=== PATIENT | female | born 1940 | race Caucasian/White ===

== ENCOUNTER 2019-09-21 16:32 | Emergency (ER) | payer OTHER ==
[2019-09-21 17:25] LABS: Basophils % 0.6 % (0-1.3); Hematocrit 29.5 % (36.0-45.0); Lymphocytes % 23.6 % (15.3-44.8); MPV 7.2 fL (7.6-11.3); RBC Red Blood Cell Count 3.34 M/uL (3.86-4.86)
[2019-09-21 17:34] LABS: Potassium 3.2 mmol/L (3.5-5.1)
[2019-09-21 17:46] LABS: Protime INR 0.97
--- NOTE | 2019-09-21 17:47 | EDPHYS ---
Physician Documentation [facility] Name: Mary Morataya Age: 79 yrs Sex: Female : 1940 Arrival Date: 09/21/2019 Time: 16:38 Bed 4 Private MD: ED Physician King Mejia HPI: 09/20 17:15 This 79 yrs old Female presents to ER via Wheelchair with complaints of Blood jr8 clot. 17:15 The patient presents with swelling, tenderness. The complaints affect the left ankle jr8 and calve . Onset: The symptoms/episode began/occurred gradually, 2 week(s) ago. Modifying factors: The symptoms are alleviated by nothing. the symptoms are aggravated by nothing. Associated signs and symptoms: The patient has no apparent associated signs or symptoms. Severity of symptoms: At their worst the symptoms were mild, in the emergency department the symptoms are unchanged. The patient has not experienced similar symptoms in the past. The patient has not recently seen a physician. Patient stated that she had hip surgery in June. Then had pneumonia this past month. Stated that about 2 weeks ago started to noticed lower leg swelling. Became concerned after the swelling did not reduce and is now constant. Had outpatient US scheduled for today. Was found to have acute DVT to left leg. Was then referred to ED at that time . Historical: - Allergies: 16:48 PENICILLINS; ll1 - PMHx: 16:48 COPD; Pneumonia; ll1 - PSHx: 16:48 hip surgery; ll1 - Immunization history:: Adult Immunizations. - Social history:: Smoking status: Patient/guardian denies using tobacco, the patient reports quitting approximately 2 years ago, Patient/guardian denies using alcohol, street drugs. ROS: 17:15 Eyes: Negative for injury, pain, redness, and discharge, ENT: Negative for injury, jr8 pain, and discharge, Neck: Negative for injury, pain, and swelling, Cardiovascular: Negative for chest pain, palpitations, and edema, Respiratory: Negative for shortness of breath, cough, wheezing, and pleuritic chest pain, Abdomen/GI: Negative for abdominal pain, nausea, vomiting, diarrhea, and constipation, Back: Negative for injury and pain, Skin: Negative for injury, rash, and discoloration, Neuro: Negative for headache, weakness, numbness, tingling, and seizure. 17:15 MS/extremity: Positive for swelling, tenderness, of the left leg. Exam: 17:15 Eyes: Pupils equal round and reactive to light, extra-ocular motions intact. Lids and jr8 lashes normal. Conjunctiva and sclera are non-icteric and not injected. Cornea within normal limits. Periorbital areas with no swelling, redness, or edema. ENT: Nares patent. No nasal discharge, no septal abnormalities noted. Tympanic membranes are normal and external auditory canals are clear. Oropharynx with no redness, swelling, or masses, exudates, or evidence of obstruction, uvula midline. Mucous membranes moist. Neck: Trachea midline, no thyromegaly or masses palpated, and no cervical lymphadenopathy. Supple, full range of motion without nuchal rigidity, or vertebral point tenderness. No Meningismus. Cardiovascular: Regular rate and rhythm with a normal S1 and S2. No gallops, murmurs, or rubs. Normal PMI, no JVD. No pulse deficits. Respiratory: Lungs have equal breath sounds bilaterally, clear to auscultation and percussion. No rales, rhonchi or wheezes noted. No increased work of breathing, no retractions or nasal flaring. Abdomen/GI: Soft, non-tender, with normal bowel sounds. No distension or tympany. No guarding or rebound. No evidence of tenderness throughout. Back: No spinal tenderness. No costovertebral tenderness. Full range of motion. Skin: Warm, dry with normal turgor. Normal color with no rashes, no lesions, and no evidence of cellulitis. Neuro: Awake and alert, GCS 15, oriented to person, place, time, and situation. Cranial nerves II-XII grossly intact. Motor strength 5/5 in all extremities. Sensory grossly intact. Cerebellar exam normal. Normal gait. 17:15 Musculoskeletal/extremity: Extremities: grossly normal except: noted in the left leg: swelling, tenderness, ROM: intact in all extremities, Circulation is intact in all extremities. Sensation intact. DVT Exam: swelling, that is mild, of the left leg, tenderness, that is mild, of the left leg, Calves: are not equal in size: left is larger than right. Vital Signs: 16:45 BP 125 / 56; Pulse 92; Resp 16; Temp 98.7; Pulse Ox 97% ; Pain 7/10; ll1 17:12 BP 123 / 58; Pulse 86; Resp 16; Pulse Ox 99% ; sv 18:13 BP 121 / 60; Pulse 82; Resp 16; Pulse Ox 99% ; sv MDM: 16:47 Patient medically screened. 8 17:15 Data reviewed: vital signs, nurses notes, lab test result(s), and as a result, I will jr8 discharge patient. Data interpreted: Pulse oximetry: on room air is 99 %. Interpretation: normal. Counseling: I had a detailed discussion with the patient and/or guardian regarding: the historical points, exam findings, and any diagnostic results supporting the discharge/admit diagnosis, lab results, the need for outpatient follow up, a family practitioner, to return to the emergency department if symptoms worsen or persist or if there are any questions or concerns that arise at home. 17:44 ED course: Hemoglobin 9.5. Patient denies hematemesis, black tarry stool, or BRBPR. No [facility] bleeding disorders that she knows of. All other labs stable. Replaced potassium. Safe to d/c home with anticoagulation and to f/u with PCP. Patient good with plan . 09/20 16:47 Order name: CBC with Diff; Complete Time: 17:31 [facility] 09/20 16:47 Order name: Basic Metabolic Panel; Complete Time: 17:42 [facility] 09/20 16:47 Order name: Protime (+inr) [facility] 09/20 16:47 Order name: Ptt, Activated [facility] 09/20 16:47 Order name: IV; Complete Time: 17:12 [facility] Administered Medications: 18:12 Drug: Potassium Chloride 40 mEq Route: PO; sv 18:12 Follow up: Response: Medication administered at discharge. sv 18:12 Drug: Xarelto 15 mg Route: PO; sv 18:12 Follow up: Response: Medication administered at discharge. sv Disposition: 19:34 Co-signature as Attending Physician, King Mejia MD. [email or web address] Disposition: 09/21/19 17:46 Discharged to Home. Impression: Acute embolism and thrombosis of deep veins of lower extremity. - Condition is Stable. - Discharge Instructions: Deep Vein Thrombosis. - Prescriptions for Xarelto 15 mg Oral Tablet - take 1 tablet by ORAL route 2 times per day for 21 days; 42 tablet. - Medication Reconciliation Form, Thank You Letter, Antibiotic Education, Prescription Opioid Use form. - Follow up: Private Physician; When: 5 - 6 days; Reason: Recheck today's complaints, Continuance of care, Re-evaluation by your physician. - Problem is new. - Symptoms have improved. Signatures: Dispatcher [employer] Acacia Connelly RN RN Parth Figueroa PA PA jr8 Juan M Frey RN RN 1 King Mejia MD MD [email or web address] Corrections: (The following items were deleted from the chart) 18:13 17:46 09/21/2019 17:46 Discharged to Home. Impression: Acute embolism and thrombosis of sv deep veins of lower extremity. Condition is Stable. Forms are Medication Reconciliation Form, Thank You Letter, Antibiotic Education, Prescription Opioid Use. Follow up: Private Physician; When: 5 - 6 days; Reason: Recheck today's complaints, Continuance of care, Re-evaluation by your physician. Problem is new. Symptoms have improved. jr8
--- NOTE | 2019-09-21 17:47 | ER ---
Nurse's Notes [facility] Name: Mary Morataya Age: 79 yrs Sex: Female : 1940 Arrival Date: 09/21/2019 Time: 16:38 Bed 4 Private MD: Diagnosis: Acute embolism and thrombosis of deep veins of lower extremity Presentation: 09/20 16:45 Chief complaint: Patient states: Left leg DVT. Sent by outpatient ultrasound. ll1 Coronavirus screen: Proceed with normal triage. Patient denies a cough. Patient denies shortness of breath or difficulty breathing. Patient denies measured and/or subjective temperature greater than 100.4F prior to today's visit. Patient denies travel on a cruise ship or to a country [facility] currently lists as an affected area. Patient denies contact with known and/or suspected case of COVID-19. Ebola Screen: Patient denies travel to an Ebola-affected area in the 21 days before illness onset. Initial Sepsis Screen: Does the patient meet any 2 criteria? HR > 90 bpm. Risk Assessment: Do you want to hurt yourself or someone else? Patient reports no desire to harm self or others. Onset of symptoms was September 21, 2019. 16:45 Method Of Arrival: Wheelchair ll1 16:45 Acuity: TIMOTHY 3 ll1 16:55 Initial Sepsis Screen: Does the patient have a suspected source of infection? No. sv Patient's initial sepsis screen is negative. Historical: - Allergies: 16:48 PENICILLINS; ll1 - PMHx: 16:48 COPD; Pneumonia; ll1 - PSHx: 16:48 hip surgery; ll1 - Immunization history:: Adult Immunizations. - Social history:: Smoking status: Patient/guardian denies using tobacco, the patient reports quitting approximately 2 years ago, Patient/guardian denies using alcohol, street drugs. Screenin:55 Abuse screen: Denies threats or abuse. Denies injuries from another. Nutritional sv screening: No deficits noted. Tuberculosis screening: No symptoms or risk factors identified. Fall Risk None identified. Assessment: 16:55 General: Appears in no apparent distress. comfortable, slender, well developed, sv Behavior is calm, cooperative, appropriate for age. Pain: Complains of pain in left leg Pain currently is 7 out of 10 on a pain scale. Quality of pain is described as shooting, Pain began about 2 weeks ago Is intermittent, Aggravated by increased activity. Neuro: Level of Consciousness is awake, alert, obeys commands, Oriented to person, place, time, situation, Moves all extremities. Full function. Respiratory: Respiratory effort is even, unlabored, Respiratory pattern is regular, symmetrical. Derm: Skin is intact, Skin is pink, warm \T\ dry. Musculoskeletal: Range of motion: intact in all extremities, Swelling present in left leg. 18:13 Reassessment: Patient appears in no apparent distress at this time. No changes from sv previously documented assessment. Patient and/or family updated on plan of care and expected duration. Pain level reassessed. Patient is alert, oriented x 3, equal unlabored respirations, skin warm/dry/pink. 18:13 Reassessment: Pt took her home O2 tank home. sv Vital Signs: 16:45 BP 125 / 56; Pulse 92; Resp 16; Temp 98.7; Pulse Ox 97% ; Pain 7/10; ll1 17:12 BP 123 / 58; Pulse 86; Resp 16; Pulse Ox 99% ; sv 18:13 BP 121 / 60; Pulse 82; Resp 16; Pulse Ox 99% ; sv ED Course: 16:38 Patient arrived in ED. mr 16:47 Triage completed. ll1 16:47 Parth Bell PA is PHCP. jr8 16:47 King Meija MD is Attending Physician. jr8 16:48 Arm band placed on Patient placed in an exam room, on a stretcher. ll1 16:55 Patient has correct armband on for positive identification. Bed in low position. Call sv light in reach. Adult w/ patient. Pulse ox on. NIBP on. Door closed. Head of bed elevated. 16:58 Acacia Neely, KARRI is Primary Nurse. sv 17:00 Inserted saline lock: 20 gauge in left antecubital area, using aseptic technique. Blood sv collected. Flushed left antecubital with 5 ml normal saline. 17:41 Awaiting lab results. sv 18:12 No provider procedures requiring assistance completed. IV discontinued, intact, sv bleeding controlled, No redness/swelling at site. Pressure dressing applied. Administered Medications: 18:12 Drug: Potassium Chloride 40 mEq Route: PO; sv 18:12 Follow up: Response: Medication administered at discharge. sv 18:12 Drug: Xarelto 15 mg Route: PO; sv 18:12 Follow up: Response: Medication administered at discharge. sv Outcome: 17:46 Discharge ordered by . kaleb 18:13 Discharged to home via wheelchair, with family. sv 18:13 Condition: stable 18:13 Discharge instructions given to patient, family, Instructed on discharge instructions, follow up and referral plans. medication usage, Demonstrated understanding of instructions, follow-up care, medications, Prescriptions given X 1. 18:13 Patient left the ED. sv Signatures: Acacia Neely, RN RN Joslyn Miller mr Ray, Parth, Juan M Washington RN RN ll1
[2019-09-21] MEDS ORDERED: POTASSIUM CL SA 10 MEQ TAB PO ONE (17:56)
[2019-09-21] MEDS ORDERED: RIVAROXABAN 15 MG TABLET PO ONE (18:00)
--- OUTSIDE RECORDS SUMMARY | 2019-09-21 18:00 | XMS REPORT | Continuity of Care Document ---
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 ast UNSPECIFIED ORGANISM SEPSIS, Active [facility] st UNSPECIFIED ORGANISM Medications Medication Details Route Status Patient Ordering Order Source Instructions Provider Date Symbicort 80/4.5 2 puff, Active inhalation aerosol INHALATION, 2019 [facility] with adapter BID, 0 Refill(s) tramadol 50 mg = 1 tab, Active hydrochloride 50 PO, Q4H, PRN 2019 [facility] MG Oral Tablet Pain, X 10 day, # 60 tab, 0 Refill(s) Cefuroxime 500 MG 500 mg = 1 Active Oral Tablet tab, PO, BID, 2019 [facility] [Ceftin] X 7 day, # 14 tab, 0 Refill(s), Pharmacy: [facility] [id number] linezolid 600 MG 600 mg = 1 Active Oral Tablet tab, PO, Q12H, 2019 [facility] [Zyvox] X 7 day, # 14 tab, 0 Refill(s), Pharmacy: [facility] [id number] vancomycin + 2001 mg: No Longer Sodium Chloride infuse over Active 2019 [place] 0.9% IV 250 mL 2.5 hours For adult patients only: Round to nearest 250 mg per Medical Staff approval MEDICATION WASTE Product Size: 1000 mg Product Wasted: ___ mg Attn:KARRI-Vancomyc Attn:KARRI-Vanc Inactive 08/10 in trough reminder omycin trough 2019 [facility] 08/10/19 @ reminder 19:30 08/10/19 @ 19:30, Attn:KARRI, Drug form: MISC, Route: MISC, ONCE, 08/10/19 19:00:00 CDT, Stop date: 08/10/19 19:00:00 CDT, 0 Mupirocin 1 appl, Route: No Longer NASAL, Q12H, 2019 [facility] Drug form: OINT, Start date: 08/09/19 21:00:00 CDT, Duration: 5 day, Stop date: 08/14/19 9:00:00 CDT, MRSA Decolonization , 0 vancomycin + 2001 mg: No Longer Sodium Chloride infuse over Active 2019 [place] 0.9% IV 250 mL 2.5 hours For adult patients only: Round to nearest 250 mg per Medical Staff approval MEDICATION WASTE Product Size: 1000 mg Product Wasted: ___ mg Vancomycin Vancomycin Inactive Pharmacy Dosing Pharmacy 2019 [facility] Protocol - BERNARDA Dosing Protocol - BERNARDA, Reminder, Drug form: MISC, Route: MISC, ONCALL, 08/09/19 11:00:00 CDT, Stop date: 08/14/19 23:59:00 CDT, 0 Naproxen 500 mg, 1 tab, No Longer Route: PO, 2019 [facility] Drug form: TAB, BID, Dosing Weight 54.545, kg, PRN Pain Score 4-6, Start date: 08/09/19 9:53:00 CDT, Duration: 30 day, Stop date: 09/08/19 9:52:00 CDT, 0 cefepime Notes: (Same No Longer As: Maxipime) 2019 [facility] MEDICATION WASTE Product Size: 1000 mg Product Wasted: ___ mg meloxicam 15 mg 15 mg = 1 tab, No Longer oral tablet PO, Daily Active 2019 [facility] Robitussin DM 10 mL, PO, Active Sugar Free Q6H, PRN 2019 [facility] Cough/Congesti on, 0 Refill(s) Acetaminophen 325 650 mg = 2 Active MG Oral Tablet tab, PO, Q4H, 2019 [place] [Tylenol] PRN Pain Vitamin C 500 mg 500 mg = 1 Active oral tablet tab, PO, Daily 2019 [facility] Vancomycin 1 ea, Route: Inactive MISC ONCALL, 2019 [facility] Dosing Weight 54.545, kg, Start date: 08/08/19 17:00:00 CDT, Duration: 7 day, Stop date: 08/15/19 16:59:00 CDT, Pharmacy to dose, ABX Indication: Pneumonia vancomycin + 2001 mg: Inactive Sodium Chloride infuse over 2019 [facility] 0.9% IV 250 mL 2.5 hours For adult patients only: Round to nearest 250 mg per Medical Staff approval MEDICATION WASTE Product Size: 1000 mg Product Wasted: ___ mg Tylenol Notes: Do not No Longer exceed [address] gm/day. (Same as: Tylenol) D5LR 1,000 mL 1,000 mL, No Longer Rate: [address] ml/hr, Infuse over: 13.3 hr, Route: IV, Dosing Weight 54.545 kg, Total Volume: 1,000, Start date: 08/08/19 16:12:00 CDT, Duration: 30 day, Stop date: 09/07/19 16:11:00 CDT, 1.59, m2, 0 Albuterol 0.833 Notes: (Same No Longer H MG/ML / as: Duoneb) Active 2019 [facility] Ipratropium [place] 0.167 MG/ML Inhalant Solution Acetaminophen Notes: Do not Inactive exceed 4 2019 gm/day. (Same as: Tylenol) methylPREDNISolone Notes: (Same Inactive SODium SUCCinate as:Solu-MEDROL 2019 , A-Methapred) cefepime Notes: (Same Inactive As: Maxipime) 2019 MEDICATION WASTE Product Size: 1000 mg Product Wasted: ___ mg Vancomycin 2001 mg: Inactive infuse over 2019 2.5 hours For adult patients only: Round to nearest 250 mg per Medical Staff approval MEDICATION WASTE Product Size: 1000 mg Product Wasted: ___ mg Saline Flush 0.9% Notes: Same No Longer as: BD Active 2019 Posif[facility] Sterile Azithromycin Notes: (Same Inactive As: Zithromax 2019 IV) Albuterol 0.833 3 mL, NEB, Active MG/ML / RQ6H, PRN 2019 [facility] Shortness of [place] 0.167 breath, 0 MG/ML Inhalant Refill(s) Solution Albuterol 0.83 NEB, RQID, 0 Active MG/ML Inhalant Refill(s) [address] [facility] st Solution bisacodyl 10 mg 10 mg = 1 Active rectal suppository supp, TN, 2019 [place] Daily, PRN Constipation, 0 Refill(s) Docusate Sodium 100 mg = 1 Active 100 MG Oral cap, PO, BID, 2019 [facility] ast Capsule PRN as needed for constipation, 0 Refill(s) Enoxaparin 30 mg = 0.3 Active mL, SUB-Q, 2019 [id number], 0 Refill(s) Lidocaine 1 patch, TOP, Active Hydrochloride 0.05 Q24H, 0 2019 [facility] MG/MG Transdermal Refill(s) Patch [Lidoderm] Enoxaparin Notes: (Same No Longer as: Lovenox) 2019 remove patch 1 patch, No Longer Route: TOP, Active 2019 Daily, Drug form: ERFILM, Start date: 07/20/19 21:00:00 CDT, Stop date: 08/19/19 9:00:00 CDT, 0 Clindamycin 900 mg, 50 mL, No Longer Route: IVPB, Active 2019 [facility] Drug form: INJ, [id number], Dosing Weight 54.545, kg, (for patients weighing 80kg or greater), Start date: 07/20/19 16:00:00 CDT, Duration: 3 doses or times, Stop date: 07/21/19 8:00:00 CDT, ABX Indication: Surgical Prophylaxis, 0 Sodium Chloride 500 mL, 1500 Inactive 0.9% (Bolus) IV ml/hr, Infuse [facility] Over: 20 minutes, Route: IV, 500, Drug form: INJ, ONCE, Dosing Weight 54.545 kg, Start date: 07/20/19 13:46:00 CDT, PRN Other -See Comment, 0 Hydralazine 10 mg, Route: Inactive IVP, Q20Min, 2019 [facility] Dosing Weight 54.545, kg, PRN Elevated BP, Start date: 07/20/19 13:46:00 CDT, Duration: 2 doses or times, Stop date: Limited # of times Acetaminophen 1,000 mg, Inactive Route: PO, 2019 [facility] Drug form: TAB, ONCE, Dosing Weight 54.545, kg, PRN Pain Score 1-3, Start date: 07/20/19 13:46:00 CDT Oxycodone 5 mg, Route: Inactive Hydrochloride 5 MG PO, Drug form: 2019 [facility] Oral Tablet TAB, Q4H, Dosing Weight 54.545, kg, PRN Pain Score 4-6, Start date: 07/20/19 13:46:00 CDT, Duration: 30 day, Stop date: 08/19/19 13:45:00 CDT Morphine 2 mg, Route: Inactive IVP, Q5Min, 2019 [facility] Dosing Weight 54.545, kg, PRN Pain Score 4-6, Start date: 07/20/19 13:46:00 CDT, Duration: 5 doses or times, Stop date: Limited # of times Fentanyl 25 microgram, Inactive Route: IVP, 2019 [facility] Q5Min, Dosing Weight 54.545, kg, PRN Pain Score 4-6, Priority: Routine, Start date: 07/20/19 13:46:00 CDT, Duration: 4 doses or times, Stop date: Limited # of times Hydromorphone 0.5 mg, Route: Inactive IVP, Q5Min, 2019 [facility] Dosing Weight 54.545, kg, PRN Pain Score 7-10, Start date: 07/20/19 13:46:00 CDT, Duration: 4 doses or times, Stop date: Limited # of times Flumazenil 0.2 mg, Route: Inactive IVP, PRN, 2019 [facility] Dosing Weight 54.545, kg, PRN Benzodiazepine Reversal, Initial dose, Start date: 07/20/19 13:46:00 CDT, Duration: 30 day, Stop date: 08/19/19 13:45:00 CDT Naloxone 0.4 mg, Route: Inactive IVP, Q2MIN, 2019 [facility] Dosing Weight 54.545, kg, PRN Narcotic Reversal, Start date: 07/20/19 13:46:00 CDT, Duration: 8 doses or times, Stop date: Limited # of times Ephedrine 5 mg, Route: Inactive IVP, Q5Min, 2019 [facility] Dosing Weight 54.545, kg, PRN Low Blood Pressure, Start date: 07/20/19 13:46:00 CDT, Duration: 30 day, Stop date: 08/19/19 13:45:00 CDT Albuterol 0.83 2.49 mg, Inactive MG/ML Inhalant Route: NEB, 2019 [place] [facility] Q20Min, Dosing Weight 54.545, kg, PRN Wheezing, Priority: STAT, Start date: 07/20/19 13:46:00 CDT, Duration: 30 day, Stop date: 08/19/19 13:45:00 CDT Diphenhydramine 12.5 mg, Inactive Route: IVP2019 [facility] Drug form: INJ, Q6H, Dosing Weight 54.545, kg, PRN Itching, Start date: 07/20/19 13:46:00 CDT, Duration: 30 day, Stop date: 08/19/19 13:45:00 CDT Ondansetron 4 mg, Route: Inactive IVP, ONCE, 2019 [facility] Dosing Weight 54.545, kg, PRN Nausea & Vomiting, Start date: 07/20/19 13:46:00 CDT glycopyrrolate Route: IV, Inactive (ANES) Drug form: 2019 [facility] INJ, ONCE, Stop date: 07/20/19 13:26:00 CDT neostigmine (ANES) Route: IV, Inactive 07/19/ [facility] H Drug form: 2019 [facility] INJ, ONCE, Stop date: 07/20/19 13:26:00 CDT ondansetron (ANES) Route: IV, Inactive 07/19/ [facility] Drug form: 2019 [facility] INJ, ONCE, Stop date: 07/20/19 12:33:00 CDT dexamethasone Route: IV, Inactive (ANES) Drug form: 2019 [facility] INJ, ONCE, Stop date: 07/20/19 12:33:00 CDT ePHEDrine (ANES) Route: IV, Inactive Drug form: 2019 [facility] INJ, ONCE, Stop date: 07/20/19 12:03:00 CDT ceFAZolin (ANES) Route: IV, Inactive Drug form: 2019 [facility] INJ, ONCE, Stop date: 07/20/19 11:58:00 CDT phenylephrine Route: IV, Inactive (ANES) Drug form: 2019 [facility] INJ, ONCE, Stop date: 07/20/19 11:53:00 CDT lidocaine (ANES) Route: IV, Inactive Drug form: 2019 [facility] INJ, ONCE, Stop date: 07/20/19 11:38:00 CDT fentaNYL (ANES) Route: IV, Inactive Drug form: 2019 [facility] INJ, ONCE, Stop date: 07/20/19 11:38:00 CDT propofol (ANES) Route: IV, Inactive Drug form: 2019 [facility] INJ, ONCE, Stop date: 07/20/19 11:38:00 CDT rocuronium (ANES) Route: IV, Inactive Drug form: 2019 [facility] INJ, ONCE, Stop date: 07/20/19 11:38:00 CDT succinylcholine Route: IV, Inactive (ANES) Drug form: 2019 [facility] INJ, ONCE, Stop date: 07/20/19 11:38:00 CDT Calcium Chloride 1,000 mL, Inactive 0.0014 MEQ/ML / Rate: 75 [facility] Potassium Chloride ml/hr, Infuse 0.004 MEQ/ML / over: 13.3 hr, Sodium Chloride Route: IV, 0.103 MEQ/ML / Dosing Weight Sodium Lactate 54.545 kg, 0.028 MEQ/ML Total Volume: Injectable 1,000, Start Solution date: 07/20/19 10:55:00 CDT, Duration: 30 day, Stop date: 08/19/19 10:54:00 CDT, 1.6, m2 Lactated Ringers Route: IV, Inactive Injection IV Total Volume: 2019 [facility] (ANES) 1000 mL 1,000, Start date: 07/20/19 10:51:00 CDT, Stop date: 07/20/19 11:51:00 CDT Budesonide 0.16 2 puff, Route: No Longer MG/ACTUAT / INHALATION, Active 2019 [facility] formoterol Drug Form: fumarate 0.0045 AERO/A, Dosing MG/ACTUAT Metered Weight 54.545, Dose Inhaler kg, BID, Start date: 07/20/19 9:00:00 CDT, Duration: 30 day, Stop date: 08/18/19 17:00:00 CDT celecoxib Notes: NSAID. No Longer Please check 2019 indication. Not for seizure. (Same As: CeleBREX) Pulmicort Respules Notes: (Same No Longer As: Pulmicort) 2019 [facility] albuterol Notes: SEE RT No Longer DOCUMENTATION 2019 (Same as: Proventil) Thyroxine Notes: Take 1 No Longer hour before or 2019 2 hours after meal; Enteral feeds may interefere with the absorption of this medication.(Sa me as:Levothroid, Synthroid) levothyroxine 50 50 microgram = No Longer mcg (0.05 mg) oral 1 tab, PO, Active [facility] tablet Daily, 0 Refill(s) Budesonide 0.16 2 puff, Active MG/ACTUAT / INHALATION, 2019 t formoterol BID, # 6 gm, 0 fumarate 0.0045 Refill(s) MG/ACTUAT Metered Dose Inhaler gabapentin Notes: (Same No Longer as: Neurontin) 2019 [facility] Albuterol 0.833 Notes: (Same No Longer H MG/ML / as: Duoneb) 2019 [facility] Ipratropium [place] 0.167 MG/ML Inhalant Solution Acetaminophen Notes: Do not No Longer exceed 4 [facility] 2019 [facility] gm/day. (Same as: Tylenol) Tramadol 50 mg, 1 tab, No Longer Route: PO, 2019 [facility] Drug form: TAB, Q6H, Dosing Weight 54.545, kg, PRN Pain Score 4-6, Start date: 07/19/19 20:46:00 CDT, Duration: 5 day, Stop date: 07/24/19 20:45:00 CDT, 0 Morphine Notes: (Same No Longer as:MORPhine 2019 [facility] Sulfate) Docusate Notes: (Same No Longer as: Colace) 2019 [facility] (Do Not Crush) Bisacodyl Notes: (Same No Longer As: Dulcolax, 2019 [facility] Bisco-Lax) tizanidine Notes: (Same No Longer As: Zanaflex) 2019 [facility] Ondansetron Notes: (Same No Longer as: Zofran) 2019 [facility] MEDICATION WASTE Product Size: 4 mg Product Wasted: ___ mg Melatonin Notes: (Same No Longer as: Melatonin) 2019 [facility] Lidocaine 1 patch, No Longer Hydrochloride 0.05 Route: TOP, Active 2019 [facility] MG/MG Transdermal Q24H, Drug Patch [Lidoderm] form: FILM, Start date: 07/19/19 20:45:00 CDT, Duration: 30 day, Stop date: 08/17/19 20:45:00 CDT, 0 NS (Bolus) IV 500 mL, 500 Inactive ml/hr, Infuse 2019 [facility] Over: 1 hr, Route: IV, 500, Drug form: INJ, ONCE, Priority: STAT, Dosing Weight 54.545 kg, Start date: 07/19/19 18:21:00 CDT, Stop date: 07/19/19 18:21:00 CDT, 0 Fentanyl Notes: (Same Inactive as: Sublimaze) 2019 [facility] Preservative free. levothyroxine 50 50 microgram = Active mcg (0.05 mg) oral 1 tab, PO, 2019 [facility] tablet Daily, 0 Refill(s) celecoxib 200 mg 200 mg = 1 Active oral capsule cap, PO, BID, 2019 [facility] 0 Refill(s) Symbicort 160/4.5 2 puff, Active inhalation aerosol INHALATION, 2019 [facility] with adapter BID, 0 Refill(s) Allergies, Adverse Reactions, Alerts Substance Category Reaction Severity Reaction Status Date Comments S ource type Reported codeine Assertion Drug Active allergy [place] [facility] penicillin Assertion Drug Active [facility] allergy [place] tetanus Assertion Drug Active toxoid allergy [place] [facility] Immunizations No Data Provided for This Section Results Order Name Results Value Reference Date Interpretation Comments [place] Range CHEM PANEL POC 0.6 0.5 - 1.4 08/17 Creatinine /2019 [facility] CHEM PANEL eGFR 87 08/17 Result Comment: The [facility] eGFR is calculated using the CKD-EPI formula. In most young, healthy individuals the eGFR will be >90 mL/min/1.73m2 . The eGFR declines with age. An eGFR of 60-89 may be normal in some populations, particularly the elderly, for whom the CKD-EPI formula has not been extensively validated. Use of the eGFR is not recommended in the following populations:< br/>
Bryanna viduals with unstable creatinine concentration s, including patients and those with serious co-morbid conditions.<b r/>
Patie nts with extremes in muscle mass or diet.

The data above are obtained from the National Kidney Disease Education Program (NKDEP) which additionally recommends that when the eGFR is used in patients with extremes of body mass index for purposes of drug dosing, the eGFR should be multiplied by the estimated BMI. HEMATOLOGY RBC Morph See Note Normal 08/10 [facility] (08/11/19 5:01 AM) /2019 [facility] ast HEMATOLOGY Plt Morph Normal Normal 08/10 [facility] (08/11/19 5:01 AM) /2019 [facility] ast HEMATOLOGY Segs 91.6 45.0 - 08/10 [facility] 75.0 /2019 [facility] HEMATOLOGY Lymphocytes 2.9 20.0 - 08/10 [facility] 40.0 [facility] HEMATOLOGY Monocytes 4.4 2.0 - 12.0 08/10 [facility] HEMATOLOGY Eosinophils 0.7 0.0 - 4.0 08/10 [facility] HEMATOLOGY Basophils 0.4 0.0 - 1.0 08/10 [facility] HEMATOLOGY Neutrophils 11.6 1.5 - 8.1 08/10 MH # /2019 [facility] HEMATOLOGY Lymphocytes 0.4 1.0 - 5.5 08/10 MH # /2019 [facility] HEMATOLOGY Monocytes # 0.6 0.0 - 0.8 08/10 [facility] HEMATOLOGY Eosinophils 0.1 0.0 - 0.5 08/10 MH # /2019 [facility] HEMATOLOGY Anisocyte 1+ None Seen 08/10 [facility] *ABN* /2019 [facility] (08/11/19 5:01 AM) HEMATOLOGY Toxic Gran Moderate None Seen 08/10 *ABN* /2019 [facility] (08/11/19 5:01 AM) HEMATOLOGY WBC 12.6 3.7 - 10.4 08/10 [facility] HEMATOLOGY RBC 2.86 4.20 - 08/10 MH 5.40 /2019 [facility] HEMATOLOGY Hgb 8.7 12.0 - 08/10 MH 16.0 [facility] HEMATOLOGY Hct 26.0 36.0 - 08/10 MH 48.0 [facility] HEMATOLOGY MCV 91.1 80.0 - 08/10 MH 98.0 [facility] HEMATOLOGY MCH 30.4 27.0 - 08/10 MH 31.0 [facility] HEMATOLOGY MCHC 33.4 32.0 - 08/10 MH 36.0 [facility] HEMATOLOGY RDW 15.6 11.5 - 05 MH 14.5 [facility] HEMATOLOGY Platelet 254 133 - 450 08/10 [facility] HEMATOLOGY MPV 8.1 7.4 - 10.4 08/10 [facility] TOXICOLOGY Vanco Tr 7.9 08/10 [facility] TOXICOLOGY Vanco Tr TND 1920 08/10 [facility] CHEM PANEL Glucose Lvl 127 70 - 99 08/09 [facility] CHEM PANEL BUN 29 7 - 22 08/09 [facility] CHEM PANEL Creatinine 0.59 0.50 - 08/09 [facility] Lvl 1.40 /2019 [facility] CHEM PANEL Sodium Lvl 135 135 - 145 08/09 [facility] CHEM PANEL Potassium 4.6 3.5 - 5.1 / MH Lvl /2019 [facility] CHEM PANEL Chloride Lvl 103 95 - 109 08/09 [facility] CHEM PANEL CO2 27 24 - 32 08/09 [facility] CHEM PANEL Calcium Lvl 9.0 8.5 - 10.5 08/09 [facility] CHEM PANEL AGAP 9.6 10.0 - 08/09 MH 20.0 [facility] CHEM PANEL eGFR 87 08/09 Result Comment: The [facility] eGFR is calculated using the CKD-EPI formula. In most young, healthy individuals the eGFR will be >90 mL/min/1.73m2 . The eGFR declines with age. An eGFR of 60-89 may be normal in some populations, particularly the elderly, for whom the CKD-EPI formula has not been extensively validated. Use of the eGFR is not recommended in the following populations:< br/>
Bryanna viduals with unstable creatinine concentration s, including patients and those with serious co-morbid conditions.<b r/>
Patie nts with extremes in muscle mass or diet.

The data above are obtained from the National Kidney Disease Education Program (NKDEP) which additionally recommends that when the eGFR is used in patients with extremes of body mass index for purposes of drug dosing, the eGFR should be multiplied by the estimated BMI. HEMATOLOGY RBC Morph Normal Normal 08/09 [facility] (08/10/19 6:06 AM) [facility] ast HEMATOLOGY Plt Morph Normal Normal 08/09 (08/10/19 6:06 AM) [facility] HEMATOLOGY Segs 93.3 45.0 - 08/09 MH 75.0 /2019 [facility] HEMATOLOGY Lymphocytes 1.3 20.0 - 08/09 MH 40.0 2020 [facility] HEMATOLOGY Monocytes 5.0 2.0 - 12.0 08/09 [facility] HEMATOLOGY Basophils 0.4 0.0 - 1.0 05/14 MH /2020 [facility] HEMATOLOGY Neutrophils 13.9 1.5 - 8.1 05/14 MH # /2020 [facility] HEMATOLOGY Lymphocytes 0.2 1.0 - 5.5 05/14 MH # /2020 [facility] HEMATOLOGY Monocytes # 0.7 0.0 - 0.8 05/14 MH /2019 [facility] HEMATOLOGY Basophils # 0.1 0.0 - 0.2 05/14 MH /2019 [facility] HEMATOLOGY WBC 14.9 3.7 - 10.4 05/14 MH /2020 [facility] HEMATOLOGY RBC 2.97 4.20 - 05/14 MH 5.40 /2019 [facility] HEMATOLOGY Hgb 8.6 12.0 - 05/14 MH 16.0 /2019 [facility] HEMATOLOGY Hct 26.8 36.0 - 05/ MH 48.0 /2019 [facility] HEMATOLOGY MCV 90.0 80.0 - 05/ MH 98.0 /2019 [facility] HEMATOLOGY MCH 29.0 27.0 - 05/ MH 31.0 /2019 [facility] HEMATOLOGY MCHC 32.2 32.0 - 05/ MH 36.0 /2019 [facility] HEMATOLOGY RDW 15.1 11.5 - 05/14 MH 14.5 /2019 [facility] HEMATOLOGY Platelet 222 133 - 450 05/14 MH /2019 [facility] HEMATOLOGY MPV 8.6 7.4 - 10.4 05/14 MH /2019 [facility] TOXICOLOGY Vanco Lvl 9.1 05/13 MH /2019 [facility] CHEM PANEL Glucose Lvl 137 70 - 99 05/13 MH [facility] CHEM PANEL BUN 31 7 - 22 05/13 [facility] CHEM PANEL Creatinine 0.71 0.50 - 05/13 MH Lvl 1.40 /2019 [facility] CHEM PANEL Sodium Lvl 135 135 - 145 05/13 MH /2019 [facility] CHEM PANEL Potassium 4.7 3.5 - 5.1 05/13 MH Lvl /2020 [facility] CHEM PANEL Chloride Lvl 101 95 - 109 05/13 [facility] CHEM PANEL CO2 26 24 - 32 05/13 MH /2020 [facility] CHEM PANEL AGAP 12.7 10.0 - 05/13 MH 20.0 /2019 [facility] CHEM PANEL Calcium Lvl 9.9 8.5 - 10.5 05/13 MH /2019 [facility] CHEM PANEL B/C Ratio 44 6 - 25 05/13 [facility] CHEM PANEL Total 6.7 6.4 - 8.4 05/13 MH Protein /2019 [facility] CHEM PANEL Albumin Lvl 1.3 3.5 - 5.0 08/08 [facility] CHEM PANEL Globulin 5.4 2.7 - 4.2 08/08 [facility] CHEM PANEL A/G Ratio 0.2 0.7 - 1.6 08/08 [facility] CHEM PANEL ALT 62 0 - 65 08/08 [facility] CHEM PANEL AST 108 0 - 37 08/08 [facility] CHEM PANEL Alk Phos 94 39 - 136 08/08 [facility] CHEM PANEL Bili Total 0.5 0.2 - 1.3 08/08 [facility] CHEM PANEL eGFR 81 08/08 Result Comment: The [facility] eGFR is calculated using the CKD-EPI formula. In most young, healthy individuals the eGFR will be >90 mL/min/1.73m2 . The eGFR declines with age. An eGFR of 60-89 may be normal in some populations, particularly the elderly, for whom the CKD-EPI formula has not been extensively validated. Use of the eGFR is not recommended in the following populations:< br/>
Bryanna viduals with unstable creatinine concentration s, including patients and those with serious co-morbid conditions.<b r/>
Patie nts with extremes in muscle mass or diet.

The data above are obtained from the National Kidney Disease Education Program (NKDEP) which additionally recommends that when the eGFR is used in patients with extremes of body mass index for purposes of drug dosing, the eGFR should be multiplied by the estimated BMI. HEMATOLOGY Segs 80.0 45.0 - 08/08 MH 75.0 [facility] HEMATOLOGY Bands 8.0 0.0 - 11.0 08/08 [facility] HEMATOLOGY Lymphocytes 3.0 20.0 - 08/08 MH 40.0 [facility] HEMATOLOGY Monocytes 9.0 2.0 - 12.0 08/08 [facility] HEMATOLOGY Neutrophils 15.0 1.5 - 8.1 08/08 MH # /2019 [facility] HEMATOLOGY Lymphocytes 0.5 1.0 - 5.5 08/08 MH # /2019 [facility] HEMATOLOGY Monocytes # 1.5 0.0 - 0.8 08/08 [facility] HEMATOLOGY Tot Cell Ct 100 08/08 [facility] HEMATOLOGY Toxic Gran Slight 08/08 [facility] HEMATOLOGY Large Plt Moderate None Seen 05/13 [facility] *ABN* /2019 [facility] (08/09/19 5:42 AM) HEMATOLOGY WBC 17.1 3.7 - 10.4 08/08 MH /2019 [facility] HEMATOLOGY RBC 3.63 4.20 - 08/08 MH 5.40 /2019 [facility] HEMATOLOGY Hgb 10.6 12.0 - 08/08 MH 16.0 /2019 [facility] HEMATOLOGY Hct 33.2 36.0 - 08/08 MH 48.0 /2019 [facility] HEMATOLOGY MCV 91.4 80.0 - 08/08 MH 98.0 /2019 [facility] HEMATOLOGY MCH 29.2 27.0 - 08/08 MH 31.0 /2019 [facility] HEMATOLOGY MCHC 31.9 32.0 - 08/08 MH 36.0 /2019 [facility] HEMATOLOGY RDW 15.1 11.5 - 08/08 MH 14.5 /2019 [facility] HEMATOLOGY Platelet 259 133 - 450 08/08 [facility] HEMATOLOGY MPV 8.3 7.4 - 10.4 08/08 [facility] CHEM PANEL Lactic Acid 1.3 0.5 - 2.2 08/08 Lvl /2019 [facility] BACTERIAL - MRSA by PCR Positive 1 08/07 Result SEROLOGY *ABN* /2019 Comment: [facility] (08/08/19 4:51 PM) "Significant Findings called to Kiara Little at 08/09/2019 04:19 by DO. Read Back OK." IMMUNOLOGY Coronavirus Not Detected Not 08/07 (COVID-19) (08/08/19 4:51 PM) Detected /2019 [place] GABI CARDIAC BNP 162 <=100 08/07 ENZYMES pg/mL /2019 [facility] ANEMIA Ferritin Lvl 1222 5 - 204 08/07 STUDY /2019 [facility] CARDIAC Total CK 17 12 - 191 08/07 ENZYMES /2019 [facility] CARDIAC Troponin-I 0.02 0.00 - 08/07 ENZYMES 0.40 /2019 [facility] CHEM PANEL Procalcitoni 1.69 0.00 - 08/07 n Lvl 0.10 /2019 [facility] CHEM PANEL Glucose Lvl 49 70 - 99 08/07 Result MH /2019 Comment: [facility] Critical Result(s) called to _Cappf E. at 08/08/2019 15:12 by clarice. Read back OK.
3236 CHEM PANEL BUN 13 7 - 22 08/07 MH /2019 [facility] CHEM PANEL Creatinine <0.15 0.50 - 05/12 MH Lvl 1.40 /2020 [facility] CHEM PANEL Sodium Lvl 134 135 - 145 05/12 MH /2020 [facility] CHEM PANEL Potassium 4.1 3.5 - 5.1 05/12 MH Lvl /2020 [facility] CHEM PANEL Chloride Lvl 104 95 - 109 05/12 MH /2019 [facility] CHEM PANEL CO2 14 24 - 32 05/12 MH /2020 [facility] CHEM PANEL AGAP 20.1 10.0 - 05/12 MH 20.0 /2020 [facility] CHEM PANEL Calcium Lvl 6.8 8.5 - 10.5 05/12 Result MH Comment: [facility] Critical Result(s) called to _Cappf E. at 08/08/2019 15:12 by clarice. Read back OK. CHEM PANEL Total 2.5 6.4 - 8.4 05/12 MH Protein /2020 [facility] CHEM PANEL Albumin Lvl 0.8 3.5 - 5.0 05/12 MH /2020 [facility] CHEM PANEL Globulin 1.7 2.7 - 4.2 05/12 MH /2019 [facility] CHEM PANEL A/G Ratio 0.5 0.7 - 1.6 05/12 MH /2020 [facility] CHEM PANEL ALT 11 0 - 65 05/12 MH /2020 [facility] CHEM PANEL AST 25 0 - 37 05/12 MH /2020 [facility] CHEM PANEL Alk Phos 29 39 - 136 05/12 MH /2019 [facility] CHEM PANEL Bili Total 0.3 0.2 - 1.3 05/12 MH /2019 [facility] CHEM PANEL eGFR 137 05/12 Result Comment: The [facility] eGFR is calculated using the CKD-EPI formula. In most young, healthy individuals the eGFR will be >90 mL/min/1.73m2 . The eGFR declines with age. An eGFR of 60-89 may be normal in some populations, particularly the elderly, for whom the CKD-EPI formula has not been extensively validated. Use of the eGFR is not recommended in the following populations:< br/>
Bryanna viduals with unstable creatinine concentration s, including patients and those with serious co-morbid conditions.<b r/>
Patie nts with extremes in muscle mass or diet.

The data above are obtained from the National Kidney Disease Education Program (NKDEP) which additionally recommends that when the eGFR is used in patients with extremes of body mass index for purposes of drug dosing, the eGFR should be multiplied by the estimated BMI. CHEM PANEL Lactic Acid 1.2 0.5 - 2.2 08/07 MH Lvl /2019 [facility] HEMATOLOGY PT 14.9 12.0 - 08/07 MH 14.7 [facility] HEMATOLOGY INR 1.16 0.85 - 08/07 MH 1.17 /2019 [facility] HEMATOLOGY PTT 30.3 22.9 - 08/07 MH 35.8 [facility] HEMATOLOGY RBC Morph Normal Normal 08/07 MH (08/08/19 2:27 PM) [facility] HEMATOLOGY Plt Morph Normal Normal 08/07 MH (08/08/19 2:27 PM) [facility] HEMATOLOGY Basophils 0.3 0.0 - 1.0 08/07 [facility] HEMATOLOGY Basophils # 0.1 0.0 - 0.2 08/07 [facility] CHEM PANEL Glucose Lvl 96 70 - 99 07/23 [facility] CHEM PANEL BUN 16 7 - 22 07/23 [facility] CHEM PANEL Creatinine 0.54 0.50 - 07/23 MH Lvl 1.40 [facility] CHEM PANEL Sodium Lvl 140 135 - 145 07/23 [facility] CHEM PANEL Potassium 4.0 3.5 - 5.1 07/23 MH Lvl [facility] CHEM PANEL Chloride Lvl 102 95 - 109 07/23 [facility] CHEM PANEL CO2 35 24 - 32 07/23 [facility] CHEM PANEL Calcium Lvl 8.8 8.5 - 10.5 07/23 [facility] CHEM PANEL AGAP 7.0 10.0 - 07/23 MH 20.0 [facility] CHEM PANEL eGFR 90 07/23 Result Comment: The [facility] eGFR is calculated using the CKD-EPI formula. In most young, healthy individuals the eGFR will be >90 mL/min/1.73m2 . The eGFR declines with age. An eGFR of 60-89 may be normal in some populations, particularly the elderly, for whom the CKD-EPI formula has not been extensively validated. Use of the eGFR is not recommended in the following populations:< br/>
Bryanna viduals with unstable creatinine concentration s, including patients and those with serious co-morbid conditions.<b r/>
Patie nts with extremes in muscle mass or diet.

The data above are obtained from the National Kidney Disease Education Program (NKDEP) which additionally recommends that when the eGFR is used in patients with extremes of body mass index for purposes of drug dosing, the eGFR should be multiplied by the estimated BMI. CHEM PANEL Magnesium 2.3 1.8 - 2.4 07/23 MH Lvl /2019 [facility] HEMATOLOGY WBC 4.6 3.7 - 10.4 07/23 MH /2019 [facility] HEMATOLOGY RBC 3.25 4.20 - 07/23 MH 5.40 /2019 [facility] HEMATOLOGY Hgb 9.9 12.0 - 04 MH 16.0 /2019 [facility] HEMATOLOGY Hct 30.1 36.0 - 07/23 MH 48.0 /2019 [facility] HEMATOLOGY MCV 92.3 80.0 - 07/23 MH 98.0 /2019 [facility] HEMATOLOGY MCH 30.4 27.0 - 07/23 MH 31.0 [facility] HEMATOLOGY MCHC 33.0 32.0 - 07/23 MH 36.0 [facility] HEMATOLOGY RDW 14.4 11.5 - 07/23 MH 14.5 [facility] HEMATOLOGY Platelet 229 133 - 450 07/23 MH /2019 [facility] HEMATOLOGY MPV 8.3 7.4 - 10.4 07/23 MH /2019 [facility] HEMATOLOGY Hgb 10.2 12.0 - 07/21 MH 16.0 /2019 [facility] HEMATOLOGY Hct 30.8 36.0 - 07/21 MH 48.0 /2019 [facility] HEMATOLOGY Hgb 9.7 12.0 - 07/20 MH 16.0 /2019 [facility] HEMATOLOGY Hct 29.3 36.0 - 07/20 MH 48.0 /2019 [facility] HEMATOLOGY WBC 9.6 3.7 - 10.4 04 MH /2019 [facility] HEMATOLOGY RBC 3.28 4.20 - 04 MH 5.40 [facility] HEMATOLOGY MCV 92.3 80.0 - 07/20 MH 98.0 /2020 [facility] HEMATOLOGY MCH 30.1 27.0 - 07/20 MH 31.0 [facility] HEMATOLOGY MCHC 32.7 32.0 - 07/20 MH 36.0 [facility] HEMATOLOGY RDW 14.6 11.5 - 07/20 MH 14.5 [facility] HEMATOLOGY Platelet 192 133 - 450 07/20 MH [facility] HEMATOLOGY MPV 8.3 7.4 - 10.4 07/20 MH [facility] HEMATOLOGY Segs 85.5 45.0 - 07/20 MH 75.0 /2019 [facility] HEMATOLOGY Lymphocytes 5.2 20.0 - 04 MH 40.0 [facility] HEMATOLOGY Monocytes 9.0 2.0 - 12.0 07/20 [facility] HEMATOLOGY Eosinophils 0.2 0.0 - 4.0 07/20 MH /2019 [facility] HEMATOLOGY Basophils 0.1 0.0 - 1.0 07/20 [facility] HEMATOLOGY Neutrophils 8.2 1.5 - 8.1 07/20 MH # /2020 [facility] HEMATOLOGY Lymphocytes 0.5 1.0 - 5.5 07/20 MH # /2020 [facility] HEMATOLOGY Monocytes # 0.9 0.0 - 0.8 07/20 [facility] IMMUNOLOGY Coronavirus Not Detected Not 07/20 (COVID-19) (07/20/19 9:04 PM) Detected /2019 [place] [facility] CHEM PANEL Glucose Lvl 98 70 - 99 07/19 [facility] CHEM PANEL BUN 13 7 - 22 07/19 [facility] CHEM PANEL Creatinine 0.63 0.50 - 07/19 Lvl 1.40 [facility] CHEM PANEL Sodium Lvl 141 135 - 145 07/19 [facility] CHEM PANEL Potassium 4.6 3.5 - 5.1 07/19 Lvl /2019 [facility] CHEM PANEL Chloride Lvl 111 95 - 109 07/19 [facility] CHEM PANEL CO2 25 24 - 32 07/19 [facility] CHEM PANEL Calcium Lvl 8.6 8.5 - 10.5 07/19 [facility] CHEM PANEL AGAP 9.6 10.0 - 07/19 MH 20.0 [facility] CHEM PANEL eGFR 86 07/19 Result Comment: The [facility] eGFR is calculated using the CKD-EPI formula. In most young, healthy individuals the eGFR will be >90 mL/min/1.73m2 . The eGFR declines with age. An eGFR of 60-89 may be normal in some populations, particularly the elderly, for whom the CKD-EPI formula has not been extensively validated. Use of the eGFR is not recommended in the following populations:< br/>
Bryanna viduals with unstable creatinine concentration s, including patients and those with serious co-morbid conditions.<b r/>
Patie nts with extremes in muscle mass or diet.

The data above are obtained from the National Kidney Disease Education Program (NKDEP) which additionally recommends that when the eGFR is used in patients with extremes of body mass index for purposes of drug dosing, the eGFR should be multiplied by the estimated BMI. CHEM PANEL Magnesium 2.4 1.8 - 2.4 07/19 Lvl /2019 [facility] CHEM PANEL Phosphorus 3.8 2.5 - 4.5 07/19 [facility] HEMATOLOGY WBC 8.7 3.7 - 10.4 07/19 /2019 [facility] HEMATOLOGY RBC 3.66 4.20 - 07/19 MH 5.40 [facility] HEMATOLOGY MCV 92.4 80.0 - 07/19 MH 98.0 [facility] MCH 29.7 27.0 - 07/19 MH 31.0 [facility] MCHC 32.2 32.0 - 07/19 36.0 [facility] RDW 14.9 11.5 - 07/19 14.5 [facility] Platelet 198 133 - 450 07/19 [facility] HEMATOLOGY MPV 7.9 7.4 - 10.4 07/19 [facility] HEMATOLOGY Segs 77.8 45.0 - 07/19 75.0 [facility] Lymphocytes 9.6 20.0 - 07/19 MH 40.0 [facility] HEMATOLOGY Monocytes 7.4 2.0 - 12.0 07/19 [facility] HEMATOLOGY Eosinophils 4.8 0.0 - 4.0 07/19 [facility] HEMATOLOGY Basophils 0.4 0.0 - 1.0 07/19 [facility] HEMATOLOGY Neutrophils 6.8 1.5 - 8.1 07/19 MH # /2019 [facility] HEMATOLOGY Lymphocytes 0.8 1.0 - 5.5 07/19 # /2019 [facility] HEMATOLOGY Monocytes # 0.6 0.0 - 0.8 07/19 [facility] HEMATOLOGY Eosinophils 0.4 0.0 - 0.5 07/19 # /2019 [facility] BLOOD BANK ABO/Rh A POS 07/18 RESULTS /2019 [facility] BLOOD BANK Antibody Negative 07/18 RESULTS Scrn (07/19/19 6:52 PM) /2019 [facility] CARDIAC Troponin-I <0.02 0.00 - 07/18 ENZYMES 0.40 [facility] CHEM PANEL Glucose Lvl 101 70 - 99 07/18 [facility] CHEM PANEL BUN 17 7 - 22 07/18 [facility] CHEM PANEL Creatinine 0.64 0.50 - 07/18 MH Lvl 1.40 [facility] CHEM PANEL Sodium Lvl 140 135 - 145 07/18 [facility] CHEM PANEL Potassium 4.0 3.5 - 5.1 07/18 MH Lvl /2019 [facility] CHEM PANEL Chloride Lvl 110 95 - 109 07/18 [facility] CHEM PANEL CO2 26 24 - 32 07/18 [facility] CHEM PANEL Calcium Lvl 8.5 8.5 - 10.5 07/18 [facility] CHEM PANEL AGAP 8.0 10.0 - 07/18 MH 20.0 [facility] CHEM PANEL eGFR 85 07/18 Result Comment: The [facility] eGFR is calculated using the CKD-EPI formula. In most young, healthy individuals the eGFR will be >90 mL/min/1.73m2 . The eGFR declines with age. An eGFR of 60-89 may be normal in some populations, particularly the elderly, for whom the CKD-EPI formula has not been extensively validated. Use of the eGFR is not recommended in the following populations:< br/>
Bryanna viduals with unstable creatinine concentration s, including patients and those with serious co-morbid conditions.<b r/>
Patie nts with extremes in muscle mass or diet.

The data above are obtained from the National Kidney Disease Education Program (NKDEP) which additionally recommends that when the eGFR is used in patients with extremes of body mass index for purposes of drug dosing, the eGFR should be multiplied by the estimated BMI. HEMATOLOGY PT 12.5 12.0 - 07/18 MH 14.7 [facility] HEMATOLOGY INR 0.93 0.85 - 07/18 MH 1.17 [facility] HEMATOLOGY Segs 86.0 45.0 - 07/18 MH 75.0 [facility] HEMATOLOGY Lymphocytes 6.5 20.0 - 07/18 MH 40.0 [facility] HEMATOLOGY Monocytes 6.2 2.0 - 12.0 07/18 [facility] HEMATOLOGY Eosinophils 1.0 0.0 - 4.0 04 [facility] HEMATOLOGY Basophils 0.3 0.0 - 1.0 07/18 [facility] HEMATOLOGY Neutrophils 10.6 1.5 - 8.1 07/18 MH # [facility] HEMATOLOGY Lymphocytes 0.8 1.0 - 5.5 07/18 # /2019 [facility] HEMATOLOGY Monocytes # 0.8 0.0 - 0.8 07/18 [facility] HEMATOLOGY Eosinophils 0.1 0.0 - 0.5 07/18 # [facility] URINE AND UA Turbidity Clear Clear 07/18 STOOL (07/19/19 6:52 PM) [facility] URINE AND UA Spec Grav 1.012 <=1.030 07/18 STOOL [facility] URINE AND UA pH 6.0 5.0 - 8.0 07/18 STOOL [facility] URINE AND UA Protein Negative Negative 07/18 STOOL mg/dL mg/dL [facility] URINE AND UA Glucose Negative Negative 07/18 STOOL mg/dL mg/dL [facility] URINE AND UA Ketones Negative Negative 07/18 STOOL mg/dL mg/dL [facility] URINE AND UA Bili Negative Negative 07/18 STOOL *NA* /2019 [facility] (07/19/19 6:52 PM) URINE AND UA Blood Negative Negative 07/18 STOOL (07/19/19 6:52 PM) [facility] URINE AND UA Nitrite Negative Negative 07/18 STOOL (07/19/19 6:52 PM) [facility] URINE AND UA Leuk Est Negative Negative 07/18 STOOL (07/19/19 6:52 PM) [facility] URINE AND UA WBC 4 0 - 5 07/18 [facility] URINE AND UA RBC 1 0 - 2 07/18 [facility] URINE AND UA Sq Epi None Seen 07/18 [facility] URINE AND UA Color Ltyellow 07/18 [facility] URINE AND UA <=1.0 0.1 - 1.0 07/18 [facility] Urobilinogen mg/dL [facility] Pathology Reports No Data Provided for This Section Diagnostic Reports Report Value Date Source Chest w contrast CT Radiation Dose CTDIVOL = 0 (mGy): DLP = 220 (mGy-cm) 08/18/2019 [facility] PROCEDURE INFORMATION: Exam: CT Chest With Contrast Exam date and time: 08/18/2019 3:02 PM Age: 79 years old Clinical indication: Encounter for follow-up exa mination after completed treatment for malignant neoplasm; Additional inf o: /c34.21, z08 TECHNIQUE: Imaging protocol: Computed tomography of the [facility] [facility] with intravenous contrast. Radiation optimization: All CT scans at this facility use at least one of these dose optimization techniques: automated exposure control; mA and/or kV adjustment per patient size (includes targeted e xams where dose is matched to clinical indication); or iterative reconstructio n. Contrast material: OMNI; Contrast volume: 100 ml ; Contrast route: IV; COMPARISON: CHEST WO CONTRAST CT 08/09/2019 9:31 AM RADIATION DOSE METRICS: Total DLP: 220 mGy-cm FINDINGS: Lungs: Severe emphysema with interstitial scarri ng. Dense consolidation posterior segment right upper lobe with progressive cavitation, largest cavity now measuring 4.8 cm in transverse dimension. Po sterior segment right upper lobe more consolidated. Diffuse low-attenuation about the non aerated portion of the lesion suggesting nec rosis. Right lower lobe atelectasis adjacent to the pleural effusion. No definite central mass. Pleural space: Development of small right pleura l effusion. Heart: Moderate coronary artery calcifications. No pericardial effusion. Mediastinum: Upper abdominal images remarkable f or small hiatal hernia. Aorta: Moderate aortic atherosclerosis. Lymph nodes: Unchanged prominent pretracheal lym ph node. No hilar adenopathy. Bones/joints: Osteopenia, spondylosis an d kyphosis with persistent midthoracic vertebral compression fractures, stabilized post vertebroplasty. Stable depression superior endplate L2. Soft tissues: Unremarkable. IMPRESSION: 1. Progressive cavitation of consolidated lesion in the posterior segment of the right upper lobe as described. 2. Severe emphysema with scarring. 3. Development of small right pleural effusion l ower lobe atelectasis. 4. Atherosclerosis with moderate coronary artery calcifications. 5. Small hiatal hernia. Jose David Mcelroy MD On 08/20/2019 14:02:07; VR- [id number] Chest wo contrast CT Radiation Dose CTDIVOL = 0 (mGy): DLP = 345.87 (mGy-cm) 08/09/2019 [facility] PROCEDURE INFORMATION: Exam: CT Chest Without Contrast Exam date and time: 08/09/2019 9:31 AM Age: 79 years old Clinical indication: Shortness of breath; Additi onal info: Chest tightness/pneumonia () TECHNIQUE: Imaging protocol: Computed tomography of the [facility] without contrast. Radiation optimization: All CT scans at this facility use at least one of these dose optimization techniques: automated exposure control; mA and/or kV adjustment per patient size (includes targeted e xams where dose is matched to clinical indication); or iterative reconstructio n. COMPARISON: CHEST WO CONTRAST CT 07/19/2019 8:06 PM RADIATION DOSE METRICS: Total DLP: 345.87 mGy-cm FINDINGS: Lungs: There are severe emphysematous changes wi thin the lungs. There are new consolidative changes with cavitation in the rig ht middle lobe. There is a small air-fluid level within a larger cavitary area. Unchanged nodular scarring in the right lower lobe (3, 157). Recommend six- month follow-up. Pleural base nodule along the major fissure may represent an intrapulmonary lymph node. Pleural space: No pneumothorax. No pleural effus ion. Heart: There are coronary artery calcifications. Aorta: Atheromatous changes are present in the a jean paul. Lymph nodes: A right paratracheal lymph node brooke sures 12 mm short axis , unchanged from prior. Evaluation of hilar adenop athy is limited without contrast. Bones/joints: The bones are demineralized. There are multilevel compression deformities. There are posttreatment changes of cement augmentation at the midthoracic spine. Unchanged appearance of the spine compared to previous exam. Soft tissues: Unremarkable. IMPRESSION: 1. Cavitary right middle lobe pneumonia has deve loped in the interval since prior CT exam dated 07/19/2019 2. Otherwise no significant change from prior. T here are severe emphysematous changes and there is nodular scarring at the rig ht lung base. Recommend follow-up in 3-6 months. 3. Demineralization of the bones with multilevel compression deformities 2 of which have been treated previously with cement a ugmentation. Bhumi Palmer MD On 08/09/2019 10:16:31; VR- [id number] Chest 1view DX PROCEDURE INFORMATION: 08/08/2019 [facility] Exam: XR Chest, 1 View Exam date and time: 08/08/2019 1:46 PM Age: 79 years old Clinical indication: /undifferentiated sepsis TECHNIQUE: Imaging protocol: XR of the chest Views: 1 view. COMPARISON: CHEST 1VIEW DX 07/19/2019 5:48 PM FINDINGS: Lungs: Interstitial opacitie s within the right lower lobe. Correlate clinically for pneumonitis. Pleural space: Unremarkable. No pleural effusion . No pneumothorax. Heart/Mediastinum: Heart size is within normal l imits. Vasculature is unremarkable. Bones/joints: Bones are oste openic. Prior vertebral augmentation with cement in the mid dorsal spine. IMPRESSION: Right lower lobe infiltrate. Conside r pneumonia clinically. Rei tSein MD On 08/08/2019 14:15:01; VR [id number] Pelvis AP DX PROCEDURE INFORMATION: 07/20/2019 [facility] Exam: XR Pelvis Exam date and time: 07/20/2019 4:04 PM Age: 79 years old Clinical indication: Injury or trauma; Injury hi story: S/P hip cuauhtemoc arthroplasty; Additional info: /s/p hip cuauhtemoc art hroplasty TECHNIQUE: Imaging protocol: XR pelvis. Views: 1 or 2 view. COMPARISON: PELVIS AP DX 07/20/2019 12:11 PM FINDINGS: Bones/joints: Postsurgical changes are present r elating to left hip hemiarthroplasty. Hardware appears intact and we ll-positioned. No acute fracture identified. Soft tissues: Soft tissue swelling and scattered foci of soft tissue gas present around the left hip. Skin elio are in place. IMPRESSION: Expected postsurgical changes related to left hi p hemiarthroplasty without evidence of acute complication. Mauricio Del Valle MD On 07/20/2019 17:13:13; RADHACOPI [id number] Pelvis AP DX PROCEDURE INFORMATION: 07/20/2019 [facility] Exam: XR Pelvis Exam date and time: 07/20/2019 12:11 PM Age: 79 years old Clinical indication: Lt hip pain/lt hip hemirathroplasty/x-table pelvis in or1 TECHNIQUE: Imaging protocol: XR pelvis. Views: 1 or 2 view. COMPARISON: HIP 2-3 VIEWS UNI DX, LEFT 07/19/2019 5:52 PM FINDINGS: Intraoperative evaluation f or placement of a left hip prosthesis. Femoral head is been resected in the femoral spacer device truong s been placed. IMPRESSION: Left hip replacement Ben Archer MD On 07/20/2019 12:54:04; [id number] Chest wo contrast CT Radiation Dose CTDIVOL = 0 (mGy): DLP = 350.84 (mGy-cm) 07/19/2019 [facility] PROCEDURE INFORMATION: Exam: CT Chest Without Contrast Exam date and time: 07/19/2019 8:06 PM Age: 79 years old Clinical indication: Patient HX: Slip and fall f rom standing; C/O L hip pain; No head strike, no blood thinners; 150 fentanyl given en route; Pmh hypothyroid; Additional info: /hx of lung CA, hi p FX now. For preop reasons TECHNIQUE: Imaging protocol: Computed tomography of the [facility] without contrast. Total DLP: 350.84 mGy-cm Radiation optimization: All CT scans at this facility use at least one of these dose optimization techniques: automated exposure control; mA and/or kV adjustment per patient size (includes targeted e xams where dose is matched to clinical indication); or iterative reconstructio n. COMPARISON: CHEST 1VIEW DX 07/19/2019 5:48 PM FINDINGS: Lungs: Interstitium shows nonspecific thickening . Right lower lobe shows nonspecific linear opacities which may represent linear atelectasis or scarring. No consolidation. No masses. Pleural space: Unremarkable. No pneumothorax. No pleural effusion. Heart: Coronary arteries contain atherosclerotic calcifications. No cardiomegaly. No pericardial effusion. Aorta: Thoracic aorta contains atherosclerotic c alcifications. No aortic aneurysm. Lymph nodes: Mediastinal lymph nodes show up to 10 mm short axis diameter in the precarinal region. Bones/joints: T7 and T8 vertebral bodies show ky phoplasty cement material. No acute fracture. Soft tissues: Unremarkable. IMPRESSION: No acute findings. Nonspecific interstitial thickening. Ple ase correlate clinically for pulmonary edema. Lizandro Walton MD On 07/19/2019 20:37:39; [id number] Hip wo contrast CT Radiation Dose CTDIVOL = 0 (mGy): DLP = 795.69 (mGy-cm) 07/19/2019 [facility] PROCEDURE INFORMATION: Exam: CT Left Lower Extremity Without Contrast, Hip Exam date and time: 07/19/2019 8:06 PM Age: 79 years old Clinical indication: Patient HX: Slip and fall f rom standing; C/O L hip pain; No head strike, no blood thinners; 150 fentanyl given en route; Pmh hypothyroid; Additional info: /fall, HX of cance r TECHNIQUE: Imaging protocol: CT of the Left lower extremity without contrast was performed. Exam focused on the hip. Total DLP: 795.69 mGy-cm Radiation optimization: All CT scans at this facility use at least one of these dose optimization techniques: automated exposure control; mA and/or kV adjustment per patient size (includes targeted e xams where dose is matched to clinical indication); or iterative reconstructio n. COMPARISON: HIP 2-3 VIEWS UNI DX, LEFT 07/19/2019 5:52 PM FINDINGS: Bones/joints: Osteopenia. Acute, traumatic, impa cted fracture of the left femoral neck. Superiorly and laterally, the frac ture occurs in the subcapital region. Inferiorly and medially, the fra cture is seen within the transcervical region. Mild degenerative change of the left hip . Left hip joint effusion. Degenerative changes in the lumbar spine. Soft tissues: Soft tissue swelling around the fr acture. Vasculature: Atherosclerotic calcifications. Bowel: Diverticulosis is seen within the colon w ithout evidence of diverticulitis. No evidence of bowel obstruction is identified. Reproductive: The uterus is not visualized. IMPRESSION: Mildly impacted fracture of the left femoral nec kIon Nicole MD On 07/19/2019 20:26:03; VR-SWON [id number] Hip 2/3 views uni w PROCEDURE INFORMATION: 07/19/2019 [place] [facility] pelvis DX Exam: XR Left Hip with Pelvis when Performed Exam date and time: 07/19/2019 5:52 PM Age: 79 years old Clinical indication: Pain and injury or trauma; Fall; Hip pain; Left hip; Additional info: /fall TECHNIQUE: Imaging protocol: XR Left hip with pelvis when p erformed. Views: 2 or 3 views. AP 1 view pelvis with 2 vie ws hip COMPARISON: No relevant prior studies available. FINDINGS: Bones/joints: Mildly displaced subcapital fractu re of the left femoral neck. Diffuse osteopenia. Soft tissues: There are no radio-opaque foreign bodies. Notes: If there is further concern, jonatan mmend follow-up radiographs or MRI for complete assessment. IMPRESSION: Mildly displaced subcapital fracture of the left femoral neck. Praveena West MD On 07/19/2019 18:23:37; VR-BMUS [id number] Chest 1view DX PROCEDURE INFORMATION: 07/19/2019 RHONA lopez Exam: XR Chest, 1 View Exam date and time: 07/19/2019 5:48 PM Age: 79 years old Clinical indication: Pain and injury or trauma; Fall; Chest pain; Additional info: /fall TECHNIQUE: Imaging protocol: XR of the chest Views: 1 view. COMPARISON: No relevant prior studies available. FINDINGS: Lungs: Normal lung volumes. No consolidation. Pleural space: No pleural effusion. No pneumoth orax. Heart/Mediastinum: Heart size is within normal l imits. Bones/joints: Unremarkable. IMPRESSION: No acute cardiopulmonary findings. Praveena West MD On 07/19/2019 18:22:29; VR-BMUS [id number] Consultation Notes No Data Provided for This Section Discharge Summaries No Data Provided for This Section History and Physicals No Data Provided for This Section Vital Signs Vital Sign Value Date Comments Source Systolic (mm Hg) 121 08/30/2019 [facility] Diastolic (mm Hg) 47 08/30/[address] [address] Heart Rate 97 08/30/2019 [facility] Rate 20 08/30/2019 [facility] Weight 52.273 08/30/2019 [facility] Temperature Oral (F) 97.8 F 08/11/2019 [facility] Rate 103 08/11/2019 [facility] Rate 18 08/11/2019 [facility] Systolic (mm Hg) 120 08/11/2019 [facility] Diastolic (mm Hg) 52 08/11/[address] [facility] [address] Temperature Oral (F) 98 F 08/11/2019 [facility] Rate 103 08/11/2019 [facility] Systolic (mm Hg) 126 08/11/2019 [facility] Diastolic (mm Hg) 57 08/11/[address] [facility] [address] Temperature Oral (F) 97.6 F 08/11/2019 [facility] Rate 95 08/11/2019 [facility] Rate 16 08/11/2019 [facility] Systolic (mm Hg) 111 08/11/2019 [facility] Diastolic (mm Hg) 50 08/11/[address] Respitory Rate 16 08/11/2019 [facility] Height 165.1 cm 08/08/2019 [facility] BMI Calculated 20.01 08/08/2019 [facility] Weight 54.545 08/08/2019 [facility] Temperature Oral (F) 97.9 F 07/24/2019 [facility] Rate 90 07/24/2019 [facility] Rate 16 07/24/2019 [facility] Systolic (mm Hg) 135 07/24/2019 [facility] Diastolic (mm Hg) 60 07/24/[address] Temperature Oral (F) 98.2 F 07/24/2019 [facility] Rate 94 07/24/2019 [facility] Rate 16 07/24/2019 [facility] Systolic (mm Hg) 152 07/24/2019 [facility] Diastolic (mm Hg) 72 07/24/[address] [facility] [address] Respitory Rate 16 07/24/2019 [facility] Temperature Oral (F) 97.6 F 07/24/2019 [facility] Rate 80 07/24/2019 [facility] Systolic (mm Hg) 140 07/24/2019 [facility] Diastolic (mm Hg) 61 07/24/[address] [facility] [address] Height 167.64 cm 07/19/2019 [facility] BMI Calculated 19.41 07/19/2019 [facility] Weight 54.545 07/19/2019 [facility] Systolic (mm Hg) 131 04/07/2019 [facility] Diastolic (mm Hg) 67 04/07/[address] [facility] [address] Heart Rate 88 04/07/2019 [facility] Rate 16 04/07/2019 [facility] Height 167.64 cm 04/07/2019 [facility] Weight 54.602 04/07/2019 [facility] BMI Calculated 19.43 04/07/2019 [facility] Encounters Location Location Encounter Encounter Reason Attending ADM DC Stat us Source Details Type Number For Provider Date Date [facility] [id number] Atul 04/07 04/08 [facility]2019 [facility] [id number] Atul 04/12 05/12 [facility] [id number] Kaylie 07/18 07/23 [facility] Mary /2019 [facility] [id number] [facility] [id number] Atul 08/17 08/18 [facility] Prather [facility] [id number] Irfan 08/29 08/30 [facility] Jawed /2019 [facility] Procedures No Data Provided for This Section Assessment and Plan Assessment and Plan Date Source Extracted from:Title: Clinical Document 08/11/2019 [facility] Author: Jose Avila MD Date: 08/11/19 Discharge Summary Name: Hood Hernandez Record Number: [id number] Admission Date: 08/08/2019 Discharge Date 5: Copies to: Diagnoses: Hospital-acquired pneumonia Cavitary pneumonia History of COPD Lung cancer History of recent hip fracture Severe weakness Cachexia Hypertension Hyperlipidemia Procedures: Chief Complaint change in mental status HPI: See the HPI PMH: See the HPI Hospital course: 79-year-old female was at home she was very much weak and her white count was very high. She was admitted with hospital-acquired pneumonia. Patient had a cavitary lung lesion. The tracie bernardojuliana was seen by the infectious disease and the pulmonary. Patient responded well to the IV antibiotic. Patient has MRSA positive in the nose. Responded well to the antibiotic. Right now she is kanika rt awake oriented x3. No pain no nausea no vomiting. Mild coughing otherwise she is feeling fine. Discussed with the infectious disease they think patient can go home with p.o. antibiotic. Discharge condition: Stable Recent signficant physical findings: Vitals are stable Recent significant lab and radiology results: Labs (Last four charted values) WBC H 12.6 (JULY 27) H 14.9 (AUGUST 09) H 17.1 (AUGUST 08) H 16.6 (AUGUST 07) Hgb L 8.7 (AUGUST 10 ) L 8.6 (AUGUST 09) L 10.6 (AUGUST 08) L 9.2 (AUGUST 07) Hct L 26.0 (JULY 27) L 26.8 (AUGUST 09) L 33.2 (AUGUST 08) L 28.3 (AUGUST 07) Plt 254 (AUGUST 10) 222 (AUGUST 09) 259 (AUGUST 08) 281 (AUGUST 07) Na 135 (AUGUST 09) 135 (AUGUST 08) L 134 (AUGUST 07) K 4.6 (AUGUST 09) 4.7 (AUGUST 08) 4.1 (AUGUST 07) CO2 27 (AUGUST 09) 26 (AUGUST 08) L 14 (AUGUST 07) Cl 103 (AUGUST 09) 101 (AUGUST 08) 104 (AUGUST 07) Cr 0.59 (AUGUST 09) 0.71 (AUGUST 08) L <0.15 (AUGUST 07) BUN H 29 (AUGUST 09) H 31 (AUGUST 08) 13 (AUGUST 07) Glucose Random H 127 () H 137 (AUGUST 08) C 49 (AUGUST 07) Ca 9.0 (AUGUST 09) 9.9 (AUGUST 08) C 6.8 (AUGUST 07) PT H 14.9 (AUGUST 07) INR 1.16 (AUGUST 07) PTT 30.3 (AUGUST 07) Troponin 0.02 (AUGUST 07) Total CK 17 (AUGUST 07) Discharge therapy: Medications continue home medication We will add Zyvox 600 p.o. twice daily f or 7 days and Ceftin 500 p.o. twice daily for 7 days Diet heart healthy diet Activity as tolerated Follow up with me in a week Extracted from:Title: Cardiology Progress Note 07/24/2019 [facility] Author: Harjinder Mcintyre MD Date: 07/24/19 Impression and Plan Cardiac preop L femur fracture now s/p L hemiarthroplasty on 07/20/19 COPD Lung cancer Hypothyroidism - From cardiology standpoint, given pt's age and comorbidities, she is at moderate risk for surgery, risk level is justified and acceptable - Now s/p L hemiarthroplasty on 07/20/19 - S/p surgery w/o complications - Hgb stable - Consider statin for CV risk reduction - On LT4 - F/u with cardiology for further risk stratification as out pt Thank you. Cardiology will follow. Extracted from:Title: Consult Note Author: Savannah Galloway MD Date: 07/20/19 1 day old closed left hip femur neck fracture plan: Recommend surgery left cuauhtemoc hip arthroplasty Risks and benefits were reviewed with tracie soares. Potential complications were discussed that include but not limited to infection, wound complication, injury to nerve, anesthesia complication, dislocation of hip, painful gait. Consent was obtained. Femoral neck fracture(S72.009A) Extracted from:Title: History and Physical Author: Rose Dudley MD Date: 07/19/19 79-year-old female with history of COPDo n 5 L home O2,lung cancer status post recent radiation completed in May, former tobacco abusewho presented to the EDfollowing a fall onto her left hip. Left femoral neck fracture - npo after midnight for possible surgical intervention, per orthopedics -We will consult cardiology for preoperative clearance -will start multimodal pain control COPD Chronic hypoxic respiratory failure - stable on 4-5 L home O2 - currently no sign of exacerbation - duonebs prn Lung cancer - s/p recent radiation - CT chest pending, will f/u results SCDs anticipate 2-3 midnights Plan of Care No Data Provided for This Section Social History Social History Date Source Social History TypeResponse 08/09/2019 [facility] Alcohol Never Employment/School Status: Retired. Substance Abuse Use: None. Smoking Status Former smoker; Exposure to Tobacco Smoke None; Cigarette Smoking Last 365 Days No; Reg Smoking Cessation Counseling Yes entered on: 08/30/19 Family History No Data Provided for This Section Advance Directives No Data Provided for This Section Functional Status No Data Provided for This Section
--- OUTSIDE RECORDS SUMMARY | 2019-09-21 18:11 | XMS REPORT | Continuity of Care Document ---
:1940 Author Organization [facility] t Address [address] [place] [address] Care Team Providers Name Role Phone AMARILIS IRENE Primary Care Physician Rey Prather Attending Clinician Tarah Avila Attending Clinician Mary Attending Clinician AMARILIS Attending Clinician Unavailable Tarah Avila Admitting Clinician Mayr Admitting Clinician AMARILIS Admitting Clinician Unavailable Payers Payer Name Policy Type Policy Number Effective Date Expiration Date S [facility] Medicare A & B [id number] 2005 [facility] 00[facility] Problems Condition Condition Condition Status Onset Resolution Last Treating Co mments Source Name Details Category Date Date Treatment Clinician Date F/U Diagnosis Active 2019-08-30 Mem oria ADENOCARCI 08-27 10:32:00 l NOMA OF F/U 00:00: Talha THE 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 [facility] PNEUMONIA, Diagnosis Active 2019-08-18 [facility] SEPSIS 08-07 21:57:00 l 00:00: [place] PNEUMONIA, 00 SEPSIS Active 08/08/2019 [facility] SEPSIS Diagnosis Active 2019-08-08 [facility] oria 08-07 13:58:00 l SEPSIS 00:00: [place] 00 Active 08/08/2019 [facility] C34.31 = Diagnosis Active 2019-08-18 M emoria MALIGNANT 07-24 14:06:00 l NEOPLASM C34.31 = 00:00: Herm nancy OF LOWER MALIGNANT 00 LOB NEOPLASM OF LOWER LOB Active 07/25/2019 [facility] FEMORAL Diagnosis Active 2019-07-27 Az moria NECK 07-18 21:47:00 l FRACTURE FEMORAL 00:00: Zara nn NECK 00 FRACTURE Active 07/19/2019 [facility] FALL Diagnosis Active 2019-07-19 [facility] oria 07-18 18:57:00 l FALL 00:00: Talha 00 Active 07/19/2019 [facility] ADENOCARCI Diagnosis Active 2019-04-25 [facility] NOMA OF 04-10 13:41:00 l THE RIGHT 00:00: Talha LUNG ADENOCARCI 00 NOMA OF THE RIGHT LUNG Active 04/10/2019 [facility] RIGHT LUNG Diagnosis Active 2019-04-07 [facility] CANCER 1-03 12:55:00 l CONSULT RIGHT 00:00: Talha LUNG 00 CANCER CONSULT Active 03/31/2019 [facility] Pneumonia Pneumonia Problem Active [facility] Disease of Problem Active 2019-09-01 M emoria thyroid 22:48:44 l gland Disease [place] (disorder) of thyroid gland (disorder) Active Problem 09/01/2019 [facility] MALIGNANT Diagnosis Active 2019-08-30 Memoria NEOPLASM 10:32:00 l OF LOWER Talha LOBE, MALIGNANT RIGHT NEOPLASM OF LOWER LOBE, RIGHT Active [facility] FRACTURE Diagnosis Active 2019-07-27 M emoria OF UNSP 21:47:00 l PART OF FRACTURE Zara nn NECK OF OF UNSP UNSP FE PART OF NECK OF UNSP FE Active [facility] PNEUMONIA, Diagnosis Active 2019-08-18 Memoria UNSPECIFIE 21:57:00 l D ORGANISM Mike n PNEUMONIA, UNSPECIFIE D ORGANISM Active [facility] SEPSIS, Diagnosis Active 2019-08-18 Me moria UNSPECIFIE 21:57:00 l D ORGANISM SEPSIS, Her ling UNSPECIFIE D ORGANISM Active [facility] Allergies, Adverse Reactions, Alerts Allergy Allergy Status Severity Reaction(s) Onset Inactive Treating Comm ents Source Name Type Date Date Clinician midazola DA Active MO 2019- [facility] m 2-05 [place] 00:00: e 00 [facility] [place] Procaine DA Active U 2019-0 [facility] HCl 8 [place] 00:00: e 00 [facility] [place] Haloperi DA Active U 2019-0 [facility] dol 8- [facility] Lactate 00:00: e 00 [facility] [place] Penicill DA Active U 2019-0 [facility] ins 11-21 [facility] 00:00: e 00 [facility] Beef FA Active U 2019-0 [facility] Containi 11-21 [facility] ng 00:00: e Products 00 [facility] codeine DA Active U 2019-0 [facility] 8-26 [place] 00:00: e 00 [facility] [place] mesalami DA Active U 2019-0 [facility] ne 8- [facility] 00:00: e 00 [facility] [place] diethylt DA Active U 2019-0 [facility] oluamide 11-21 [facility] 00:00: e 00 [facility] [place] tetanus DA Active U 2019-0 [facility] immune 8 [place] globulin 00:00: e 00 [facility] [place] celery FA Active SV 2019-0 [facility] 8-26 [place] 00:00: e 00 [facility] [place] Morphine Allergy Active 2017-[address] [facility] e 00 s [facility] [place] Procaine Allergy Active [facility] 5[facility]: Patient e 00 s [facility] [place] Penicill Allergy Active 2011- [facility]: Patient e 00 s [facility] [place] Procaine DA Active U 2010-0 [facility] HCl 2-18 [place] 00:[facility]: e 00 [facility] Haloperi DA Active U [facility] dol 2-18 [place] Lactate 00:00: e 00 [facility] Penicill DA Active U [facility] ins 2-18 [place] 00:00: e 00 [facility] Beef FA Active U [facility] Containi 2-18 [place] ng 00:00: e Products 00 [facility] Center codeine DA Active U 2010- [facility] 2-18 [place] 00:00: e 00 [facility] mesalami DA Active U [facility] ne 2-18 [place] 00:00: e 00 [facility] diethylt DA Active U [facility] oluamide 2-18 [place] 00:00: e 00 [facility] tetanus DA Active U 2010- [facility] immune 2-18 [place] globulin 00:00: e 00 [facility] Center celery FA Active SV 2010- [facility] 2-18 [place] 00:00: e 00 [facility] BLACK DA Active U [facility] PEPPER 2-18 [place] 00:00: e 00 [facility] PAINT DA Active U 2009- [facility] 3-30 [place] 00:00: e 00 [facility] TREES DA Active U 2009- [facility] 3-30 [place] 00:00: e 00 [facility] PEAS DA Active U 2008- [facility] 2-05 [place] 00:00: e 00 [facility] Center codeine codeine Active Memoria l [place] penicill penicill Active Memori a in in l [place] tetanus tetanus Active [facility] toxoid toxoid l [place] Social History Social Habit Start Date Stop Date Quantity Comments Source Social History 2019-08-09 2019-08-09 [facility] viet 04:53:14 04:53:14 Medications Ordered Filled Start Stop Current Ordering Indication Dosage Frequency Signature Comments Components Source Medication Medication Date Date Medication? Clinician (SIG) Name Name Symbicort 2019- Yes 2 puff, Memor ia 80/4.5 6-03 INHALATION l inhalation 16:43: , BID, 0 Her ling aerosol 00 Refill(s) with adapter tramadol 0 Yes 50 mg = 1 Ravindra shankar hydrochlori 5-15 tab, PO, l de 50 MG 18:11: Q4H, PRN Zara nn Oral Tablet 00 Pain, X 10 day, # 60 tab, 0 Refill(s) Cefuroxime Yes 500 mg = 1 M emoria 500 MG Oral 5-15 tab, PO, l Tablet 18:09: BID, X 7 [place] [Ceftin] 00 day, # 14 tab, 0 Refill(s), Pharmacy: [facility] [id number] linezolid 2020-0 Yes 600 mg = 1 Me moria 600 MG Oral 5-15 tab, PO, l Tablet 18:09: Q12H, X 7 Mike n [Zyvox] 00 day, # 14 tab, 0 Refill(s), Pharmacy: [facility] vancomycin 2019-0 No 2000 mg: Me moria + Sodium 5-15 infuse l Chloride 01:00: over 2.5 Zara nn 0.9% IV 250 00 hours For mL adult patients only: Round to nearest 250 mg per Medical Staff approval MEDICATION WASTE Product Size: 1000 mg Product Wasted: ___ mg Attn:KARRI-V 2019-0 No Attn:KARRI- Sera ancomycin 5-15 Vancomycin l trough 00:00: trough [place] reminder 00 reminder 08/10/19 @ 08/10/19 @ 19:30 19:30 *, Attn:KARRI, Drug form: MISC, Route: MISC, ONCE, 08/10/19 19:00:00 CDT, Stop date: 08/10/19 19:00:00 CDT, 0 Mupirocin 2019-0 No 1 appl, Memor ia 5-14 Route: l 02:00: NASAL, [place] 00 Q12H, Drug form: OINT, Start date: 08/09/19 21:00:00 CDT, Duration: 5 day, Stop date: 08/14/19 9:00:00 CDT, MRSA Decoloniza tion, 0 vancomycin 2019-0 No 2000 mg: Me moria + Sodium 5-13 infuse l Chloride 22:00: over 2.5 Zara nn 0.9% IV 250 00 hours For mL adult patients only: Round to nearest 250 mg per Medical Staff approval MEDICATION WASTE Product Size: 1000 mg Product Wasted: ___ mg Vancomycin 2020-0 No Vancomycin M [facility] 08-08 Pharmacy l Dosing 16:00: Dosing Talha Protocol - 00 Protocol - BRENARDA BERNARDA, Reminder, Drug form: MISC, Route: MISC, ONCALL, 08/09/19 11:00:00 CDT, Stop date: 08/14/19 23:59:00 CDT, 0 Naproxen 2020-0 No 500 mg, 1 Ravindra shankar 5-13 tab, l 14:53: Route: PO, [place] 00 Drug form: TAB, BID, Dosing Weight 54.545, kg, PRN Pain Score 4-6, Start date: 08/09/19 9:53:00 CDT, Duration: 30 day, Stop date: 09/08/19 9:52:00 CDT, 0 cefepime 2020-0 No Notes: Memoria 5-13 (Same As: l 08:00: Maxipime) MEDICATION WASTE Product Size: 1000 mg Product Wasted: ___ mg meloxicam 2020-0 No 15 mg = 1 Mem oria 15 mg oral 5-13 tab, PO, l tablet 02:04: Daily Robitussin 2020-0 Yes 10 mL, PO, M emoria DM Sugar 5-13 Q6H, PRN l Free 02:04: Cough/Lars estion, 0 Refill(s) Acetaminoph 2020-0 Yes 650 mg = 2 Memoria en 325 MG 5-13 tab, PO, l Oral Tablet 02:04: Q4H, PRN He rmann [Tylenol] 00 Pain Vitamin C 2020-0 Yes 500 mg = 1 Me moria 500 mg oral 5-13 tab, PO, l tablet 02:04: Daily Vancomycin 2020-0 No 1 ea, Memori a 5-12 Route: l 22:00: MISC, ONCALL, Dosing Weight 54.545, kg, Start date: 08/08/19 17:00:00 CDT, Duration: 7 day, Stop date: 08/15/19 16:59:00 CDT, Pharmacy to dose, ABX Indication : Pneumonia vancomycin 2020-0 No 2001 mg: Me moria + Sodium 5-12 infuse l Chloride 22:00: over 2.5 Zara nn 0.9% IV 250 00 hours For mL adult patients only: Round to nearest 250 mg per Medical Staff approval MEDICATION WASTE Product Size: 1000 mg Product Wasted: ___ mg Tylenol 2020-0 No Notes: Do Memor ia 5-12 not exceed l 21:15: 4 gm/day. [place] (Same as: Tylenol) D5LR 1,000 2020-0 No 1,000 mL, Me moria mL -12 Rate: 75 l 21:12: ml/hr, Infuse over: 13.3 hr, Route: IV, Dosing Weight 54.545 kg, Total Volume: 1,000, Start date: 08/08/19 16:12:00 CDT, Duration: 30 day, Stop date: 09/07/19 16:11:00 CDT, 1.59, m2, 0 Albuterol 2019-0 No Notes: Memori a 0.833 MG/ML - (Same as: l / 21:12: Duoneb) Ipratropium 00 [place] 0.167 MG/ML Inhalant Solution Acetaminoph 2019-0 No Notes: Do M emoria en -12 not exceed l 20:55: 4 gm/day. (Same as: Tylenol) methylPREDN 2019-0 No Notes: Ravindra shankar ISolone -12 (Same l SODium 20:07: as:Solu-ME Zara nn SUCCinate 00 DROL, A-Methapre d) cefepime 2019-0 No Notes: Memoria 5-12 (Same As: l 19:23: Maxipime) MEDICATION WASTE Product Size: 1000 mg Product Wasted: ___ mg Vancomycin 2019-0 No 2000 mg: Me moria 5-12 infuse l 19:00: over 2.5 hours For adult patients only: Round to nearest 250 mg per Medical Staff approval MEDICATION WASTE Product Size: 1000 mg Product Wasted: ___ mg Saline 2019-0 No Notes: Memoria Flush 0.9% - Same as: l 18:47: BD Posiflush Sterile Azithromyci 2019-0 No Notes: Ravindra shankar n -12 (Same As: l 18:47: Zithromax IV) Albuterol 2020-0 Yes 3 mL, NEB, Me moria 0.833 MG/ML 4-27 RQ6H, PRN l / 19:02: Shortness [place] Ipratropium 00 of breath, [place] 0 0.167 MG/ML Refill(s) Inhalant Solution Albuterol 2020-0 Yes NEB, RQID, Me moria 0.83 MG/ML -27 0 l Inhalant 19:02: Refill(s) Herm nancy Solution 00 bisacodyl 2020-0 Yes 10 mg = 1 Mem oria 10 mg -27 supp, TN, l rectal 19:02: Daily, PRN Zara nn suppository 00 Constipati on, 0 Refill(s) Docusate 2020-0 Yes 100 mg = 1 Mem oria Sodium 100 -27 cap, PO, l MG Oral 19:02: BID, PRN Mike n Capsule 00 as needed for constipati on, 0 Refill(s) Enoxaparin 2020-0 Yes 30 mg = Ravindra shankar -27 0.3 mL, l 19:02: SUB-Q, [place] 00 [id number], 0 Refill(s) Lidocaine 2019-0 Yes 1 patch, Ravindra shankar Hydrochlori -27 TOP, Q24H, l de 0.05 19:02: 0 [place] MG/MG 00 Refill(s) Transdermal Patch [Lidoderm] Enoxaparin 2019-0 No Notes: Memor ia 4-24 (Same as: l 07:00: Lovenox) [place] 00 remove 2020-0 No 1 patch, Memoria patch 4-24 Route: l 02:00: TOP, Talha 00 Daily, Drug form: ERFILM, Start date: 07/20/19 21:00:00 CDT, Stop date: 08/19/19 9:00:00 CDT, 0 Clindamycin 2020-0 No 900 mg, 50 Memoria 4-23 mL, Route: l 21:00: IVPB, Drug form: INJ, ABXQ8H, Dosing Weight 54.545, kg, (for patients weighing 80kg or greater), Start date: 07/20/19 16:00:00 CDT, Duration: 3 doses or times, Stop date: 07/21/19 8:00:00 CDT, ABX Indication : Surgical Prophylaxi s, 0 Sodium 2020-0 No 500 mL, Memoria Chloride - 1500 l 0.9% 18:46: ml/hr, [place] (Bolus) IV 00 Infuse Over: 20 minutes, Route: IV, 500, Drug form: INJ, ONCE, Dosing Weight 54.545 kg, Start date: 07/20/19 13:46:00 CDT, PRN Other -See Comment, 0 Hydralazine 2020-0 No 10 mg, Ravindra shankar 07-19 Route: l 18:46: IVP, Talha 00 Q20Min, Dosing Weight 54.545, kg, PRN Elevated BP, Start date: 07/20/19 13:46:00 CDT, Duration: 2 doses or times, Stop date: Limited # of times Acetaminoph 2020-0 No 1,000 mg, M emoria en 07-19 Route: PO, l 18:46: Drug form: Talha 00 TAB, ONCE, Dosing Weight 54.545, kg, PRN Pain Score 1-3, Start date: 07/20/19 13:46:00 CDT Oxycodone 2020-0 No 5 mg, Memoria Hydrochlori 07-19 Route: PO, l de 5 MG 18:46: Drug form: Herm nancy Oral Tablet 00 TAB, Q4H, Dosing Weight 54.545, kg, PRN Pain Score 4-6, Start date: 07/20/19 13:46:00 CDT, Duration: 30 day, Stop date: 08/19/19 13:45:00 CDT Morphine 2020-0 No 2 mg, Memoria 07-19 Route: l 18:46: IVP, Talha 00 Q5Min, Dosing Weight 54.545, kg, PRN Pain Score 4-6, Start date: 07/20/19 13:46:00 CDT, Duration: 5 doses or times, Stop date: Limited # of times Fentanyl 2020-0 No 25 Memoria -23 microgram, l 18:46: Route: [place] 00 IVP, Q5Min, Dosing Weight 54.545, kg, PRN Pain Score 4-6, Priority: Routine, Start date: 07/20/19 13:46:00 CDT, Duration: 4 doses or times, Stop date: Limited # of times Hydromorpho 2020-0 No 0.5 mg, Mem oria ne 4-23 Route: l 18:46: IVP, Talha 00 Q5Min, Dosing Weight 54.545, kg, PRN Pain Score 7-10, Start date: 07/20/19 13:46:00 CDT, Duration: 4 doses or times, Stop date: Limited # of times Flumazenil 2020-0 No 0.2 mg, Ravindra shankar 07-19 Route: l 18:46: IVP, PRN, [place] 00 Dosing Weight 54.545, kg, PRN Benzodiaze pine Reversal, Initial dose, Start date: 07/20/19 13:46:00 CDT, Duration: 30 day, Stop date: 08/19/19 13:45:00 CDT Naloxone 2020-0 No 0.4 mg, Memori a 07-19 Route: l 18:46: IVP, [place] 00 Q2MIN, Dosing Weight 54.545, kg, PRN Narcotic Reversal, Start date: 07/20/19 13:46:00 CDT, Duration: 8 doses or times, Stop date: Limited # of times Ephedrine 2020-0 No 5 mg, Memoria 07-19 Route: l 18:46: IVP, Talha 00 Q5Min, Dosing Weight 54.545, kg, PRN Low Blood Pressure, Start date: 07/20/19 13:46:00 CDT, Duration: 30 day, Stop date: 08/19/19 13:45:00 CDT Albuterol 2020-0 No 2.49 mg, Ravindra shankar 0.83 MG/ML 07-19 Route: l Inhalant 18:46: NEB, [place] Solution 00 Q20Min, Dosing Weight 54.545, kg, PRN Wheezing, Priority: STAT, Start date: 07/20/19 13:46:00 CDT, Duration: 30 day, Stop date: 08/19/19 13:45:00 CDT Diphenhydra 2020-0 No 12.5 mg, Me moria mine 07-19 Route: l 18:46: IVP, Drug Talha 00 form: INJ, Q6H, Dosing Weight 54.545, kg, PRN Itching, Start date: 07/20/19 13:46:00 CDT, Duration: 30 day, Stop date: 08/19/19 13:45:00 CDT Ondansetron 2019-0 No 4 mg, Memor ia - Route: l 18:46: IVP, ONCE, Dosing Weight 54.545, kg, PRN Nausea & Vomiting, Start date: 07/20/19 13:46:00 CDT glycopyrrol 2019-0 No Route: IV, Memoria ate (ANES) 4- Drug form: l 18:26: INJ, ONCE, Stop date: 07/20/19 13:26:00 CDT neostigmine 2019-0 No Route: IV, Memoria (ANES) 4- Drug form: l 18:26: INJ, ONCE, Stop date: 07/20/19 13:26:00 CDT ondansetron 2019-0 No Route: IV, Memoria (ANES) 4- Drug form: l 17:33: INJ, ONCE, Stop date: 07/20/19 12:33:00 CDT dexamethaso 2019-0 No Route: IV, Memoria ne (ANES) 4- Drug form: l 17:33: INJ, ONCE, Stop date: 07/20/19 12:33:00 CDT ePHEDrine 2019-0 No Route: IV, Me moria (ANES) 4- Drug form: l 17:03: INJ, ONCE, Stop date: 07/20/19 12:03:00 CDT ceFAZolin 2019-0 No Route: IV, Me moria (ANES) 4- Drug form: l 16:58: INJ, ONCE, Stop date: 07/20/19 11:58:00 CDT phenylephri 2019-0 No Route: IV, Memoria ne (ANES) 4- Drug form: l 16:53: INJ, ONCE, Stop date: 07/20/19 11:53:00 CDT lidocaine 2019-0 No Route: IV, Me moria (ANES) 4-23 Drug form: l 16:38: INJ, ONCE, Stop date: 07/20/19 11:38:00 CDT fentaNYL 2019-0 No Route: IV, Mem oria (ANES) 4- Drug form: l 16:38: INJ, ONCE, Stop date: 07/20/19 11:38:00 CDT propofol 2019-0 No Route: IV, Mem oria (ANES) 07-19 Drug form: l 16:38: INJ, ONCE, Stop date: 07/20/19 11:38:00 CDT rocuronium 2019-0 No Route: IV, M emoria (ANES) 07-19 Drug form: l 16:38: INJ, ONCE, Stop date: 07/20/19 11:38:00 CDT succinylcho 2019-0 No Route: IV, Memoria line (ANES) 07-19 Drug form: l 16:38: INJ, ONCE, Stop date: 07/20/19 11:38:00 CDT Calcium 2019-0 No 1,000 mL, Memor ia Chloride 07-19 Rate: 75 l 0.0014 15:55: ml/hr, MEQ/ML / 00 Infuse Potassium over: 13.3 Chloride hr, Route: 0.004 IV, Dosing MEQ/ML / Weight Sodium 54.545 kg, Chloride Total 0.103 Volume: MEQ/ML / 1,000, Sodium Start Lactate date: 0.028 07/20/19 MEQ/ML 10:55:00 Injectable CDT, Solution Duration: 30 day, Stop date: 08/19/19 10:54:00 CDT, 1.6, m2 Lactated No Route: IV, Mem oria Ringers 07-19 Total l Injection 15:51: Volume: Zara nn IV (ANES) 00 1,000, 1000 mL Start date: 07/20/19 10:51:00 CDT, Stop date: 07/20/19 11:51:00 CDT Budesonide No 2 puff, Ravindra shankar 0.16 07-19 Route: l MG/ACTUAT / 14:00: INHALATION [place] formoterol 00 , Drug fumarate Form: 0.0045 AERO/A, MG/ACTUAT Dosing Metered Weight Dose 54.545, Inhaler kg, BID, Start date: 07/20/19 9:00:00 CDT, Duration: 30 day, Stop date: 08/18/19 17:00:00 CDT celecoxib No Notes: Memori a - NSAID. l 14:00: Please Talha 00 check indication . Not for seizure. (Same As: CeleBREX) Pulmicort No Notes: Memori a Respules 07-19 (Same As: l 13:00: Pulmicort) albuterol No Notes: SEE Me moria -23 RT l 12:00: DOCUMENTAT ION (Same as: Proventil) Thyroxine No Notes: Memori a -23 Take 1 l 11:30: hour [place] 00 before or 2 hours after meal; Enteral feeds may interefere with the absorption of this medication .(Same as:Levothr oid, Synthroid) levothyroxi No 50 Memori a ne 50 mcg -23 microgram l (0.05 mg) 03:17: = 1 tab, Herm nancy oral tablet 00 PO, Daily, 0 Refill(s) Budesonide Yes 2 puff, Ravindra shankar 0.16 -23 INHALATION l MG/ACTUAT / 03:17: , BID, # 6 [place] formoterol 00 gm, 0 fumarate Refill(s) 0.0045 MG/ACTUAT Metered Dose Inhaler gabapentin No Notes: Memor ia - (Same as: l 02:00: Neurontin) Albuterol No Notes: Memori a 0.833 MG/ML 07-19 (Same as: l / 01:52: Duoneb) Ipratropium 00 [place] 0.167 MG/ML Inhalant Solution Acetaminoph No Notes: Do M emoria en 07-19 not exceed l 01:46: 4 gm/day. [place] 00 (Same as: Tylenol) Tramadol No 50 mg, 1 Memor ia -23 tab, l 01:46: Route: PO, Talha 00 Drug form: TAB, Q6H, Dosing Weight 54.545, kg, PRN Pain Score 4-6, Start date: 07/19/19 20:46:00 CDT, Duration: 5 day, Stop date: 07/24/19 20:45:00 CDT, 0 Morphine 2020-0 No Notes: Memoria 4-23 (Same l 01:46: as:MORPhin [place] 00 e Sulfate) Docusate No Notes: Memoria 07-19 (Same as: l 01:46: Colace) (Do Not Crush) Bisacodyl No Notes: Memori a 07-19 (Same As: l 01:46: Dulcolax, Bisco-Lax) tizanidine No Notes: Memor ia 07-19 (Same As: l 01:46: Zanaflex) Ondansetron No Notes: Ravindra shankar 07-19 (Same as: l 01:46: Zofran) MEDICATION WASTE Product Size: 4 mg Product Wasted: ___ mg Melatonin No Notes: Memori a 07-19 (Same as: l 01:46: Melatonin) Lidocaine No 1 patch, Ravindra shankar Hydrochlori 07-19 Route: l de 0.05 01:45: TOP, Q24H, Herm nancy MG/MG 00 Drug form: Transdermal FILM, Patch Start [Lidoderm] date: 07/19/19 20:45:00 CDT, Duration: 30 day, Stop date: 08/17/19 20:45:00 CDT, 0 NS (Bolus) No 500 mL, Ravindra shankar IV 07-18 500 ml/hr, l 23:21: Infuse Over: 1 hr, Route: IV, 500, Drug form: INJ, ONCE, Priority: STAT, Dosing Weight 54.545 kg, Start date: 07/19/19 18:21:00 CDT, Stop date: 07/19/19 18:21:00 CDT, 0 Fentanyl No Notes: Memoria 07-18 (Same as: l 23:20: Sublimaze) Preservat wyatt free. levothyroxi Yes 50 Memori a ne 50 mcg 1-10 microgram l (0.05 mg) 20:36: = 1 tab, Herm nancy oral tablet 00 PO, Daily, 0 Refill(s) celecoxib Yes 200 mg = 1 Me moria 200 mg oral 1-10 cap, PO, l capsule 20:36: BID, 0 [place] 00 Refill(s) Symbicort 2020-0 Yes 2 puff, Memor ia 160/4.5 1-10 INHALATION l inhalation 20:36: , BID, 0 Her ling aerosol 00 Refill(s) with adapter Celecoxib Celecoxib Yes [address] [facility] (Celebrex*) (Celebrex*) L ukes - 100 Mg 100 Mg Patient Capsule Capsule s [facility] Hydrocodone Hydrocodone Yes [address] [facility] Bit/Acetami Bit/Acetami Day as [facility] - nophen nophen needed for Patie nt ([place] ([place] Pain s 7.5-325 7.5-325 Medical Tablet) 1 Tablet) 1 Cente r Each Tablet Each Tablet Levofloxaci Levofloxaci Yes [address] [facility] n n [facility] - (Levaquin) (Levaquin) Pat ient 500 Mg 500 Mg s Tablet Tablet [facility] Levothyroxi Levothyroxi Yes [address] [facility] [address] ne Sodium ne Sodium [facility] - 50 Mcg 50 Mcg Patient Tablet Tablet [facility] Nicotine Nicotine Yes [address] [facility] [address] (Nicotine (Nicotine [facility] - Patch) 1 Patch) 1 Patient Each Each s Patch.dysq Patch.dysq [facility] Flonase , Flonase , 2015- No As Needed [facility] Nasal Nasal 09-26 [facility] - 00:00 Patient :00 [facility] Hydrocodone Hydrocodone 2014- No As Needed [facility] Bit/Acetami Bit/Acetami 09-26 [facility] - nophen nophen 00:00 Patient ([place] ([place] :00 s 5-325 5-325 Medical Tablet) 1 Tablet) 1 Cente r Each Each Tablet, Tablet, Tiotropium Tiotropium 2015- No Daily [facility] [place] 09-26 [facility] - (Spiriva) (Spiriva) 00:00 Jolynn ent 18 Mcg 18 Mcg :00 s Cap.w.dev, Cap.w.dev, Med [facility] Inhalation Inhalation C enter Vytorin , Vytorin , 2015- No Daily [facility] Oral Oral 09-26 [facility] - 00:00 Patient :00 [facility] Albuterol Albuterol 2014- No [facility] Sulfate Sulfate 07-18 [facility] - (Proair (Proair 00:00 Patient Hfa) 8.5 Gm Hfa) 8.5 Gm :00 s Hfa.aer.ad, Hfa.aer.ad, M [place] Aspirin Aspirin Daily [facility] (Aspirin (Aspirin 07-18 [facility] - Chew) 81 Mg Chew) 81 Mg 00:00 Patient Chew, Chew, :00 [facility] Lorazepam Lorazepam No .[address] [facility] 0.5 Mg 0.5 Mg 07-18 [facility] - Tablet, 0.5 Tablet, 0.5 00:00 Patient Mg Oral Mg Oral :00 [facility] Omeprazole Omeprazole [facility] (Prilosec) (Prilosec) 07-18 Asia kes - 40 Mg 40 Mg 00:00 Patient Capsule., Capsule., :00 [facility] Tramadol Tramadol [facility] Hcl/Acetami Hcl/Acetami 07-18 [facility] - nophen nophen 00:00 Patient (Tramadol (Tramadol :00 s Hcl-Apap Hcl-Apap Medical 37.5-325 37.5-325 Center Tab) 1 Each Tab) 1 Each Tablet, Tablet, Hydrocodone Hydrocodone [facility] Bit (Lorcet Bit (Lorcet 08-01 [facility] - 10) 1 Tab 10) 1 Tab 00:00 Jolynn ent Tab, Tab, :00 [facility] Vital Signs Vital Name Observation Time Observation Value Comments Source Systolic (mm Hg) 2019-08-30 16:42:00 [facility] [place] Diastolic (mm Hg) 2019-08-30 16:42:00 [facility] [place] Heart Rate 2019-08-30 16:42:00 [facility] Respitory Rate 2019-08-30 16:42:00 [facility] [place] Weight 2019-08-30 16:42:00 [facility] Temperature Oral (F) 2019-08-11 20:31:00 97.8 F [facility] Heart Rate 2019-08-11 20:31:00 [facility] Respitory Rate 2019-08-11 20:31:00 [facility] Systolic (mm Hg) 2019-08-11 20:31:00 [facility]ra [facility] [place] Diastolic (mm Hg) 2019-08-11 20:31:00 [facility] [place] Temperature Oral (F) 2019-08-11 16:00:00 98 F [facility] Heart Rate 2019-08-11 16:00:00 [facility] Systolic (mm Hg) 2019-08-11 16:00:00 [facility] Diastolic (mm Hg) 2019-08-11 16:00:00 [facility] Temperature Oral (F) 2019-08-11 13:00:00 97.6 F [facility] Heart Rate 2019-08-11 13:00:00 [facility] Respitory Rate 2019-08-11 13:00:00 [facility] [place] Systolic (mm Hg) 2019-08-11 13:00:00 [facility] [place] Diastolic (mm Hg) 2019-08-11 13:00:00 [facility] [place] Respitory Rate 2019-08-11 11:39:00 [facility] [place] Height 2019-08-08 18:25:00 165.1 cm [facility] BMI Calculated 2019-08-08 18:25:00 [facility] [place] Weight 2019-08-08 18:25:00 [facility] Temperature Oral (F) 2019-07-24 16:30:00 97.9 F [facility] Heart Rate 2019-07-24 16:30:00 [facility] Respitory Rate 2019-07-24 16:30:00 [facility] Systolic (mm Hg) 2019-07-24 16:30:00 Ravindra rial [facility] Diastolic (mm Hg) 2019-07-24 16:30:00 [facility] Temperature Oral (F) 2019-07-24 13:00:00 98.2 F [facility] Heart Rate 2019-07-24 13:00:00 [facility] Respitory Rate 2019-07-24 13:00:00 [facility] Systolic (mm Hg) 2019-07-24 13:00:00 Ravindra rial [place] Diastolic (mm Hg) 2019-07-24 13:00:00 [facility] Respitory Rate 2019-07-24 12:04:00 [facility] Temperature Oral (F) 2019-07-24 09:14:00 97.6 F [facility] Heart Rate 2019-07-24 09:14:00 [facility] Systolic (mm Hg) 2019-07-24 09:14:00 Ravindra rial [place] Diastolic (mm Hg) 2019-07-24 09:14:00 [facility] Height 2019-07-19 22:14:00 167.64 cm [facility] BMI Calculated 2019-07-19 22:14:00 Francesori al [facility] Weight 2019-07-19 22:14:00 [facility] Systolic (mm Hg) 2019-04-07 19:30:00 Ravindra rial [place] Diastolic (mm Hg) 2019-04-07 19:30:00 [facility] [place] Heart Rate 2019-04-07 19:30:00 [facility] Respitory Rate 2019-04-07 19:30:00 Francesori al [place] Height 2019-04-07 19:30:00 167.64 cm [facility] Weight 2019-04-07 19:30:00 [facility] BMI Calculated 2019-04-07 19:30:00 [facility] Procedures Procedure Date / Time Performed Performing Clinician [facility] e X-ray of chest, two 2017-06-03 00:00:00 RACHEL OLMOS [facility] Encounters Start End Encounter Admission Attending Care Care Encounter Source Date/Time Date/Time Type Type Clinicians Facility Department ID 2019-08-08 Inpatient E MHSE MED [id number] MH 15:09:[address] [facility] 2019-08-30 2019-08-30 Outpatient Crescencio, MHSE MHSE [id number] 10:32:00 23:59:00 Atul 53 LucasBoris 2019-08-30 2019-08-30 Outpatient MHSE MHSE [id number] MH 10:32:00 [facility] 2019-08-18 2019-08-18 Outpatient Crescencio MHSE MHSE [id number] 13:58:00 23:59:00 Atul 01 Emersonn 2019-08-18 2019-08-18 Outpatient MHSE MHSE [id number] MH 13:58:00 13:58:[facility] 2019-08-08 2019-08-11 Outpatient Margarita MHSE MHSE [id number] 13:22:37 17:52:00 Jose Maile Schroedernancy 2019-07-19 2019-07-24 Outpatient Mary, MHSE MHSE [id number] 17:13:04 18:00:00 Kaylie 00 2019-07-19 2019-07-19 Inpatient E MHSE MED [id number] MH 20:33:00 17:13:[address] 2019-04-12 2019-05-11 Outpatient DORIS Prather MHSE [id number] 12:56:00 23:59:00 Atul 00 Lucas-Boris 2019-04-12 2019-04-12 Outpatient MHSE MHSE [id number] MH 12:56:00 12:56:[address] [facility] 2019-04-07 2019-04-07 Outpatient DORIS Prather MHSE [id number] 12:38:00 23:59:00 Atul 03 Emersonn 2019-04-07 2019-04-07 Outpatient MHSE MHSE 0003 MH 12:38:00 12:38:[address] [facility] 2017-05-27 2017-06-06 Discharged ER AMARILIS, [facility] [id number] 22:22:00 15:44:[address] Results Test Description Test Time Test Comments Results Result [facility] e Comments CHEM PANEL 2019-08-18 0.6 [facility] 18:39:00 [facility] CHEM PANEL 2019-08-18 87 [facility] 18:39:00 [facility] HEMATOLOGY 2019-08-11 See Note [facility] 10:01:00 (08/11/19 5:01 [facility] AM) HEMATOLOGY 2019-08-11 Normal (08/11/19 [facility] 10:01:00 5:01 AM) [place] HEMATOLOGY 2019-08-11 91.6 [facility] 10:01:00 [place] HEMATOLOGY 2019-08-11 2.9 [facility] 10:01:00 [facility] HEMATOLOGY 2019-08-11 4.4 [facility] 10:01:00 [facility] HEMATOLOGY 2019-08-11 0.7 [facility] 10:01:00 [place] HEMATOLOGY 2019-08-11 0.4 [facility] 10:01:00 [place] HEMATOLOGY 2019-08-11 11.6 [facility] 10:01:00 [facility] HEMATOLOGY 2019-08-11 0.4 [facility] 10:01:00 [facility] HEMATOLOGY 2019-08-11 0.6 [facility] 10:01:00 [place] HEMATOLOGY 2019-08-11 0.1 [facility] 10:01:00 [facility] HEMATOLOGY 2019-08-11 1+ [facility] 10:01:00 *ABN*(08/11/19 [facility] 5:01 AM) HEMATOLOGY 2019-08-11 Moderate [facility] 10:01:00 *ABN*(08/11/19 [facility] 5:01 AM) HEMATOLOGY 2019-08-11 12.6 [facility] 10:01:00 [facility] HEMATOLOGY 2019-08-11 2.86 [facility] 10:01:00 [facility] HEMATOLOGY 2019-08-11 8.7 [facility] 10:01:00 [facility] HEMATOLOGY 2019-08-11 26.0 [facility] 10:01:00 [facility] HEMATOLOGY 2019-08-11 91.1 [facility] 10:01:00 [facility] HEMATOLOGY 2019-08-11 10:01:00 Test Item Value Reference Range Interpretation Comme nts MCH (test code = MCH) 30.4 pg 27.0-31.0 [facility] YxvsjisVXXURENEHU0090-63-24 10:01:0033.4[facility]ann[facility]MATOLOGY 2019-08-11 10:01:0015.6[facility] GbnzubpNLNJYEFOMM8454-65-31 10:01:00422Qhdhglzs MaskvcmSPLYKBLQAZ2999-81-57 10:01:008.1[facility] VatbwmdDQVOFXBNEJ8663-84-73 00:09:007.9[facility] IrybkxmXRSJZPPVMU7908-00-67 00:09:00 Test Item Value Reference Range Interpretation Comments Leighton Craig TND (test code = Elliotto Tr 1920 1 TND) [facility] HermannCHEM KIZZO0295-60-46 11:06:15261Ueutvudt HermannCHEM PANEL 2019-08-10 11:06:0029[facility] HermannCHEM GKIHG4737-89-18 11:06:000.59[facility] HermannCHEM SUJQH8683-53-56 11:06:82535Gbutwdyn HermannCHEM VRMPE6145-54-30 11:06:004.6[facility] HermannCHEM HZBAA3509-58-75 11:06:29613Nypqdaax HermannCHEM CPIZN6750-89-24 11:06:0027[facility] HermannCHEM NZRID4859-60-47 11:06:009.0 [facility] HermannCHEM DCFGM1402-19-19 11:06:009.6[facility] HermannCHEM PANEL 2019-08-10 11:06:0087[facility] UmblqdsRPDXXYNGIP7931-64-66 11:06:00Normal (08/10/19 6:06 AM)[facility] WysqftqJYXKTLDSOK4153-54-62 11:06:00Normal (08/10/19 6:06 AM)[facility] EoqvmqvCRJUTWHOBA3428-60-88 11:06:0093.3[facility] WOLYDHLZCE9763-09-76 11:06:001.3[facility] NehxeqeMSVJIFBZKU3440-50-18 11:06:005.0 [facility] UyhmonlJOXRJSZKNJ5168-84-82 11:06:000.4[facility] HermannHEMATOLOGY 2019-08-10 11:06:0013.9[facility] XzhandjDTTBCIGUPF3137-28-47 11:06:000.2[facility] JsduhebOQWBVKIPGE5048-71-87 11:06:000.7[facility] RunapnuWBFIMLAVDS5820-46-46 11:06:000.1[facility] PyletsmMCWNXAULCQ5235-42-88 11:06:0014.9[facility] UFLEHHMSJA5417-19-85 11:06:002.97[facility] MepqzkpQSKLYNCMIS3927-49-72 11:06:00 8.6[facility] MxgxmesVLKXPYXQZY3825-63-21 11:06:0026.8[facility] HermannHEMATOLOGY 2019-08-10 11:06:0090.0[facility] LuzibqnKVNGRUHBTC5316-84-81 11:06:00 Test Item Value Reference Range Interpretation Comments MCH (test code = MCH) 29.0 pg 27.0-31.0 [facility] HuofusvVHQPWRJTOO5956-64-09 11:06:0032.2[facility] HermannHEMATOLOGY 2019-08-10 11:06:0015.1[facility] QweyfnqDOXXRYZXXT2634-82-23 11:06:68980Cgbrunxn ItgikpaYFYXDYYFTP4826-00-85 11:06:008.6[facility] XlaqoqzUCVUJCOPNG7677-53-31 15:39:009.1[facility] HermannCHEM PEBBP2316-06-26 10:42:44551Yjgkctxg HermannCHEM PPESN4414-16-51 10:42:0031[facility] HermannCHEM KFVOF2370-58-07 10:42:000.71 [facility] HermannCHEM NHFGM3191-27-17 10:42:06864Rhfccqhk HermannCHEM PANEL 2019-08-09 10:42:004.7[facility] HermannCHEM TAVBP9493-60-62 10:42:41498Moupzjiv HermannCHEM QSNMU7769-92-78 10:42:0026[facility] HermannCHEM KWRCY3337-88-48 10:42:0012.7[facility] HermannCHEM YCHTB4730-27-23 10:42:009.9[facility] HermannCHEM BURIW1987-69-49 10:42:00 Test Item Value Reference Range Interpretation Comments B/C Ratio (test code = B/C Ratio) 44 1 6-25 [facility] HermannCHEM ULRNS3272-39-99 10:42:006.7[facility] HermannCHEM PANEL 2019-08-09 10:42:001.3[facility] HermannCHEM NSEQD5377-60-31 10:42:005.4[facility] HermannCHEM ZKPAD1537-72-30 10:42:00 Test Item Value Reference Range Interpretation Comments A/G Ratio (test code = A/G Ratio) 0.2 1 0.7-1.6 [facility] HermannCHEM FLFND0560-62-20 10:42:0062[facility] HermannCHEM PANEL 2019-08-09 10:42:80029Jlvyammi HermannCHEM CWUFC9710-42-66 10:42:0094[facility] HermannCHEM GXXKK2555-64-16 10:42:000.5[facility] HermannCHEM GCJTA5299-50-66 10:42:0081[facility] UlanxtrKUNJRSSDIZ1932-56-01 10:42:0080.0[facility] ITWSMQCYNE1116-31-92 10:42:008.0[facility] GdgxdvmJYETUEVAIU6614-95-74 10:42:003.0 [facility] OdokjrcDKYIHINWNH6350-88-72 10:42:009.0[facility] HermannHEMATOLOGY 2019-08-09 10:42:0015.0[facility] DklqmgdLQZNPEGHTS2334-97-89 10:42:000.5[facility] WkrjbbrZMVSILUVNR2478-99-75 10:42:001.5[facility] EscqrsgWUYIYMWNKS0530-40-24 10:42:00 Test Item Value Reference Range Interpretation Comments Tot Cell Ct (test code = Tot Cell Ct) 100 1 [facility] WrcyovjQQZTKNMUIF4740-55-31 10:42:00Moderate *ABN*(08/09/19 5:42 AM) [facility] LoujpryZOLBRLXEJS6561-72-75 10:42:0017.1[facility] HermannHEMATOLOGY 2019-08-09 10:42:003.63[facility] VtvezzdPIFTBCXFRN4518-19-92 10:42:0010.6[facility] YrfdivzQSUSFCCSNM7639-68-26 10:42:0033.2[facility] BjldofdQYNOUWLATZ0169-86-18 10:42:0091.4[facility] OkofbucXXOOFSOZVM0399-30-99 10:42:00 Test Item Value Reference Range Interpretation Comments MCH (test code = MCH) 29.2 pg 27.0-31.0 [facility] HszmhuxVOHDMAPPLY2052-67-35 10:42:0031.9[facility] HermannHEMATOLOGY 2019-08-09 10:42:0015.1[facility] SfqnvskDZURXQHEED6531-64-29 10:42:43605Vpmbnrih LmwodlyAYRKSXRVBE4413-56-21 10:42:008.3[facility] HermannCHEM TCMZH3506-83-39 02:14:001.3[facility] HermannBACTERIAL - RTZFPWUB3952-09-23 21:51:00Positive 1*ABN*(08/08/19 4:51 PM)[facility] XvihzziPYPTDNKLJB2051-71-33 21:51:00Not Detected (08/08/19 4:51 PM)[facility] HermannCARDIAC WXAKYDE5889-52-55 20:08:20418Mhceogch HermannANEMIA QUEEH0397-93-54 19:27:269673Xhfdwudp HermannCARDIAC ENZYMES 2019-08-08 19:27:0017[facility] HermannCARDIAC PDPKXCV8940-64-59 19:27:000.02 [facility] HermannCHEM WIJUN9769-82-18 19:27:001.69[facility] HermannCHEM PANEL 2019-08-08 19:27:0049[facility] HermannCHEM KDNJU2844-28-97 19:27:0013[facility] HermannCHEM OPVRS9240-85-90 19:27:00<0.15[facility] HermannCHEM CQGZZ1494-12-38 19:27:63633Rygvevqg HermannCHEM OXJAE8199-01-49 19:27:004.1[facility] HermannCHEM BBXWL1559-76-29 19:27:14998Uyrljgrk HermannCHEM JRFFX3910-71-17 19:27:0014 [facility] HermannCHEM SSVRX3379-41-50 19:27:0020.1[facility] HermannCHEM PANEL 2019-08-08 19:27:006.8[facility] HermannCHEM KMHXZ3650-01-41 19:27:002.5[facility] HermannCHEM NMBAT8526-92-87 19:27:000.8[facility] HermannCHEM EHIEU9555-50-30 19:27:001.7[facility] HermannCHEM QOJLJ8090-10-18 19:27:00 Test Item Value Reference Range Interpretation Comments A/G Ratio (test code = A/G Ratio) 0.5 1 0.7-1.6 [facility] HermannCHEM YSGSI6387-52-59 19:27:0011[facility] HermannCHEM PANEL 2019-08-08 19:27:0025[facility] HermannCHEM VCWWF5180-91-81 19:27:0029[facility] HermannCHEM HQQVT7275-95-52 19:27:000.3[facility] HermannCHEM XJAGG8748-69-08 19:27:38875Czvzzxop HermannCHEM HYZFG3121-99-06 19:27:001.2[facility] FWRBTAPFHI1042-77-53 19:27:00 Test Item Value Reference Range Interpretation Comments PT (test code = PT) 14.9 s 12.0-14.7 [facility] HkmezlfQFEWYDLHPX3191-68-44 19:27:00 Test Item Value Reference Range Interpretation Comments INR (test code = INR) 1.16 1 0.85-1.17 [facility] ClkvgljJFNEEIDZUO4447-89-41 19:27:00 Test Item Value Reference Range Interpretation Comments PTT (test code = PTT) 30.3 s 22.9-35.8 [facility] GrkegjlSOWIADDPAS4596-46-04 19:27:00Normal (08/08/19 2:27 PM)[facility] BzcinakOUEFRQGUNB5584-03-46 19:27:00Normal (08/08/19 2:27 PM)[facility] TQFIGDOSMN9880-59-72 19:27:000.3[facility] AekwhskMEAKHZLJOP7341-11-02 19:27:000.1 [facility] HermannCHEM NZGPJ5207-49-84 14:38:0096[facility] HermannCHEM PANEL 2019-07-24 14:38:0016[facility] HermannCHEM SNSHL3364-14-57 14:38:000.54[facility] HermannCHEM QMNXB1377-99-23 14:38:12737Xyvuhjeg HermannCHEM NYTHC1807-39-62 14:38:004.0[facility] HermannCHEM ZBRTO9473-39-19 14:38:89990Ldmstuhx HermannCHEM CLJCK1246-22-41 14:38:0035[facility] HermannCHEM CBZXQ3618-59-91 14:38:008.8 [facility] HermannCHEM UYKLE6459-96-89 14:38:007.0[facility] HermannCHEM PANEL 2019-07-24 14:38:0090[facility] HermannCHEM ENBBD3920-60-09 14:38:002.3[facility] DufinpmZOIPPIUOCT9780-86-93 14:38:004.6[facility] HuxntnaHSUUAIBJEB4595-10-08 14:38:003.25[facility] DcisuagRUSQOKZACZ5441-51-21 14:38:009.9[facility] HMQDKNVHSX4841-25-59 14:38:0030.1[facility] BagopohPYEFFULAGP5826-62-08 14:38:00 92.3[facility] BjjodhjBDIXCIIGRA5003-82-18 14:38:00 Test Item Value Reference Range Interpretation Comments MCH (test code = MCH) 30.4 pg 27.0-31.0 [facility] BvinlxbZADXRJDIKH8141-70-90 14:38:0033.0[facility] HermannHEMATOLOGY 2019-07-24 14:38:0014.4[facility] JjnbedhNMDFGAXLEC4190-72-10 14:38:40337Tfkzrdsu ElajfyzBTWIDOBKYB9280-77-99 14:38:008.3[facility] GnolpvwNFUGMCKZJQ7771-23-32 16:43:0010.2[facility] RnrabosPKNQFJMSSR8885-75-35 16:43:0030.8[facility] HUDAKALXRA7040-33-37 19:43:009.7[facility] MvukfyrZRSYGSCHCR9868-53-47 19:43:00 29.3[facility] XprdltbYSGKRPIFQS7093-91-79 09:48:009.6[facility] HermannHEMATOLOGY 2019-07-21 09:48:003.28[facility] JkaxoavRIVHXIEBFK6949-57-93 09:48:0092.3[facility] BacxzgsPLCLRXCYSG8665-05-30 09:48:00 Test Item Value Reference Range Interpretation Comments MCH (test code = MCH) 30.1 pg 27.0-31.0 [facility] AyykpaqVFJQIJYVDQ5218-65-79 09:48:0032.7[facility] HermannHEMATOLOGY 2019-07-21 09:48:0014.6[facility] IcjhsenPEBDLSTXFL5410-30-06 09:48:00540Jpnbytpd OppgzmtOSIFBUUPNO3119-84-46 09:48:008.3[facility] YnjukttLLZAGBHYXW1115-63-50 09:48:0085.5[facility] AnbfbyfYQTQGXWZFP7627-84-29 09:48:005.2[facility] VFGRGMIYMK9008-04-60 09:48:009.0[facility] HnfpqqyIGAIPKXKRG7185-45-72 09:48:000.2 [facility] PduqrmoHJRZCWCJEG4455-04-22 09:48:000.1[facility] HermannHEMATOLOGY 2019-07-21 09:48:008.2[facility] LxhaejxJXFNLNCINW1067-50-78 09:48:000.5[facility] TnavfeiDHXHCXIEFR4363-68-06 09:48:000.9[facility] AxrhbjvFBHSAANBNG4953-67-46 02:04:00Not Detected (07/20/19 9:04 PM)[facility] HermannCHEM XXZTM9539-99-71 09:22:0098[facility] HermannCHEM HSPDQ0802-09-80 09:22:0013[facility] HermannCHEM UQTCF7068-90-69 09:22:000.63[facility] HermannCHEM NBUBX2388-36-68 09:22:32785 [facility]annCHEM MXZPP6455-17-81 09:22:004.6[facility] HermannCHEM PANEL 2019-07-20 09:22:19513Sudxmify HermannCHEM BZJLH0367-56-52 09:22:0025[facility] HermannCHEM QVGNK6889-20-01 09:22:008.6[facility] HermannCHEM VIAVS1723-42-78 09:22:009.6[facility] HermannCHEM DBFBX1573-38-41 09:22:0086[facility] HermannCHEM KKZPW0082-84-74 09:22:002.4[facility] HermannCHEM GHQOL5115-44-52 09:22:003.8 [facility] LcafkzdXKFCPXBVLO8408-00-11 09:22:008.7[facility] HermannHEMATOLOGY 2019-07-20 09:22:003.66[facility] EwivvzzSFZDDGGNVU3473-50-93 09:22:0092.4[facility] JyeabrnWDRRMEEXOF0539-86-61 09:22:00 Test Item Value Reference Range Interpretation Comments MCH (test code = MCH) 29.7 pg 27.0-31.0 [facility] IekpdscBFHQOWZAUL4810-96-81 09:22:0032.2[facility] HermannHEMATOLOGY 2019-07-20 09:22:0014.9[facility] IjvnemwQHTCHCGVMP6467-66-72 09:22:96092Bfuyxkbc BephfjhIKVTOVFKFV9304-19-88 09:22:007.9[facility] OgngmbmKMWCZVHDIL2986-32-95 09:22:0077.8[facility] NdwhbwuABYCTPAMMB9212-58-02 09:22:009.6[facility] OQYHYQEJKF6105-69-30 09:22:007.4[facility] IgjnyqvNAYGQOOOAK8662-26-97 09:22:004.8 [facility] OwryfftLJXZHYQBQA4853-48-96 09:22:000.4[facility] HermannHEMATOLOGY 2019-07-20 09:22:006.8[facility] FasznlrVUYWPAVAUS8606-84-16 09:22:000.8[facility] SsnklpqSOHHFIPDLG4227-66-26 09:22:000.6[facility] YxfeyewPHWKEJVYVQ3416-66-78 09:22:000.4[facility] HermannBLOOD BANK LZZJVFH4410-93-73 23:52:00Negative (07/19/19 6:52 PM)[facility] HermannCARDIAC WHOKPLR9660-99-72 23:52:00<0.02 [facility] HermannCHEM XASIJ4299-97-39 23:52:67920Feeyfemm HermannCHEM PANEL 2019-07-19 23:52:0017[facility] HermannCHEM QLBBZ8162-93-85 23:52:000.64[facility] HermannCHEM ITIYU2238-07-83 23:52:83908Zmnbfbeg HermannCHEM ZRHFK3008-32-80 23:52:004.0[facility] HermannCHEM YGPBR1854-76-16 23:52:06913Oqlxaflu HermannCHEM HRDRZ8806-73-44 23:52:0026[facility] HermannCHEM NICWJ6546-88-77 23:52:008.5 [facility] HermannCHEM UKEOP9993-65-61 23:52:008.0[facility] HermannCHEM PANEL 2019-07-19 23:52:0085[facility] FgyyzctXDTZTQMYMF8074-73-64 23:52:00 Test Item Value Reference Range Interpretation Comments PT (test code = PT) 12.5 s 12.0-14.7 [facility] ThiyixvMFFEEOYGIH6186-54-63 23:52:00 Test Item Value Reference Range Interpretation Comments INR (test code = INR) 0.93 1 0.85-1.17 [facility] NckwcttEVWQOOQLXW6981-44-76 23:52:0086.0[facility] HermannHEMATOLOGY 2019-07-19 23:52:006.5[facility] BcnnqfbECMOPUPPOY1566-62-16 23:52:006.2[facility] XlwxtehVNZQKQQNSY5298-02-47 23:52:001.0[facility] RornpswGQLJJHESQD9576-00-68 23:52:000.3[facility] WbduplrYCBONKADUJ3635-30-32 23:52:0010.6[facility] JOFZQDXVFL6583-44-24 23:52:000.8[facility] NmighdmTVNLIWPEDK3418-43-83 23:52:000.8 [facility] UxrowknWHRKOOWMVI4117-19-98 23:52:000.1[facility] HermannURINE AND STOOL 2019-07-19 23:52:00Clear (07/19/19 6:52 PM)[facility] HermannURINE AND STOOL 2019-07-19 23:52:00 Test Item Value Reference Range Interpretation Comments UA Spec Grav (test code = UA Spec 1.012 1 Grav) [facility]annURINE AND WDCYQ1273-65-79 23:52:00 Test Item Value Reference Range Interpretation Comments UA pH (test code = UA pH) 6.0 1 5.0-8.0 [facility]annURINE AND PPGBQ1333-81-32 23:52:00Negative *NA*(07/19/19 6:52 PM) [facility]annUR[facility] AND LIQVK3230-67-96 23:52:00Negative (07/19/19 6:52 PM) [facility]ann[facility] AND XQDIJ4542-25-92 23:52:00Negative (07/19/19 6:52 PM) [facility] AND KQZPY0099-11-41 23:52:00Negative (07/19/19 6:52 PM) [facility] AND YPLVO6682-88-99 23:52:004[facility] HermannURINE AND YJUNU3298-59-70 23:52:001[facility]- CT GUID [facility] COEVF6967-46-12 09:51:00 Name: BILL CHAMBERLAIN [facility] : 1940 Age/S: 78 / [facility] [address] [facility] [id number] Loc: [place] [address] Phys: João Zambrano MD Acct: [id number] Dis Date: 03/06/2019 Status: DIS IN PHONE #: [phone] Exam Date: 03/02/2019 1110 FAX #: [phone] Reason: BIOPDY EXAMS: CPTCODE: [id number] CT GUID NDL [facility] [id number] EXAM: CT-shabbir ded lung biopsy; INFORMATION: Patient with COPD and past history of smoking. Shepresents with a noncalcified spiculated 12 mm nodule located in the posterior basilar portionsof the right lower lobe. TECHNIQUE AND FINDINGS: CT dose reduction protocol; 2.5 mm axial scans. Informed consent was obtained and the patient was placed prone on the CT table. Localization scans were obtained, again demonstrating a small spiculated lower nodule in the right lower lobe, adjacent to small bullae. The patient's skin in theright inferior paraspinal chest region was prepped and draped in the usual sterile fashion. Xylocaine was administered and a short 16-gauge guiding cannula was then inserted into the soft tissues of the right back region. Additional localization scans were obtained. In coaxial fashion to passes were made with a 20-gauge core biopsy needle and a single pass was madewith a 20-gauge Chiba needle. Tissue material was sent to the pathology lab. Immediate post biopsy scans showed a small pneumothorax, less than 10%. IMPRESSION: 1. Successful CT-guided fine-needle aspiration and 20-gauge core biopsy of a small nodule in the lower lobe of the right lung. 2. Immediate post procedure scans showed a small pneumothorax. This pneumothorax increased in size, the patient became symptomatic and she was then treated with insertion of a chest tube as reported separately. Location code: [facility] at 0951 Reported and signed by: João Zambrano M.D. PAGE 1 Signed Report (CONTINUED) Name: BILL CHAMBERLAIN [facility] : 1940 Age/S: 78 / F [address] [facility] Unit #: [id number] Loc: [place] [address] Phys: João Zambrano MD Acct: [id number] Dis Date: 03/06/2019 Status: DIS IN PHONE #: [phone] Exam Date: 03/02/2019 1110 FAX #: [phone] Reason: BIOPDY EXAMS: CPT CODE: [id number] CT GUID NDL [facility] [address] <Continued> CC: Lambert Canada MD; João Zambrano MD Technologist:Ayleen morrison,RT(R),CT CTDI: DLP: Trnscb Date/Time: 03/07/2019 (0951) [email or web address] Orig Print D/T: S: 03/07/2019 (0955) PAGE 2 Signed Report- SP DARION NOGUEIRA W/BIHC5719-07-15 09:30:00 Name: BILL CHAMBERLAIN [facility] : 1940 Age/S: 78 / F [address] [facility] Unit #: [id number] Loc: [place] [address] Phys: João Zambrano MD Acct: [id number] Dis Date: [id number] Status: DIS IN PHONE #: [phone] Exam Date: 03/02/2019 1150 FAX #: [phone] Reason: EXAMS: CPT CODE: [id number] SP PERC PLEBRENNAN NOGUEIRA W/IMAG 74409 Fluoro Time: DAP (Gy m2): Air Kerma (mGy): EXAM: CT-guided insertion of a chest tube, conscious sedation; INFORMATION: Patient with COPD and past history of smoking. She status post CT-guided biopsy of a small right lower lobe lung nodule. She developed chest painand shortness of breath after biopsy. A postprocedure scan showed a 20% right-sided pneumothorax. TECHNIQUE AND FINDINGS: CT dose reduction protocol; 2.5 mm scans; Conscious sedation start time: 1142 hours; Completion time: 1150 hours; Under physician supervision 1 mg of Versed was administered intravenously for sedation. The patient's heart rate, blood pressure and pulse oximetry were continuously monitored by a trained registered nurse. Physician [id number] sedation time was 8 minutes. Informed consent for chest tube placement had been obtained prior to lung biopsy. The patient was placed supine on the CT table and localization scans were obtained. The demonstrated again a 20% right-sided pneumothorax. The patient's skin in the right anterior chest wall region was prepped and draped in the usual sterile fashion. Xylocaine was administered and an 8 Vietnamese pigtail catheter was inserted into the right pleural cavity. The pneumothorax was evacuated. The catheter was sutured to the skin and connected to Pleur-evac drainage. Post procedure scans showed almost complete ligation of the pneumothorax and a well-positioned smallbore chest tube. No complications. IMPRESSION: Successful insertion of a right chest tube for treatment of a symptomatic pneumothorax after CT-guided lung biopsy. Location code: [facility] at 0930 Reported and signed by: João Zambrano M.D. PAGE 1 Signed Report (CONTINUED) Name: ANEUDYCHRISEderBILLROBERTO MASSEY [facility] : 1940 Age/S: 78 / F [address] [facility] Unit #: [id number] Loc: [place] [address] Phys: João Zambrano MD Acct: [id number] Dis Date: [id number] Status: DIS IN PHONE #: [phone] Exam Date: 03/02/2019 1150 FAX #: [phone] Reason: EXAMS: CPTCODE: [id number] SP PERC PLEUR DRN W/IMAG 28291 Fluoro Time: DAP (Gy m2): Air Kerma (mGy): <Continued> CC: Lambert Canada MD; João Zambrano MD Technologist: Luther Thompson RT(R) Trnazb Date/Time: 03/07/2019 (929) [email or web address] Orig Print D/T:S: 03/07/2019 (932) PAGE 2 Signed Report- CT GUID NDL PLCDE 2019-03-07 09:30:00 Name: BILL CHAMBERLAIN [facility] : 1940 Age/S: 78 / F [address] Unit #: [id number] Loc: [place] [address] Phys: João Zambrano MD Acct: [id number] Dis Date: 03/06/2019 Status: DIS IN PHONE #: [phone] Exam Date: 03/02/2019 1147 FAX #: [phone] Reason: CHEST TUBE [facility] EXAMS: CPTCODE: [id number] CT GUID NDL [facility] [address] EXAM: CT-guided insertion of a chest tube, conscious sedation; INFORMATION: Patient with COPD and past history of smoking. She status post CT-guided biopsy of a small right lower lobe lung nodule. She developed chest pain and shortness of breath after biopsy. A postprocedure scan showed a 20% right-sided pneumothorax. TECHNIQUE AND FINDINGS: CT dose reduction protocol; 2.5 mm scans; Conscious sedation start time: 1142 hours; Completion time: 1150 hours; Under physician supervision 1 mg of Versed was administered intravenou sly for sedation. The patient's heart rate, blood pressure and pulse oximetry were continuously monitored by a trained registered nurse. Physician [id number] sedation time was 8 minutes. Informed consent for chest tube placement had been obtained prior to lung biopsy. The patient was placed supine on the CT table and localization scans were obtained. The demonstrated again a 20% right-sided pneumothorax. The patient's skin in the right anterior chest wall region was prepped and draped in the usual sterile fashion. Xylocaine was administered and an 8 Vietnamese pigtail catheter was inserted into the right pleural cavity. The pneumothorax was evacuated. The catheter was sutured to the skin and connected to Pleur-evac drainage. Post procedure scans showed almost complete ligation of the pneumothorax and a well-positioned smallbore chest tube. No complications. IMPRESSION: Soni ccessful insertion of a right chest tube for treatment of a symptomatic pneumothorax after CT-guided lung biopsy. Location code: [facility] Electronically Signedby Laurita Zambrano on 03/07/2019 at 0930 Reported and signed by: João Zambrano M.D. PAGE 1 Signed Report (CONTINUED) Name: BILL CHAMBERLAIN [facility] : 1940 Age/S: 78 / F [address] [facility] Unit #: [id number] Loc: [place] [address] Phys: João Zambrano MD Acct: [id number] Dis Date: 03/06/2019 Status: DIS IN PHONE #: [phone] Exam Date: 03/02/2019 1141 FAX #: [phone] Reason: CHEST TUBE PLCDE EXAMS: CPT CODE: [id number] CT GUID NDL PLCMT 23093 <Continued> CC: Lambert Canada MD; João Zambrano MD Technologist:Ayleen James,RT(R),CT CTDI: DLP: Trnscb Date/Time: 03/07/2019 (929) Ganesh Orig Print D/T: S: 03/07/2019 (932) PAGE 2 Signed ReportLUNG,BIOPSY 2019-03-06 18:18:00 RUN DATE: 03/06/19 [facility] PAGE 1 RUN TIME: 8 Specimen Inquiry RUN USER: INTERFACE PATIENT: BILL CHAMBERLAIN LOC: [place] U #: [id number] AGE/SX: 78/F ROOM: [facility] RE03/04/19REG DR: Aaron Jeronimo MD : 40 BED: A DIS: 03/06/19 STATUS: DIS IN TLOC: SPEC #: [id number] RECD: 03/02/19 STATUS: YUDI MEDINA #: [id number] MARLI: 03/02/19- SUBM DR: João Zambrano MD ENTERED: 03/02/19 SP TYPE: LUNG BX OTHR DR: Lambert Canada MD ORDERED: GROSS COPIES TO: Lambert Canada MD [address] [place], [place] [id number] João Zambrano MD [address] [facility] [place], [place] [id number] PROCEDURES: GROSS (03/06/19-153) TISSUES: LUNG, NOS - BX, TOUCH PREP SLIDE CLINICAL HISTORY COLLECTION DATE: 03/02/19 RLL LUNG NODULE COMMENT Malignant cells are seen in the touch prep slide. These cell have enlarged, hyperchromatic nuclei with moderate amounts of cytoplasm. The features are best seen in the biopsy specimen which shows lung parenchyma with fibrosis infiltrated by irregular glandular spaces. These glands are lined by cells with the same cytologic features as those seen in the touch prep. Occasional cells are more pleomorphic in appearance. Scattered mitotic figures are present. The histologic features are those of an adenocarcinoma. Paraffin embedded tissue was submitted to [employer] for confirmatory immunoperoxidase stains. The slides are reviewed at [facility]. The controls stain appropriately. The malignant cells are shown to be strongly and diffusely positive for CK7, Napsin A and TTF-1. This immunoperoxidase staining pattern supports the diagnosis of adenocarcinoma of pulmonary origin. Clinical correlation is necessary. CONTINUED ON NEXT PAGE ------ ------RUN DATE: 03/06/19 [facility] PAGE 2 RUN TIME: 1817 Specimen Inquiry RUN USER: INTERFACE SPEC #: [id number] PATIENT: BILL CHAMBERLAIN #[id number] (Continued) FINAL DIAGNOSIS Lung, right lower lobe nodule, biopsy with touch prep: ADENOCARCINOMA COMPATIBLE WITH PULMONARY PRIMARY, see comment RRB/sm D 02001, 92054, 59674l0, 48570n1 MACROSCOPIC The specimen is received in formalin, labeled with the patient's name, and identified as "right lower lobe lung nodule". It consists of minute portions of tansoft tissue ranging from less than 0.1 to 0.3 cm. It is entirely submitted in a single cassette.A touchprep slide is also received for processing. GROSS PERFORMED AT [facility] [address] [place] [address] [phone] MICROSCOPIC All of the stains, including any controls performed, stain appropriately. MICROSCOPIC PERFORMED AT [facility] [address] [place] [address] [phone] PERFORMING SITE Diagnosis performed at: [facility], [facility] [address] [place], [place] [id number] Signed SIGNATURE ON FILE Travon Hu MD 03/06/19 1818 END OF REPORT - XR CHEST 2 [id number] 15:06:00 FAX: Lambert Farrell MD [phone] [place]: St: [facility] FAX: Moises Jeronimo [phone] FAX: João Trinidad [phone] Name: BILL CHAMBERLAIN [facility] : 1940 Age/S: 78/F [address] Unit #: [id number] Loc: V.[address] [place] [address] Phys: Lambert Canada MD Acct: [id number] Dis Date: Status: ADM IN PHONE #: [phone] Exam Date: 03/05/2019 1445 FAX #: [phone] Reason: COPD prior pneumothorax EXAMS: CPT CODE: [id number] XR CHEST 2 V 36007 HISTORY: COPD. COMPARISON: Previous day. Location: TH. AP and lateral view of the chest: No acute infiltrates, effusion or congestion. COPD with upper lobe predominance. Lung scarring. Previously noted right apical pneumothorax is no longer visible. Cardiomegaly. 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 IMPRESSION: Previously noted pneumothorax in the right apex is not clearly visible. The lungs are clear. COPD and scarring. at 1506 Reported and signed by: Manuel Hu M.D. CC: Lambert Canada MD; Aaron Jeronimo MD; João Zambrano MD Technologist: ROSANNA HU RT(R) Trnscrd Date/Time/By: 03/05/2019 (0989) : By: [email or web address] Orig Print D/T: S: 03/05/2019 (2043) PAGE 1 Signed ReportBASIC METABOLIC [id number] 04:57:00 Test Item Value Reference Range Interpretation Comments SODIUM (test code = 138 mmol/L 136-145 N NA) POTASSIUM (test code 4.6 mmol/L 3.5-5.1 N = K) CHLORIDE (test code = 106.0 mmol/L 98-107 N CL) CARBON DIOXIDE (test 27.0 mmol/L 21-32 N code = CO2) ANION GAP (test code 9.6 10-20 L = GAP) GLUCOSE (test code = 120 mg/dL 74-106 H GLU) BLOOD UREA NITROGEN 17 mg/dL 7-18 N (test code = BUN) GLOMERULAR FILTRATION > 60 mL/min >=60 Estima alec GFR by RATE (test code = using Mabel fied MDRD GFR) formula.Chronic kidney disease is defined as the [facility] kidney damageor GFR <60 mL/min/1.73 m2 for >3 months. CREATININE (test code 0.70 mg/dL 0.55-1.02 N Note change in = CREAT) reference range due to change in reagent. BUN/CREATININE RATIO 25.4 10-20 H (test code = BUN/CREA) CALCIUM (test code = 8.9 mg/dL 8.5-10.1 N CA) PT REFUSED NOTIFIED KARRI JOE ([id number]) V.LAB. [id number] METABOLIC [id number] 04:47:00 Test Item Value Reference Range Interpretation Comments SODIUM (test code = NA) 138 mmol/L 136-145 N POTASSIUM (test code = K) 4.6 mmol/L 3.5-5.1 N CHLORIDE (test code = CL) 106.0 mmol/L 98-107 N CARBON DIOXIDE (test code = CO2) mmol/L 21-32 ANION GAP (test code = GAP) 10-20 GLUCOSE (test code = GLU) mg/dL 74-106 BLOOD UREA NITROGEN (test code = mg/dL 7-18 BUN) GLOMERULAR FILTRATION RATE (test mL/min >=60 code = GFR) CREATININE (test code = CREAT) mg/dL 0.55-1.02 BUN/CREATININE RATIO (test code 10-20 = BUN/CREA) CALCIUM (test code = CA) mg/dL 8.5-10.1 PT REFUSED NOTIFIED KARRI JOE ([id number]) V.LAB. 03/05/270192MCF W/AUTO DIFF 2019-03-05 04:44:00 Test Item Value Reference Range Interpretation Comments WHITE BLOOD CELL (test code = 7.3 K/mm3 4.5-12.5 N WBC) RED BLOOD CELL (test code = 4.00 mill/mm3 3.7-5.2 N RBC) HEMOGLOBIN (test code = HGB) 11.7 gram/dL 11.5-15.5 N HEMATOCRIT (test code = HCT) 36.9 % 36.0-46.0 N MEAN CELL VOLUME (test code = 92.3 fL 80-98 N MCV) MEAN CELL HGB (test code = MCH) 29.3 picogram 27.0-33.0 N MEAN CELL HGB CONCETRATION 31.7 gram/dL 33.0-36.0 L (test code = MCHC) RED CELL DISTRIBUTION WIDTH 13.9 % 11.6-16.2 N (test code = RDW) RED CELL DISTRIBUTION WIDTH SD 46.9 fL 37.0-51.0 N (test code = RDW-SD) PLATELET COUNT (test code = 251 K/mm3 150-450 PLT) MEAN PLATELET VOLUME (test code 10.1 fL 6.7-11.0 N = MPV) NEUTROPHIL % (test code = NT%) 82.5 % 39.0-69.0 H IMMATURE GRANULOCYTE % (test 0.8 % 0.0-5.0 N code = IG%) LYMPHOCYTE % (test code = LY%) 10.9 % 25.0-55.0 L MONOCYTE % (test code = MO%) 5.7 % 0.0-10.0 N EOSINOPHIL % (test code = EO%) 0.0 % 0.0-5.0 N BASOPHIL % (test code = BA%) 0.1 % 0.0-1.0 N NUCLEATED RBC % (test code = 0.0 % 0-0 N NRBC%) NEUTROPHIL # (test code = NT#) 6.02 K/mm3 1.8-7.7 N IMMATURE GRANULOCYTE # (test 0.06 x10 3/uL 0-0.03 H code = IG#) LYMPHOCYTE # (test code = LY#) 0.80 K/mm3 1.0-5.0 L MONOCYTE # (test code = MO#) 0.42 K/mm3 0-0.8 N EOSINOPHIL # (test code = EO#) 0.00 K/mm3 0.0-0.5 N BASOPHIL # (test code = BA#) 0.01 K/mm3 0.0-0.2 N NUCLEATED RBC # (test code = 0.00 K/mm3 0.0-0.1 N NRBC#) PT REFUSED NOTIFIED KARRI JOE ([id number]) V.LAB. [id number] W/AUTO DIFF 2019-03-04 10:50:00 Test Item Value Reference Range Interpretation Comments WHITE BLOOD CELL (test code = 7.6 K/mm3 4.5-12.5 N WBC) RED BLOOD CELL (test code = 3.53 mill/mm3 3.7-5.2 L RBC) HEMOGLOBIN (test code = HGB) 10.5 gram/dL 11.5-15.5 L HEMATOCRIT (test code = HCT) 34.2 % 36.0-46.0 L MEAN CELL VOLUME (test code = 96.9 fL 80-98 N MCV) MEAN CELL HGB (test code = MCH) 29.7 picogram 27.0-33.0 N MEAN CELL HGB CONCETRATION 30.7 gram/dL 33.0-36.0 L (test code = MCHC) RED CELL DISTRIBUTION WIDTH 14.3 % 11.6-16.2 N (test code = RDW) RED CELL DISTRIBUTION WIDTH SD 50.3 fL 37.0-51.0 N (test code = RDW-SD) PLATELET COUNT (test code = 196 K/mm3 150-450 N PLT) MEAN PLATELET VOLUME (test code 9.8 fL 6.7-11.0 N = MPV) NEUTROPHIL % (test code = NT%) 55.2 % 39.0-69.0 N IMMATURE GRANULOCYTE % (test 0.3 % 0.0-5.0 N code = IG%) LYMPHOCYTE % (test code = LY%) 29.3 % 25.0-55.0 N MONOCYTE % (test code = MO%) 10.8 % 0.0-10.0 H EOSINOPHIL % (test code = EO%) 4.0 % 0.0-5.0 N BASOPHIL % (test code = BA%) 0.4 % 0.0-1.0 N NUCLEATED RBC % (test code = 0.0 % 0-0 N NRBC%) NEUTROPHIL # (test code = NT#) 4.19 K/mm3 1.8-7.7 N IMMATURE GRANULOCYTE # (test 0.02 x10 3/uL 0-0.03 N code = IG#) LYMPHOCYTE # (test code = LY#) 2.22 K/mm3 1.0-5.0 N MONOCYTE # (test code = MO#) 0.82 K/mm3 0-0.8 H EOSINOPHIL # (test code = EO#) 0.30 K/mm3 0.0-0.5 N BASOPHIL # (test code = BA#) 0.03 K/mm3 0.0-0.2 N NUCLEATED RBC # (test code = 0.00 K/mm3 0.0-0.1 N NRBC#) - XR CHEST 1 [id number] 08:11:00 FAX: Lambert Farrell MD [phone] [place]: B St: [facility] FAX: Moises Jeronimo [phone] FAX: João Trinidad [phone] Name: BILL CHAMBERLAIN [facility] : 1940 Age/S: 78/F [address] Unit #: [id number] Loc: [address] [place] [address] Phys: Aaron Jeronimo MD Acct: [id number] Dis Date: Status: ADM IN PHONE #: [phone] Exam Date: 03/04/2019729 FAX #: [phone] Reason: pneumothorax EXAMS: CPT CODE: [id number] XR CHEST 1 V 70804 REASON FOR EXAM: pneumothorax Exam Order Date: 03/04/2019 6:00 AM Ordering M.D.: Aaron Jeronimo MD PROCEDURE: - XR CHEST 1 V COMPARISON: Frontal chest x-ray March 03, 2019 FINDINGS: There is mild subsegmental atelectasis in the lung bases. Tiny right apical pneumothorax is unchanged in size. Cardiomediastinal silhouette is normal in size for technique. Atherosclerotic disease in the aortic arch is unchanged. Kyphoplasty changes areredemonstrated in the midthoracic spine. Bone mineralization is decreased. The visualized upper abdomen is within normal limits. IMPRESSION: Tiny right apical pneumothorax is unchanged in size. Remaining findings are also unchanged. Location: [facility] at 0811 Reported and signed by: Sg Klein MD CC: Lambert Canada MD; Aaron Jeronimo MD; João Zambrano MD Technologist: ROSANNA HU RT(R) Trnscrd Date/Time/By: 03/04/2019 (0811) : By: [email or web address] Orig Print D/T: S: 03/04/2019 (14) PAGE 1 Signed Report- XR CHEST 1 [id number] 17:58:00 [place]: St: ADM Name: BILL CHAMBERLAIN [facility] : 1940 Age/S: 78/F [address] Unit#: [id number] Loc: V.[address] [place] [address] Phys: João Zambrano MD Acct: [id number] Dis Date: Status: ADM IN PHONE #: [phone] Exam Date: 03/03/2019 1633 FAX #: [phone] Reason: POST TUBE CHEST REMOVAL EXAMS: CPT CODE: [id number] XR CHEST 1 V 50594 HISTORY: Chest tube removal. COMPARISON: Same day. Location: [facility]. No acute infiltrates, effusion or congestion is noted. Trace less than 2% apical pneumothorax on the right is unchanged. Lung scarring. Cardiomegaly. Kyphoplasty change in the mid dorsal spine. IMPRESSION: No acute infiltrates, effusion or congestion. Trace less than 2% right apical pneumothorax is unchanged from previous exam. at 9823 Reported and signed by: Manuel Hu M.D. CC: Technologist: NADEEN MONTANEZ)Wilver Date/Time/By: 03/03/2019 (2934) : By: [email or web address] Orig Print D/T: S: 03/03/2019 (1546) PAGE 1 Signed Report- XR CHEST 1 [id number] 14:36:00 FAX: Lambert Farrell MD [phone] [place]: St: ADM FAX: Moises Jeronimo [phone] FAX: João Trinidad [phone] Name: BILL CHAMBERLAIN [facility] : 1940 Age/S: 78/F [address] Unit #: [id number] Loc: [address] [place] [address] Phys: João Zambrano MD Acct: [id number] Dis Date: Status: ADM IN PHONE #: [phone] Exam Date: 03/03/2019 1425 FAX #: [phone] Reason: POST CHEST TUBE EXAMS: CPT CODE: [id number] XR CHEST 1 V 65444 HISTORY: Post chest tube placement. COMPARISON: Same day. Location: [facility]. Right chest tube is no longer seen. Trace 2% apical pneumothorax is still visible. Lungs are clear. Lung nodule in the right lower lobe isnot clearly visible. Kyphoplasty change in the dorsal spine. Cardiac silhouette is mildly enlarged IMPRESSION: Right chest tube is no longer seen. Trace 2% left apical pneumothorax. at 1437 Reported and signed by: Manuel Hu M.D. CC: Lambert Canada MD; Aaorn Jeronimo MD; João Zambrano MD Technologist: RT LISSETH(Kristina) TrnscrdDate/Time/By: 03/03/2019 (6769) : By: [email or web address] Orig Print D/T: S: 03/03/2019 (7618) PAGE 1 Signed Report- XR CHEST 1 [id number] 07:59:00 FAX: Lambert Farrell MD [phone] [place]: St: ADM FAX: Moises Jeronimo [phone] FAX: João Trinidad [phone] Name: BILL CHAMBERLAIN [facility] : 1940 Age/S: 78/F [address] Unit #: [id number] Loc: [address] [address] Phys: Aaron Jeronimo MD Acct: [id number] Dis Date: Status: ADM IN PHONE #: [phone] Exam Date: 03/03/2019 0710 FAX #: [phone] Reason: pneumothorax EXAMS: CPT CODE: [id number] XR CHEST 1 V 04955 CLINICAL HISTORY: pneumothorax TECHNIQUE: AP chest x-ray COMPARISON: Previous day. IMPRESSION: Right pigtail drainage catheter remains in place. Stable tiny right apical pneumothorax. No airspace consolidation or pleural effusion. No mediastinal shift. Normal heart size. Atherosclerotic vascular calcification of the thoracic aorta. LOCATION:[facility] at 0759 Reported and signed by: Maryanne Watson D.O. CC: Lambert Canada MD; Aaron Jeronimo MD; João Zambrano MD Technologist: Marlene Jacobs Trnscrd Date/Time/By: (0759) : By: [email or web address] Orig Print D/T: S: 03/03/2019 (0802) PAGE 1 Signed ReportBASIC METABOLIC [id number] 03:01:00 Test Item Value Reference Range Interpretation Comments SODIUM (test code = 141 mmol/L 136-145 N NA) POTASSIUM (test code 5.1 mmol/L 3.5-5.1 N = K) CHLORIDE (test code = 109.0 mmol/L 98-107 H CL) CARBON DIOXIDE (test 26.0 mmol/L 21-32 N code = CO2) ANION GAP (test code 11.1 10-20 N = GAP) GLUCOSE (test code = 125 mg/dL 74-106 H GLU) BLOOD UREA NITROGEN 14 mg/dL 7-18 N (test code = BUN) GLOMERULAR FILTRATION > 60 mL/min >=60 Estima alec GFR by RATE (test code = using Mabel fied MDRD GFR) formula.Chronic kidney disease is defined as eith er kidney damageor GFR <60 mL/min/1.73 m2 for >3 months. CREATININE (test code 0.60 mg/dL 0.55-1.02 N Note change in = CREAT) reference range due to change in reagent. BUN/CREATININE RATIO 22.0 10-20 H (test code = BUN/CREA) CALCIUM (test code = 9.3 mg/dL 8.5-10.1 N CA) BASIC METABOLIC [id number] 02:57:00 Test Item Value Reference Range Interpretation Comments SODIUM (test code = NA) 141 mmol/L 136-145 N POTASSIUM (test code = K) 5.1 mmol/L 3.5-5.1 N CHLORIDE (test code = CL) 109.0 mmol/L 98-107 H CARBON DIOXIDE (test code = CO2) mmol/L 21-32 ANION GAP (test code = GAP) 10-20 GLUCOSE (test code = GLU) mg/dL 74-106 BLOOD UREA NITROGEN (test code = mg/dL 7-18 BUN) GLOMERULAR FILTRATION RATE (test mL/min >=60 code = GFR) CREATININE (test code = CREAT) mg/dL 0.55-1.02 BUN/CREATININE RATIO (test code 10-20 = BUN/CREA) CALCIUM (test code = CA) mg/dL 8.5-10.1 CBC W/AUTO [id number] 02:38:00 Test Item Value Reference Range Interpretation Comments WHITE BLOOD CELL (test code = 6.1 K/mm3 4.5-12.5 N WBC) RED BLOOD CELL (test code = 3.80 mill/mm3 3.7-5.2 N RBC) HEMOGLOBIN (test code = HGB) 11.4 gram/dL 11.5-15.5 L HEMATOCRIT (test code = HCT) 36.9 % 36.0-46.0 N MEAN CELL VOLUME (test code = 97.1 fL 80-98 N MCV) MEAN CELL HGB (test code = MCH) 30.0 picogram 27.0-33.0 N MEAN CELL HGB CONCETRATION 30.9 gram/dL 33.0-36.0 L (test code = MCHC) RED CELL DISTRIBUTION WIDTH 14.0 % 11.6-16.2 N (test code = RDW) RED CELL DISTRIBUTION WIDTH SD 49.8 fL 37.0-51.0 N (test code = RDW-SD) PLATELET COUNT (test code = 216 K/mm3 150-450 N PLT) MEAN PLATELET VOLUME (test code 10.0 fL 6.7-11.0 N = MPV) NEUTROPHIL % (test code = NT%) 83.1 % 39.0-69.0 H IMMATURE GRANULOCYTE % (test 0.7 % 0.0-5.0 N code = IG%) LYMPHOCYTE % (test code = LY%) 14.2 % 25.0-55.0 L MONOCYTE % (test code = MO%) 1.8 % 0.0-10.0 N EOSINOPHIL % (test code = EO%) 0.0 % 0.0-5.0 N BASOPHIL % (test code = BA%) 0.2 % 0.0-1.0 N NUCLEATED RBC % (test code = 0.0 % 0-0 N NRBC%) NEUTROPHIL # (test code = NT#) 5.10 K/mm3 1.8-7.7 N IMMATURE GRANULOCYTE # (test 0.04 x10 3/uL 0-0.03 H code = IG#) LYMPHOCYTE # (test code = LY#) 0.87 K/mm3 1.0-5.0 L MONOCYTE # (test code = MO#) 0.11 K/mm3 0-0.8 N EOSINOPHIL # (test code = EO#) 0.00 K/mm3 0.0-0.5 N BASOPHIL # (test code = BA#) 0.01 K/mm3 0.0-0.2 N NUCLEATED RBC # (test code = 0.00 K/mm3 0.0-0.1 N NRBC#) MANUAL DIFF REQUIRED (test code NO = MDIFF) CBC W/AUTO [id number] 02:25:00 Test Item Value Reference Range Interpretation Comments WHITE BLOOD CELL (test code = WBC) K/mm3 4.5-12.5 RED BLOOD CELL (test code = RBC) mill/mm3 3.7-5.2 HEMOGLOBIN (test code = HGB) gram/dL 11.5-15.5 HEMATOCRIT (test code = HCT) 36.9 % 36.0-46.0 N MEAN CELL VOLUME (test code = MCV) fL 80-98 MEAN CELL HGB (test code = MCH) picogram 27.0-33.0 MEAN CELL HGB CONCETRATION (test gram/dL 33.0-36.0 code = MCHC) RED CELL DISTRIBUTION WIDTH (test % 11.6-16.2 code = RDW) RED CELL DISTRIBUTION WIDTH SD fL 37.0-51.0 (test code = RDW-SD) PLATELET COUNT (test code = PLT) K/mm3 150-450 MEAN PLATELET VOLUME (test code = fL 6.7-11.0 MPV) NEUTROPHIL % (test code = NT%) % 39.0-69.0 IMMATURE GRANULOCYTE % (test code = % 0.0-5.0 IG%) LYMPHOCYTE % (test code = LY%) % 25.0-55.0 MONOCYTE % (test code = MO%) % 0.0-10.0 EOSINOPHIL % (test code = EO%) % 0.0-5.0 BASOPHIL % (test code = BA%) % 0.0-1.0 NEUTROPHIL # (test code = NT#) K/mm3 1.8-7.7 LYMPHOCYTE # (test code = LY#) K/mm3 1.0-5.0 MONOCYTE # (test code = MO#) K/mm3 0-0.8 EOSINOPHIL # (test code = EO#) K/mm3 0.0-0.5 BASOPHIL # (test code = BA#) K/mm3 0.0-0.2 - XR CHEST 1 [id number] 15:56:00 FAX: Lambert Farrell MD [phone] [place]: St: [facility] FAX: João Trinidad [phone] Name: BILL CHAMBERLAIN [facility] : 1940 Age/S: 78/F [address] [facility] Unit #: [id number] Loc: V.[address] [place] [address] Phys: João Zambrano MD Acct: Tigist [id number] Dis Date: Status: ADM IN PHONE #: [phone] Exam Date: 03/02/2019 1527 FAX #: [phone] Reason: PTX post R lung bx; st.p. R chest tube; EXAMS: CPT CODE: [id number] XR CHEST 1 V 21817 HISTORY: Right biopsy and right chest tube. COMPARISON: March 02, 2019. Location: [facility]. Single view chest: Trace less than 5% right apical pneumothorax is noted again. Right chest tube noted again. Lung scarring with small left effusion. COPD. Fib rocalcific residuals in the upper lobes. Cardiomegaly. Kyphoplasty change in the mid dorsal spine. IMPRESSION: Trace less than 5% right apical pneumothorax despite presence of chest tube demonstrating no change. at 9923 Reported and signed by: Manuel Hu M.D. CC: Lambert Canada MD; João Zambrano MD Technologist: Spencer Castro RT(R) Trnscrd Date/Time/By: 03/02/2019 (8117) : By: [email or web address] Orig Print D/T: S: 03/02/2019 (1943) PAGE 1 Signed Report- XR CHEST 1 V 2019-03-02 12:24:00 FAX: Lambert Farrell MD [phone] [place]: St: PRE FAX: João Trinidad [phone] Name: BILL CHAMBERLAIN [facility] : 1940 Age/S: 78/F [address] [facility] Unit #: [id number] Loc: [place] [address] Phys: João Zambrano MD Acct: Tigist [id number] Dis Date: Status: PRE SDC PHONE #: [phone] Exam Date: 03/02/2019 1203 FAX #: [phone] Reason: PNEUMOTHORAX/POST CHEST TUBE PLACEMENT EXAMS: CPT CODE: [id number] XR CHEST 1 V 71681 REASON FOR EXAM: PNEUMOTHORAX/POST CHEST TUBE PLACEMENT Exam Order Date: 03/02/2019 11:49 AM Ordering M.DIon: João Zambrano MD PROCEDURE: - XR CHEST 1 V COMPARISON: CT chest and chest radiograph earlier today FINDINGS/ IMPRESSION: Interval placement of right pleural pigtail catheter with marked decrease in size of the right-sided pneumothorax. Remaining findings are unchanged. Location: [facility] at 4874 Reported and signed by: Sg Klein MD CC: Lambert Canada MD; João Zambrano MD Technologist: RT TIMOTEO(R) Trnscrd Date/Time/By: 03/02/2019 (5350) : By: [email or web address] Orig Print D/T: S: 03/02/2019 (4658) PAGE 1 Signed Report- XR CHEST 1 V 2019-03-02 12:03:00 FAX: Lambert Farrell MD [phone] [place]: St: PRE FAX: João Trinidad [phone] Name: BILL CHAMBERLAIN [facility] : 1940 Age/S: 78/F [address] Unit #: [id number] Loc: [place] [address] Phys: João Zambrano MD Acct: [id number] Dis Date: Status: PRE [facility] PHONE #: [phone] Exam Date: 03/02/2019 1130 FAX #: [phone] Reason: POST THORA EXAMS: CPT CODE: [id number] XR CHEST 1 V 09395 REASON FOR EXAM: POST THORA Exam Order Date: 03/02/2019 11:24 AM Ordering M.Shayan.: João Zambrano MD PROCEDURE: - XR CHEST 1 V COMPARISON: CT chest February 01, 2019 FINDINGS: There is a moderate-sized pneumothorax involving the right lung. No confluent airspace disease is seen. Left lung is clear other than mild subsegmental atelectasis in the bases. Cardiomediastinal silhouette is normal in size for technique. The mediastinal contours are within normal limits. Kyphoplasty changes are noted in the midthoracic spine. The visualized upper abdomen is within normal limits. IMPRESSION: Moderate right-sided pneumothorax following thoracentesis. Location: [facility] at 1203 Reported and signed by: Sg Klein MD CC: Lambert Canada MD; João Zambrano MD Technologist: RT TIMOTEO(R) Trnscrd Date/Time/By: 03/02/2019 ([id number]) : By: [email or web address] Orig Print D/T: S: 03/02/2019 ([id number]) PAGE 1 Signed ReportPROTHROMBIN TIME 2019-03-01 15:04:00 Test Item Value Reference Range Interpretation Comments PROTHROMBIN TIME 10.6 seconds 9.0-14.0 N PATIENT (test code = PTP) INTERNATIONAL NORMAL 0.9 0.8-1.2 N The the rapeutic range RATIO (test code = for oral INR) anticoagulant t herapy formost indicat ions is an internati onal normalized rati o (INR)of between 2.0 and 3.0. The recommended therapeutic INR range for various cli nical situations is l isted below: Clinical Situat ion INR range Pulmonary embol ism treatment (2.0-3.0)Venou s thrombosis treatmentVenous thrombosis prophylaxis (hi gh risk surgery)Prevent ion of systemic emboli sm from: A cute myocardial infa rction Valvula r heart disease Atrial fibrilla tion Mechanical pros thetic heart valves (2.5-3.5) CLOTTEDCALLED PATIENT TO RETURN FOR RECOLLECT. PATIENT SAID SHEWILL RETURN TOMORROW FOR RECOLLECT OFBLUE TOP TUBE. V.LAB. 02/28/19 1830THROMBOPLASTIN TIME [id number] 15:04:00 Test Item Value Reference Range Interpretation Comments THROMBOPLASTIN TIME PARTIAL 26.4 seconds 25.0-36.5 N (test code = PTT) CLOTTEDCALLED PATIENT TO RETURN FOR RECOLLECT. PATIENT SAID SHEWILL RETURN TOMORROW FOR RECOLLECT OFBLUE TOP TUBE. V.LAB. 02/28/19 1830CBC W/AUTO DIFF 2019-02-28 17:02:00 Test Item Value Reference Range Interpretation Comments WHITE BLOOD CELL (test code = 7.2 K/mm3 4.5-12.5 N WBC) RED BLOOD CELL (test code = 4.21 mill/mm3 3.7-5.2 N RBC) HEMOGLOBIN (test code = HGB) 12.6 gram/dL 11.5-15.5 N HEMATOCRIT (test code = HCT) 39.8 % 36.0-46.0 N MEAN CELL VOLUME (test code = 94.5 fL 80-98 N MCV) MEAN CELL HGB (test code = MCH) 29.9 picogram 27.0-33.0 N MEAN CELL HGB CONCETRATION 31.7 gram/dL 33.0-36.0 L (test code = MCHC) RED CELL DISTRIBUTION WIDTH 14.1 % 11.6-16.2 N (test code = RDW) RED CELL DISTRIBUTION WIDTH SD 48.9 fL 37.0-51.0 N (test code = RDW-SD) PLATELET COUNT (test code = 211 K/mm3 150-450 N PLT) MEAN PLATELET VOLUME (test code 11.1 fL 6.7-11.0 H = MPV) NEUTROPHIL % (test code = NT%) 55.1 % 39.0-69.0 N IMMATURE GRANULOCYTE % (test 0.6 % 0.0-5.0 N code = IG%) LYMPHOCYTE % (test code = LY%) 29.5 % 25.0-55.0 N MONOCYTE % (test code = MO%) 10.6 % 0.0-10.0 H EOSINOPHIL % (test code = EO%) 3.5 % 0.0-5.0 N BASOPHIL % (test code = BA%) 0.7 % 0.0-1.0 N NUCLEATED RBC % (test code = 0.0 % 0-0 N NRBC%) NEUTROPHIL # (test code = NT#) 3.95 K/mm3 1.8-7.7 N IMMATURE GRANULOCYTE # (test 0.04 x10 3/uL 0-0.03 H code = IG#) LYMPHOCYTE # (test code = LY#) 2.11 K/mm3 1.0-5.0 N MONOCYTE # (test code = MO#) 0.76 K/mm3 0-0.8 N EOSINOPHIL # (test code = EO#) 0.25 K/mm3 0.0-0.5 N BASOPHIL # (test code = BA#) 0.05 K/mm3 0.0-0.2 N NUCLEATED RBC # (test code = 0.00 K/mm3 0.0-0.1 N NRBC#) MANUAL DIFF REQUIRED (test code NO = MDIFF) CBC W/AUTO [id number] 17:01:00 Test Item Value Reference Range Interpretation Comments WHITE BLOOD CELL (test code = K/mm3 4.5-12.5 WBC) RED BLOOD CELL (test code = RBC) mill/mm3 3.7-5.2 HEMOGLOBIN (test code = HGB) 12.6 gram/dL 11.5-15.5 N HEMATOCRIT (test code = HCT) 39.8 % 36.0-46.0 N MEAN CELL VOLUME (test code = fL 80-98 MCV) MEAN CELL HGB (test code = MCH) picogram 27.0-33.0 MEAN CELL HGB CONCETRATION (test gram/dL 33.0-36.0 code = MCHC) RED CELL DISTRIBUTION WIDTH % 11.6-16.2 (test code = RDW) RED CELL DISTRIBUTION WIDTH SD fL 37.0-51.0 (test code = RDW-SD) PLATELET COUNT (test code = PLT) K/mm3 150-450 MEAN PLATELET VOLUME (test code fL 6.7-11.0 = MPV) NEUTROPHIL % (test code = NT%) % 39.0-69.0 IMMATURE GRANULOCYTE % (test % 0.0-5.0 code = IG%) LYMPHOCYTE % (test code = LY%) % 25.0-55.0 MONOCYTE % (test code = MO%) % 0.0-10.0 EOSINOPHIL % (test code = EO%) % 0.0-5.0 BASOPHIL % (test code = BA%) % 0.0-1.0 NEUTROPHIL # (test code = NT#) K/mm3 1.8-7.7 LYMPHOCYTE # (test code = LY#) K/mm3 1.0-5.0 MONOCYTE # (test code = MO#) K/mm3 0-0.8 EOSINOPHIL # (test code = EO#) K/mm3 0.0-0.5 BASOPHIL # (test code = BA#) K/mm3 0.0-0.2 - PET/[id number] 14:59:00 FAX: Lambert Farrell MD [phone] [place]: B St: AYAN Name: BILL CHAMBERLAIN [facility] : 1940 Age/S: 78/F [address] [facility] Unit#: [id number] Loc: [place] [address] Phys: Lambert Canada MD Acct: [id number] Dis Date: Status: AYAN CLI PHONE #: [phone] Exam Date: 02/13/2019 1205 FAX #: [phone] Reason: RLL NODULE EXAMS: CPT CODE: [id number] PET/CT TUMOR [facility] [address] HISTORY: Right lower lobe lung nodule. COMPARISON: CT chest from May 15, 2010. Location: [facility]. PET/CT SCAN: 10.5 mCi of FDG administered. Images obtained from the skull base to the upper thighs 1 hour postinjection. Blood glucose level = 93 mg/dL. HEAD AND NECK: Intense uptake within the brain parenchyma limited evaluation. Physiologic pharyngeal uptake. CHEST: 1.1 cm lung nodule is pleural-based in the right lower lobe medially and is new from previous examinationwith SUV uptake ranging up to 5.1 is suspicious for malignancy. No other lung parenchymal mass or nodules. No pathologic hilar, mediastinal or axillary adenopathy or uptake. No chest wall or breast uptake is noted. ABDOMEN: No hepatic or adrenal metastases. No abnormal uptake within the pancreas or the spleen. Excretion from kidneys without abnormal uptake.No pathologic mesenteric, retroperitoneal or retrocrural adenopathy or uptake. Minimal excretion into the bowel. PELVIS: Excretion into the urinary bladder. No pelvic pathologic adenopathy. MUSCULOSKELETAL: No abnormal uptake. IMPRESSION: Ill-defined 1.1 cm pleural-based right medial lower lobe lung nodule is new from previous examination of 2010. SUV uptake ranging up to 5.1 suspicious for malignancy. No metastases. at 1452 Reported and signed by: Manuel Hu M.D. CC: Lambert Canada MD Technologist: Annel Cowart RT(N) Trnscrd Date/Time/By: 02/26/2019 (1459): By: [email or web address] Orig Print D/T: S: 02/26/2019 (1111) PAGE 1 Signed ReportCHEST 2 [id number] 11:42:00 [place] [address] Patient Name: BILL CHAMBERLAIN MR #: [id number] : 1940 Age/Sex: 78/F Req #: [id number] Adm Physician: Ordered by: RACHEL OLMOS MD Report #: [id number] Location: [facility] Room/Bed: Procedure: [id number] DX/CHEST 2 VIEWS Exam Date: 11/23/18 Exam Time: 1100 REPORT STATUS: Signed EXAMINATION: PA and lateral views of the chest. COMPARISON: June 27, 2018 CLINICAL HISTORY: Productive cough DISCUSSION: Lines/tubes: None. Lungs: The lungs are well inflated and clear. No pneumonia or pulmonary edema. Pleura: No pleural effusion or pneumothorax. Heart and mediastinum: The cardiomediastinal silhouette is normal. Bones and soft tissues: No acute bony abnormalities. Prior vertebral augmentation. Thoracic kyphosis. IMPRESSION: No acute cardiopulmonary abnormalities. Signed by: Dr. Morgan German M.D. on 11/23/2018 11:50 AM Dictated By: MORGAN GERMAN MD 1150 Transcribed By: KERI on 11/23/18 1150 COPY TO: RACHEL OLMOS MDTROPONIN-I 2018-11-22 04:20:00 Test Item Value Reference Range Interpretation Comments TROPONIN-I (test code = TROPI) <0.015 ng/mL 0-0.045 N COMMENTS TO AUDIO TECHNICIAN: COLLECT 3 HOURS AFTER PREVIOUS [id number] 22:26:00 Test Item Value Reference Range Interpretation Comments TROPONIN-I (test code = TROPI) <0.015 ng/mL 0-0.045 N COMMENTS TO AUDIO TECHNICIAN: COLLECT 3 HOURS AFTER PREVIOUS SAMPLEB-TYPE NATRIURETIC [id number] 13:40:00 Test Item Value Reference Range Interpretation Comments B-TYPE NATRIURETIC PEPTIDE 45.85 pgram/mL 0-100 N (test code = BNP) BASIC METABOLIC [id number] 13:23:00 Test Item Value Reference Range Interpretation Comments SODIUM (test code = 138 mmol/L 136-145 N NA) POTASSIUM (test code 4.2 mmol/L 3.5-5.1 N = K) CHLORIDE (test code = 102.0 mmol/L 98-107 N CL) CARBON DIOXIDE (test 30.0 mmol/L 21-32 N code = CO2) ANION GAP (test code 10.2 10-20 N = GAP) GLUCOSE (test code = 116 mg/dL 74-106 H GLU) BLOOD UREA NITROGEN 23 mg/dL 7-18 H (test code = BUN) GLOMERULAR FILTRATION 54 mL/min >=60 Estima alec GFR by RATE (test code = using Mabel fied MDRD GFR) formula.Chronic kidney disease is defined as eith er kidney damageor GFR <60 mL/min/1.73 m2 for >3 months. CREATININE (test code 1.00 mg/dL 0.55-1.02 N Note change in = CREAT) reference range due to change in reagent. BUN/CREATININE RATIO 23.0 10-20 H (test code = BUN/CREA) CALCIUM (test code = 9.5 mg/dL 8.5-10.1 N CA) HEPATIC FUNCTION [id number] 13:23:00 Test Item Value Reference Range Interpretation Comments TOTAL PROTEIN (test 7.3 gram/dL 6.4-8.2 N code = PROT) ALBUMIN (test code = 3.3 g/dL 3.4-5.0 L ALB) GLOBULIN (test code = 4.0 gram/dL 2.7-4.2 N GLOB) ALBUMIN/GLOBULIN RATIO 0.8 0.75-1.50 N (test code = A/G) BILIRUBIN TOTAL (test 0.60 mg/dL 0.0-1.0 N code = BILT) BILIRUBIN DIRECT (test 0.20 mg/dL 0.0-0.20 N code = BILD) SGOT/AST (test code = 27 IUnit/L 15-37 N AST) SGPT/ALT (test code = 14 IUnit/L 12-78 N ALT) ALKALINE PHOSPHATASE 69 IUnit/L 45-117 N Note change in TOTAL (test code = reference range due ALKP) to change in reagent. [id number] 13:23:00 Test Item Value Reference Range Interpretation Comments LIPASE (test code = LIP) 358 U/L 73.0-393.0 N [id number] 13:23:00 Test Item Value Reference Range Interpretation Comments TROPONIN-I (test code = TROPI) <0.015 ng/mL 0-0.045 N - XR CHEST 1 [id number] 13:15:00 FAX: Orestes Washington [place]: St: REG Name: BILL CHAMBERLAIN [facility] : 1940 Age/S: 78/F [address] [facility] Unit#: [id number] Loc: [place] [address] Phys: Orestes [place] MD Acct: [id number] Dis Date: Status: REG ER PHONE #: [phone] Exam Date: 11/21/2018 1235 FAX #: [phone] Reason: CHEST PAIN EXAMS: CPT CODE: [id number] XR CHEST 1 V 79736 REASON FOR EXAM: CHEST PAIN EXAM ORDER DATE: 11/21/2018 12:05 PM Ordering Valentin.: Orestes Washington MD PROCEDURE:- XR CHEST 1 V COMPARISON: 08/01/2010 FINDINGS: Portable AP frontal view of the chest obtained at 12:35 PM shows patchy airspace opacity of the left base. There is no evidence of effusion. The heart size is minimally enlarged. Pulmonary vasculatures are unremarkable. IMPRESSION: Moderate hyperinflated lungs suggestive of COPD with patchy atelectasis of the left base at 1315 Reported and signed by: Robel Oliveros M.D. CC: Orestes Fonseca MD Technologist: Roxanne Jane(Kristina) Trnscrd Date/Time/By: 11/21/2018 (1266) : By: Kelvin Orig Print D/T: S: 11/21/2018 (2250) PAGE 1 Signed ReportPROTHROMBIN [id number] 13:13:00 Test Item Value Reference Range Interpretation Comments PROTHROMBIN TIME 12.3 seconds 9.0-14.0 N PATIENT (test code = PTP) INTERNATIONAL NORMAL 1.1 0.8-1.2 N The the rapeutic range RATIO (test code = for oral INR) anticoagulant t herapy formost indicat ions is an internati onal normalized rati o (INR)of between 2.0 and 3.0. The recommended therapeutic INR range for various cli nical situations is l isted below: Clinical Situat ion INR range Pulmonary embol ism treatment (2.0-3.0)Venou s thrombosis treatmentVenous thrombosis prophylaxis (hi gh risk surgery)Prevent ion of systemic emboli sm from: A cute myocardial infa rction Valvula r heart disease Atrial fibrilla tion Mechanical pros thetic heart valves (2.5-3.5) IS PATIENT ON ANTICOAGULANTS? NTHROMBOPLASTIN TIME [id number] 13:13:00 Test Item Value Reference Range Interpretation Comments THROMBOPLASTIN TIME PARTIAL 29.2 seconds 25.0-36.5 N (test code = PTT) IS PATIENT ON ANTICOAGULANTS? NBASIC METABOLIC [id number] 13:12:00 Test Item Value Reference Range Interpretation Comments SODIUM (test code = NA) 138 mmol/L 136-145 N POTASSIUM (test code = K) 4.2 mmol/L 3.5-5.1 N CHLORIDE (test code = CL) 102.0 mmol/L 98-107 N CARBON DIOXIDE (test code = CO2) mmol/L 21-32 ANION GAP (test code = GAP) 10-20 GLUCOSE (test code = GLU) mg/dL 74-106 BLOOD UREA NITROGEN (test code = mg/dL 7-18 BUN) GLOMERULAR FILTRATION RATE (test mL/min >=60 code = GFR) CREATININE (test code = CREAT) mg/dL 0.55-1.02 BUN/CREATININE RATIO (test code 10-20 = BUN/CREA) CALCIUM (test code = CA) mg/dL 8.5-10.1 HEPATIC FUNCTION [id number] 13:12:00 Test Item Value Reference Range Interpretation Comments TOTAL PROTEIN (test code = PROT) gram/dL 6.4-8.2 ALBUMIN (test code = ALB) g/dL 3.4-5.0 GLOBULIN (test code = GLOB) gram/dL 2.7-4.2 ALBUMIN/GLOBULIN RATIO (test code = 0.75-1.50 A/G) BILIRUBIN TOTAL (test code = BILT) mg/dL 0.0-1.0 BILIRUBIN DIRECT (test code = BILD) mg/dL 0.0-0.20 SGOT/AST (test code = AST) IUnit/L 15-37 SGPT/ALT (test code = ALT) IUnit/L 12-78 ALKALINE PHOSPHATASE TOTAL (test IUnit/L 45-117 code = ALKP) [id number] 13:12:00 Test Item Value Reference Range Interpretation Comments LIPASE (test code = LIP) U/L 73.0-393.0 [id number] 13:12:00 Test Item Value Reference Range Interpretation Comments TROPONIN-I (test code = TROPI) ng/mL 0-0.045 CBC W/O [id number] 12:57:00 Test Item Value Reference Range Interpretation Comments WHITE BLOOD CELL (test code = 8.4 K/mm3 4.5-12.5 N WBC) RED BLOOD CELL (test code = 3.73 mill/mm3 3.7-5.2 N RBC) HEMOGLOBIN (test code = HGB) 11.2 gram/dL 11.5-15.5 L HEMATOCRIT (test code = HCT) 35.4 % 36.0-46.0 L MEAN CELL VOLUME (test code = 94.9 fL 80-98 N MCV) MEAN CELL HGB (test code = MCH) 30.0 picogram 27.0-33.0 N MEAN CELL HGB CONCETRATION 31.6 gram/dL 33.0-36.0 L (test code = MCHC) RED CELL DISTRIBUTION WIDTH 12.4 % 11.6-16.2 N (test code = RDW) PLATELET COUNT (test code = 323 K/mm3 150-450 N PLT) MEAN PLATELET VOLUME (test code 9.7 fL 6.7-11.0 N = MPV) CHEST 2 [id number] 15:36:00 [place] [address] Patient Name: BILL CHAMBERLAIN MR #: [id number] : 1940 Age/Sex: 77/F Req #: [id number] Adm Physician: Ordered by: RACHEL OLMOS MD Report #: [id number] Location: [facility] Room/Bed: Procedure: [id number] DX/CHEST 2 VIEWS Exam Date: 06/27/18 Exam Time: 1435 REPORT STATUS: Signed EXAMINATION: CHEST 2 VIEWS INDICATION: Bronchiectasis with acute exacerbation. COMPARISON: Chest radiograph 05/31/2017. FINDINGS: TUBES and LINES: None. LUNGS: Lungs are mildly hyperinflated. Resolution of opacity in the left lower lobe. Mild patchy opacity within the lingula. No evidence of pulmonary edema. PLEURA: No pleural effusion or pneumothorax. HEART AND MEDIASTINUM: The cardiomediastinal silhouette is unremarkable. There are atherosclerotic calcifications within the aorta. BONES AND SOFT TISSUES: No acute osseous abnormality. Status post vertebral augmentation at two contiguous midthoracic vertebral bodies. Diffuse osteopenia. UPPER ABDOMEN: No free air under the diaphragm. IMPRESSION: Mild patchy opacity within the lingula, which may represent atelectasis or early pneumonia in the appropriate clinical setting. Suggest follow-up chest radiograph in 6-8 weeks to assess for resolution. Signed by: Dr. Sonal Hdez MD on 06/27/2018 3:40 PM Dictated By: SONAL HDEZ MD 39 Transcribed By: KERI on COPY TO: RACHEL OLMOS MD Differential Total Cells [id number] 08:59:00 Test Item Value Reference Range Interpretation Comments Differential Total Cells Counted (test 100 code = Differential Total Cells Counted) [facility]ut[facility] (Manual)2017-06-05 08:59:00 Test Item Value Reference Range Interpretation Comments Neutrophils % (Manual) (test code = 81 40-74 H 26614-7) [facility]bergBand Neutrophils %2017-06-05 08:59:00 Test Item Value Reference Range Interpretation Comments Band Neutrophils % (test code = 764-1) 2 [facility]bergLymphocytes % (Manual)2017-06-05 08:59:00 Test Item Value Reference Range Interpretation Comments Lymphocytes % (Manual) (test code = 9 19-48 L 737-7) [facility]bergMonocytes % (Manual)2017-06-05 08:59:00 Test Item Value Reference Range Interpretation Comments Monocytes % (Manual) (test code = 8 3.4-9.0 744-3) [facility]bergPlatelet [id number] 08:59:00 Test Item Value Reference Range Interpretation Comments Platelet Estimate (test code = ADEQUATE 62052-6) [facility]bergPlatelet Morphology [id number] 08:59:00 Test Item Value Reference Range Interpretation Comments Platelet Morphology Comment (test code NORMAL = 01671-3) [facility]bergRed Cell Morphology [id number] 08:59:00 Test Item Value Reference Range Interpretation Comments Red Cell Morphology Comment (test code NORMAL = 6742-1) [facility] [id number] 07:32:00 Test Item Value Reference Range Interpretation Comments Sodium Level (test code = 2951-2) 139 136-145 [facility]bergPotassium [id number] 07:32:00 Test Item Value Reference Range Interpretation Comments Potassium Level (test code = 2823-3) 4.5 3.5-5.1 [facility]bergChloride [id number] 07:32:00 Test Item Value Reference Range Interpretation Comments Chloride Level (test code = 2075-0) 98 98-107 [facility] KlebergCarbon Dioxide [id number] 07:32:00 Test Item Value Reference Range Interpretation Comments Carbon Dioxide Level (test code = 37 22-29 H 2027-) [facility] KlebergAnion [id number] 07:32:00 Test Item Value Reference Range Interpretation Comments Anion Gap (test code = 60754-2) 8.5 8-16 [facility] KlebergBlood Urea [id number] 07:32:00 Test Item Value Reference Range Interpretation Comments Blood Urea Nitrogen (test code = 21 7-26 3094-0) [facility] KlebergCreatinine2018-03-10 07:32:00 Test Item Value Reference Range Interpretation Comments Creatinine (test code = 2160-0) 0.56 0.57-1.11 L [facility]bergBUN/Creatinine [id number] 07:32:00 Test Item Value Reference Range Interpretation Comments BUN/Creatinine Ratio (test code = 38 6-25 H 3097-3) [facility] KlebergEstimat Glomerular Filtration Rate 2017-06-05 07:32:00 Test Item Value Reference Range Interpretation Comments Estimat Glomerular Filtration Rate 60- >60 (test code = 64646-4) Ranges were taken from the National Kidney Disease Education Program and the National Kidney Foundation literature.Reference ranges:60 or greater: Chvvya96- 59 (for 3 consecutive months): Chronic kidneydisease 15 or less: Kidney failure [facility]bergGlucose [id number] 07:32:00 Test Item Value Reference Range Interpretation Comments Glucose Level (test code = DXV2386) 76 74-118 [facility] KlebergCalcium [id number] 07:32:00 Test Item Value Reference Range Interpretation Comments Calcium Level (test code = 25028-9) 8.3 8.4-10.2 L [facility] KlebergWhite Blood [id number] 07:10:00 Test Item Value Reference Range Interpretation Comments White Blood Count (test code = 6690-2) 9.47 4.8-10.8 [facility] KlebergRed Blood [id number] 07:10:00 Test Item Value Reference Range Interpretation Comments Red Blood Count (test code = 789-8) 3.58 3.6-5.1 L [facility] KlebergHemoglobin2018-03-10 07:10:00 Test Item Value Reference Range Interpretation Comments Hemoglobin (test code = 95710-9) 10.9 12.0-16.0 L [facility] KlebergHematocrit2018-03-10 07:10:00 Test Item Value Reference Range Interpretation Comments Hematocrit (test code = 4544-3) 33.8 34.2-44.1 L [facility] KlebergMean Corpuscular [id number] 07:10:00 Test Item Value Reference Range Interpretation Comments Mean Corpuscular Volume (test code = 94.4 81-99 787-2) [facility]bergMean Corpuscular [id number] 07:10:00 Test Item Value Reference Range Interpretation Comments Mean Corpuscular Hemoglobin (test code 30.4 28-32 = 785-6) [facility] KlebergMean Corpuscular Hemoglobin Concent 2017-06-05 07:10:00 Test Item Value Reference Range Interpretation Comments Mean Corpuscular Hemoglobin Concent 32.2 31-35 (test code = 786-4) [facility] KlebergRed Cell Distribution [id number] 07:10:00 Test Item Value Reference Range Interpretation Comments Red Cell Distribution Width (test code 14.6 11.7-14.4 H = 57017-0) [facility] KlebergPlatelet [id number] 07:10:00 Test Item Value Reference Range Interpretation Comments Platelet Count (test code = 777-3) 337 140-360 [facility] KlebergNeutrophils (%) (Auto)2017-06-05 07:10:00 Test Item Value Reference Range Interpretation Comments Neutrophils (%) (Auto) (test code = 70.6 38.7-80.0 64499-3) [facility] KlebergLymphocytes (%) (Auto)2017-06-05 07:10:00 Test Item Value Reference Range Interpretation Comments Lymphocytes (%) (Auto) (test code = 13.8 18.0-39.1 L 736-9) [facility]bergMonocytes (%) (Auto)2017-06-05 07:10:00 Test Item Value Reference Range Interpretation Comments Monocytes (%) (Auto) (test code = 7.2 4.4-11.3 5905-5) [facility]bergEosinophils (%) (Auto)2017-06-05 07:10:00 Test Item Value Reference Range Interpretation Comments Eosinophils (%) (Auto) (test code = 0.8 0.0-6.0 713-8) [facility]bergBasophils (%) (Auto)2017-06-05 07:10:00 Test Item Value Reference Range Interpretation Comments Basophils (%) (Auto) (test code = 0.6 0.0-1.0 706-2) [facility] KlebergIM GRANULOCYTES %2017-06-05 07:10:00 Test Item Value Reference Range Interpretation Comments IM GRANULOCYTES % (test code = IM 7.0 0.0-1.0 H GRANULOCYTES %) [facility]bergNeutrophils # (Auto)2017-06-05 07:10:00 Test Item Value Reference Range Interpretation Comments Neutrophils # (Auto) (test code = 6.7 2.1-6.9 751-8) [facility] KlebergLymphocytes # (Auto)2017-06-05 07:10:00 Test Item Value Reference Range Interpretation Comments Lymphocytes # (Auto) (test code = 1.3 1.0-3.2 00747-9) [facility]bergMonocytes # (Auto)2017-06-05 07:10:00 Test Item Value Reference Range Interpretation Comments Monocytes # (Auto) (test code = 742-7) 0.7 0.2-0.8 [facility]bergEosinophils # (Auto)2017-06-05 07:10:00 Test Item Value Reference Range Interpretation Comments Eosinophils # (Auto) (test code = 0.1 0.0-0.4 711-2) [facility]bergBasophils # (Auto)2017-06-05 07:10:00 Test Item Value Reference Range Interpretation Comments Basophils # (Auto) (test code = 704-7) 0.1 0.0-0.1 [facility] KlebergAbsolute Immature Granulocyte (auto 2017-06-05 07:10:00 Test Item Value Reference Range Interpretation Comments Absolute Immature Granulocyte (auto 0.66 0-0.1 H (test code = Absolute Immature Granulocyte (auto) [facility] KlebergVancomycin Level [id number] 11:10:00 Test Item Value Reference Range Interpretation Comments Vancomycin Level Trough (test code = 10.5 5.0-10.0 4092-3) Results called to DANIEL POWERS at 1109 on 06/04/17 by Janny Durán. RB OK.[facility] KlebergMetamyelocytes %2017-06-03 08:24:00 Test Item Value Reference Range Interpretation Comments Metamyelocytes % (test code = 740-1) 2 0-0 H [facility] KlebergMyelocytes %2017-06-03 08:24:00 Test Item Value Reference Range Interpretation Comments Myelocytes % (test code = 749-2) 1 0-0 H [facility] KlebergReactive Ulaqgsvcjcg6640-35-55 08:24:00 Test Item Value Reference Range Interpretation Comments Reactive Lymphocytes (test code = 2 28265-9) [facility] KlebergBlast Cells %2017-06-03 08:24:00 Test Item Value Reference Range Interpretation Comments Blast Cells % (test code = 66999-6) 1 [facility] KlebergHypochromasia2018-03-08 08:24:00 Test Item Value Reference Range Interpretation Comments Hypochromasia (test code = 728-6) SLIGHT [facility] KlebergBlood [id number] 06:03:00 Test Item Value Reference Range Interpretation Comments Blood Culture (test NO GROWTH AFTER 5 code = 34429549) DAYS, FINAL REPORT [facility] KlebergAnisocytosis2018-03-07 08:52:00 Test Item Value Reference Range Interpretation Comments Anisocytosis (test code = 702-1) SLIGHT [facility] KlebergTotal Wkqsyuspv9765-42-33 06:39:00 Test Item Value Reference Range Interpretation Comments Total Bilirubin (test code = 1975-2) 0.3 0.2-1.2 [facility] KlebergAspartate Amino Transf (AST/SGOT) 2017-06-01 06:39:00 Test Item Value Reference Range Interpretation Comments Aspartate Amino Transf (AST/SGOT) (test 8 5-34 code = Aspartate Amino Transf (AST/SGOT)) [facility] KlebergAlanine Aminotransferase (ALT/SGPT) 2017-06-01 06:39:00 Test Item Value Reference Range Interpretation Comments Alanine Aminotransferase (ALT/SGPT) 10 0-55 (test code = 1742-6) [facility] KlebergTotal [id number] 06:39:00 Test Item Value Reference Range Interpretation Comments Total Protein (test code = 2885-2) 5.3 6.5-8.1 L [facility] KlebergAlbumin2018-03-06 06:39:00 Test Item Value Reference Range Interpretation Comments Albumin (test code = 1751-7) 2.0 3.5-5.0 L [facility] KlebergGlobulin2018-03-06 06:39:00 Test Item Value Reference Range Interpretation Comments Globulin (test code = 28147-4) 3.3 2.3-3.5 [facility] KlebergAlbumin/Globulin Wanjy9074-86-28 06:39:00 Test Item Value Reference Range Interpretation Comments Albumin/Globulin Ratio (test code = 0.6 0.8-2.0 L 1759-0) [facility] KlebergAlkaline Dhhjaiatabj6980-93-07 06:39:00 Test Item Value Reference Range Interpretation Comments Alkaline Phosphatase (test code = 53 40-150 6768-6) [facility] KlebergPoikilocytosis2018-03-05 08:35:00 Test Item Value Reference Range Interpretation Comments Poikilocytosis (test code = 779-9) SLIGHT [facility] KlebergMacrocytosis2018-03-02 11:03:00 Test Item Value Reference Range Interpretation Comments Macrocytosis (test code = 738-5) SLIGHT [facility] KlebergLactic Acid [id number] 09:40:00 Test Item Value Reference Range Interpretation Comments Lactic Acid Level (test code = Lactic 14.2 4.5-19.8 Acid Level) [facility] KlebergCHEST 2 VIEWS [facility] [address] [place] [address] Patient Name: BILL CHAMBERLAIN MR #: [id number] : 1940 Age/Sex: 76/F Req #: [id number] Adm Physician: RACHEL OLMOS MD Ordered by: RACHEL OLMOS MD Report #:[id number] Location: MED/SURG Room/Bed: [facility] Procedure: [id number] DX/CHEST 2 VIEWS Exam Date: Exam Time: REPORT STATUS: Signed PROCEDURE: CHEST 2 VIEWS TECHNIQUE: PA and lateral chest INDICATION: Pneumonia COMPARISON: [facility], DX, CHEST SINGLE (PORTABLE), 05/31/2017, 6:25. FINDINGS: Small pleural effusions bilaterally. Upper lung zones are clear. Upper lung zones demonstrate a relative paucity of interstitial lung markings in association with increased AP chest diameter. Normal heart size. No grossly intact skeleton. Midthoracic kyphoplasty. CONCLUSION: 1. Airspace opacity in the left lower lobe has improved relative to May 31 consistent with resolving pneumonia. 2. Decrease in left pleural effusion. Slightly increased right pleural effusion volume. 3. Increased AP chest diameter and relative paucity of interstitial upper zone lung markings suggesting emphysema. Dictated by: Becky Jaramillo M.D. on 06/03/2017 at 13:11 Electronically approved by: Becky Jaramillo M.D. on 06/03/2017 at 13:11 Dictated By: BECKY JARAMILLO MD 1311 Transcribed By: SHELLIE on 06/03/17 1311 COPY TO: RACHEL OLMOS [facility] SINGLE (PORTABLE) [place] [address] Patient Name: BILL CHAMBERLAIN MR #: [id number] : 1940 Age/Sex: 76/F Req #: [id number] Adm Physician: RACHEL OLMOS MD Ordered by: RACHEL OLMOS MD Report #:[id number] Location: [facility] Room/Bed: [place] [address] Procedure: [id number] DX/CHEST SINGLE (PORTABLE) Exam Date: Exam Time: REPORT STATUS: Signed EXAM: CHEST SINGLE (PORTABLE), AP 1 view INDICATION: Left pneumonia COMPARISON: AP view of the chest May 29, 2017 FINDINGS: LINES/TUBES: None LUNGS: Left lower lobe consolidation, better seen on upright view PLEURA: Stable moderate left pleural effusion. HEART AND MEDIASTINUM: Normal size and contour. BONES AND SOFT TISSUES: No acute findings. IMPRESSION: Left lower lobe pneumonia with associated effusion. Signed by: Dr. Nancy Jackson M.D. on 05/31/2017 6:46 AM Dictated By: NANCY JACKSON MD 0646 Transcribed By: KERI on 05/31/17645 COPY TO: RACHEL OLMOS [facility] SINGLE (PORTABLE) [place] [address] Patient Name: BILL CHAMBERLAIN MR #: [id number] : 1940 Age/Sex: 76/F Req #: [id number] Adm Physician: RACHEL OLMOS MD Ordered by: RACHEL OLMOS MD Report #:[id number] Location: [facility] Room/Bed: [place] [address] Procedure: [id number] DX/CHEST SINGLE (PORTABLE) Exam Date: 05/29/17 Exam Time: 0555 REPORT STATUS: Signed EXAM: CHEST SINGLE (PORTABLE), AP 1 view INDICATION: Follow-up on pneumonia COMPARISON: None FINDINGS: LINES/TUBES: None LUNGS: Left lower lobe atelectasis. PLEURA: Moderate left pleural effusion. HEART AND MEDIASTINUM: Normal size and contour. BONES AND SOFT TISSUES: No acute findings. Mid thoracic spine vertebroplasty changes. IMPRESSION: Left lobe atelectasis with adjacent moderate pleural effusion. This could represent pneumonia in the proper clinical setting. Signed by: Dr. Nancy Jackson M.D. on 05/29/2017 6:22 AM Dictated By: NANCY JACKSON MD 1 Transcribed By: KERI on 05/29/17621 COPY TO: RACHEL OLMOS MD
[2019-09-21 18:37] VITALS: TEMP 98.7
[2019-09-21 18:38] VITALS: O2SAT 99
[2019-09-21 18:40] VITALS: BP 121/60
== END 2019-09-21 18:13 | disposition home or self-care (01) ==
LOC: ER 16:32
DX: I82.402 Acute embolism and thrombosis of unspecified deep veins of left lower extremity (principal); Z88.0 Allergy status to penicillin
CPT/HCPCS: 36415; 80048; 85025; 85610; 85730; 93971; 99284

== ENCOUNTER 2020-07-01 12:32 | Emergency (ER) | payer OTHER ==
--- OUTSIDE RECORDS SUMMARY | 2020-07-01 12:37 | XMS REPORT | Continuity of Care Document ---
:1940 Author Organization [facility] t Address [address] [place] [address] Care Team Providers Name Role Phone AMARILIS IRENE Primary Care Physician Rey Prather Attending Clinician Kristina Palma Attending Clinician Maddy Galloway Attending Clinician Tarah Avila Attending Clinician Mary Attending Clinician AMARILIS Attending Clinician Unavailable Maddy Galloway Admitting Clinician Tarah Avila Admitting Clinician Mary Admitting Clinician AMARILIS Admitting Clinician Unavailable Payers Payer Name Policy Type Policy Number Effective Date Expiration Date S ource Medicare A & B [id number] 2005 [place] Dasilva cristian 00:00:[facility] Problems Condition Condition Condition Status Onset Resolution Last Treating Co mments Source Name Details Category Date Date Treatment Clinician Date LUNG Diagnosis Active 2019-032020-02-07 [facility] oria CANCER 1-11 11:53:00 l FOLLOW UP LUNG 00:00: Talha CANCER 00 FOLLOW UP Active 02/07/2020 [facility] DX: Diagnosis Active 2019-032020-02-01 Mem oria C34.31=MAL 0-13 11:11:00 l IGNANT DX: 00:00: Talha 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 [facility] PNEUMONIA, Diagnosis Active 2020-05-24 [facility] SEPSIS 08-07 21:56:00 l 00:00: [place] PNEUMONIA, 00 SEPSIS Active 08/08/2019 [facility] SEPSIS Diagnosis Active 2019-08-08 Mem oria 08-07 13:58:00 l SEPSIS 00:00: [place] 00 Active 08/08/2019 [facility] C34.31 = Diagnosis Active 2019-08-18 M emoria MALIGNANT 07-24 14:06:00 l NEOPLASM C34.31 = 00:00: Herm nancy OF LOWER MALIGNANT 00 LOB NEOPLASM OF LOWER LOB Active 07/25/2019 [facility] FEMORAL Diagnosis Active 2019-07-27 Me moria NECK 07-18 21:47:00 l FRACTURE FEMORAL 00:00: Zara nn NECK 00 FRACTURE Active 07/19/2019 [facility] FALL Diagnosis Active 2019-07-19 Mem oria 07-18 18:57:00 l FALL 00:00: [place] 00 Active 07/19/2019 [facility] ADENOCARCI Diagnosis Active 2019[facility]04[facility] NOMA OF 04-10 13:41:00 l THE RIGHT 00:00: [place] LUNG ADENOCARCI 00 NOMA OF THE RIGHT LUNG Active 04/10/2019 [facility] RIGHT LUNG Diagnosis Active 2019-04-07 [facility] CANCER 03-31 12:55:00 l CONSULT RIGHT 00:00: [place] LUNG 00 CANCER CONSULT Active 03/31/2019 [facility] Pneumonia Pneumonia Problem Active [facility] Disease of Problem Active 2020-02-10 M emoria thyroid 00:04:16 l gland Disease Talha (disorder) of thyroid gland (disorder) Active Problem 02/10/2020 [facility] MALIGNANT Diagnosis Active 2020-02-01 Memoria NEOPLASM 11:11:00 l OF LOWER [place] LOBE, MALIGNANT RIGHT NEOPLASM OF LOWER LOBE, RIGHT Active [facility] FRACTURE Diagnosis Active 2019-07-27 M emoria OF UNSP 21:47:00 l PART OF FRACTURE Zara nn NECK OF OF UNSP UNSP FE PART OF NECK OF UNSP FE Active [facility] PNEUMONIA, Diagnosis Active 2020-05-24 Memoria UNSPECIFIE 21:56:00 l D ORGANISM Mike n PNEUMONIA, UNSPECIFIE D ORGANISM Active [facility] SEPSIS, Diagnosis Active 2020-05-24 Me moria UNSPECIFIE 21:56:00 l D ORGANISM SEPSIS, Her ling UNSPECIFIE D ORGANISM Active [facility] FX UNSP Diagnosis Active 2019-10-09 Me moria PART OF NK 10:38:00 l OF L FEMR, FX UNSP Her ling SUBS FOR C PART OF NK OF L FEMR, SUBS FOR C Active [facility] MALIGNANT Diagnosis Active 2020-02-07 Memoria NEOPLASM 11:53:00 l OF UPPER [place] LOBE, MALIGNANT RIGHT NEOPLASM OF UPPER LOBE, RIGHT Active [facility] Allergies, Adverse Reactions, Alerts Allergy Allergy Status Severity Reaction(s) Onset Inactive Treating Comm ents Source Name Type Date Date Clinician midazola DA Active MO 2018-03 [facility] m 2-05 [facility] 00:[facility]: e 00 [facility] Procaine DA Active U [facility] HCl 8 [facility] 00:00: e 00 [facility] Haloperi DA Active U 2019-0 [facility] dol 8-26 [place] Lactate 00:00: e 00 [facility] Penicill DA Active U 2019-0 [facility] ins 8- [place] 00:[facility]: e 00 [facility] Beef FA Active U 2019-0 [facility] Containi 8-26 [place] ng 00:00: e Products 00 Medical Center codeine DA Active U 2019-0 [facility] 8-26 [place] 00:00: e 00 [facility] mesalami DA Active U 2019-0 [facility] ne 11-21 [place] 00:00: e 00 [facility] diethylt DA Active U 2019-0 [facility] oluamide 11-21 [place] 00:00: e 00 [facility] tetanus DA Active U 2018-0 [facility] immune 11-21 [place] globulin 00:00: e 00 [facility] celery FA Active SV 2018-0 [facility] 11-21 [place] 00:00: e 00 [facility] Morphine Allergy Active 2017-[address] [facility] 00:[facility]: Patient e 00 [facility] Procaine Allergy Active 2011-[address] [facility] HCl to 5-20 [facility]: Patient e 00 [facility] Penicill Allergy Active 2011-[address] [facility] in to 5-20 [facility] 00:[facility]: Patient e 00 [facility] Procaine DA Active U 2010-0 [facility] HCl 2-18 [place] 00:00: e 00 [facility] Haloperi DA Active U 2010-0 [facility] dol 2-18 [place] Lactate 00:00: e 00 [facility] Penicill DA Active U 2010-0 [facility] ins 2-18 [place] 00:00: e 00 [facility] Beef FA Active U 2010-0 [facility] Containi 2-18 [place] ng 00:00: e Products 00 [facility] Center codeine DA Active U 2010-0 [facility] 2-18 [place] 00:00: e 00 [facility] mesalami DA Active U 2010-0 [facility] ne 2-18 [place] 00:00: e 00 [facility] Center diethylt DA Active U 2010-0 [facility] oluamide 2-18 [place] 00:00: e 00 [facility] Center tetanus DA Active U 2010-0 [facility] immune 2-18 [place] globulin 00:00: e 00 [facility] celery FA Active SV 2010-0 [facility] 2-18 [place] 00:00: e 00 [facility] BLACK DA Active U 2011-0 [facility] PEPPER 2-18 [place] 00:00: e 00 [facility] PAINT DA Active U 2009-0 [facility] 3-30 [place] 00:00: e 00 [facility] Center TREES DA Active U 2009-0 [facility] 3-30 [facility] 00:[facility]: e 00 [facility] PEAS DA Active U 2009-0 [facility] 2-05 [place] 00:00: e 00 [facility] Center codeine codeine Active Memoria l [place] penicill penicill Active Memori a in in l [place] tetanus tetanus Active Memoria toxoid toxoid l [place] Social History Social Habit Start Date Stop Date Quantity Comments Source Social History 2019-08-09 2019-08-09 [facility] H ermann 04:53:14 04:53:14 Medications Ordered Filled Start Stop Current Ordering Indication Dosage Frequency Signature Comments Components Source Medication Medication Date Date Medication? Clinician (SIG) Name Name Mark 2019-03 Yes Notes: Memori a 300 -02 (Same l injectable 23:00: as:Omnipaq H ermann solution 00 ue 300). WASTE: F/P - Black; E - [employer] Symbicort Yes 2 puff, Memor ia 80/4.5 6-03 INHALATION l inhalation 16:43: , BID, 0 Her ling aerosol 00 Refill(s) with adapter tramadol Yes 50 mg = 1 Ravindra shankar hydrochlori 5-15 tab, PO, l de 50 MG 18:11: Q4H, PRN Zara nn Oral Tablet 00 Pain, X 10 day, # 60 tab, 0 Refill(s) Cefuroxime Yes 500 mg = 1 M emoria 500 MG Oral 5-15 tab, PO, l Tablet 18:09: BID, X 7 [place] [Ceftin] 00 day, # 14 tab, 0 Refill(s), Pharmacy: [id number] linezolid Yes 600 mg = 1 Me moria 600 MG Oral 5-15 tab, PO, l Tablet 18:09: Q12H, X 7 Mike n [Zyvox] 00 day, # 14 tab, 0 Refill(s), Pharmacy: [id number] vancomycin No 2001 mg: Me moria + Sodium 5-15 infuse l Chloride 01:00: over 2.5 Zara nn 0.9% IV 250 00 hours For mL adult patients only: Round to nearest 250 mg per Medical Staff approval MEDICATION WASTE Product Size: 1000 mg Product Wasted: ___ mg Attn:KARRI-V 2020-0 No Attn:KARRI- Sera ancomycin 5-15 Vancomycin l trough 00:00: trough [place] reminder 00 reminder 08/10/19 @ 08/10/19 @ 19:30 19:30 *, Attn:RN, Drug form: MISC, Route: MISC, ONCE, 08/10/19 19:00:00 CDT, Stop date: 08/10/19 19:00:00 CDT, 0 Mupirocin 2020-0 No 1 appl, Memor ia 5-14 Route: l 02:00: NASAL, [place] 00 Q12H, Drug form: OINT, Start date: 08/09/19 21:00:00 CDT, Duration: 5 day, Stop date: 08/14/19 9:00:00 CDT, MRSA Decoloniza tion, 0 vancomycin 2020-0 No 2000 mg: Me moria + Sodium 5-13 infuse l Chloride 22:00: over 2.5 Zara nn 0.9% IV 250 00 hours For mL adult patients only: Round to nearest 250 mg per Medical Staff approval MEDICATION WASTE Product Size: 1000 mg Product Wasted: ___ mg Vancomycin 2020-0 No Vancomycin [facility] Pharmacy l Dosing 16:00: Dosing Talha Protocol - 00 Protocol - BERNARDA BERNARDA, Reminder, Drug form: MISC, Route: MISC, ONCALL, 08/09/19 11:00:00 CDT, Stop date: 08/14/19 23:59:00 CDT, 0 Naproxen 2020-0 No 500 mg, 1 Ravindra shankar 5-13 tab, l 14:53: Route: PO, Talha Drug form: TAB, BID, Dosing Weight 54.545, kg, PRN Pain Score 4-6, Start date: 08/09/19 9:53:00 CDT, Duration: 30 day, Stop date: 09/08/19 9:52:00 CDT, 0 cefepime 2020-0 No Notes: Memoria 5-13 (Same As: l 08:00: Maxipime) MEDICATION WASTE Product Size: 1000 mg Product Wasted: ___ mg meloxicam 2019-0 No 15 mg = 1 Mem oria 15 mg oral 5-13 tab, PO, l tablet 02:04: Daily Robitussin 2019-0 Yes 10 mL, PO, M emoria DM Sugar 5-13 Q6H, PRN l Free 02:04: Cough/Lars estion, 0 Refill(s) Acetaminoph Yes 650 mg = 2 Memoria en 325 MG 5-13 tab, PO, l Oral Tablet 02:04: Q4H, PRN He [Tylenol] 00 Pain Vitamin C Yes 500 mg = 1 Me moria 500 mg oral 5-13 tab, PO, l tablet 02:04: Daily Vancomycin 0 No 1 ea, Memori a 5-12 Route: l 22:00[facility], Dosing Weight 54.545, kg, Start date: 08/08/19 17:00:00 CDT, Duration: 7 day, Stop date: 08/15/19 16:59:00 CDT, Pharmacy to dose, ABX Indication : Pneumonia vancomycin No 2000 mg: Me moria + Sodium 5-12 infuse l Chloride 22:00: over 2.5 Zara nn 0.9% IV 250 00 hours For mL adult patients only: Round to nearest 250 mg per Medical Staff approval MEDICATION WASTE Product Size: 1000 mg Product Wasted: ___ mg Tylenol 0 No Notes: Do Memor ia 5-12 not exceed l 21:15: 4 gm/day. (Same as: Tylenol) D5LR 1,000 2019-0 No 1,000 mL, Me moria mL 5-12 Rate: 75 l 21:12: ml/hr, Infuse over: 13.3 hr, Route: IV, Dosing Weight 54.545 kg, Total Volume: 1,000, Start date: 08/08/19 16:12:00 CDT, Duration: 30 day, Stop date: 09/07/19 16:11:00 CDT, 1.59, m2, 0 Albuterol 2019-0 No Notes: Memori a 0.833 MG/ML 08-07 (Same as: l / 21:12: Duoneb) Ipratropium 00 Esko 0.167 MG/ML Inhalant Solution Acetaminoph 2019-0 No Notes: Do M emoria en 08-07 not exceed l 20:55: 4 gm/day. [place] 00 (Same as: Tylenol) methylPREDN 2019-0 No Notes: Ravindra shankar ISolone 08-07 (Same l SODium 20:07: as:Solu-ME Zara nn SUCCinate 00 DROL, A-Methapre d) cefepime 2019-0 No Notes: Memoria 08-07 (Same As: l 19:23: Maxipime) [place] 00 MEDICATION WASTE Product Size: 1000 mg Product Wasted: ___ mg Vancomycin 2019-0 No 2000 mg: Me moria 08-07 infuse l 19:00: over 2.5 Talha 00 hours For adult patients only: Round to nearest 250 mg per Medical Staff approval MEDICATION WASTE Product Size: 1000 mg Product Wasted: ___ mg Saline 2019-0 No Notes: Memoria Flush 0.9% 08-07 Same as: l 18:47: BD Posiflush Sterile Azithromyci 2019-0 No Notes: Ravindra shankar n 08-07 (Same As: l 18:47: Zithromax Talha IV) Albuterol 2019-0 Yes 3 mL, NEB, Me moria 0.833 MG/ML 4-27 RQ6H, PRN l / 19:02: Shortness Ipratropium 00 of breath, Esko 0 0.167 MG/ML Refill(s) Inhalant Solution Albuterol 2019-0 Yes NEB, RQID, Me moria 0.83 MG/ML 4-27 0 l Inhalant 19:02: Refill(s) Herm nancy Solution 00 bisacodyl 2019-0 Yes 10 mg = 1 Mem oria 10 mg 4-27 supp, MS, l rectal 19:02: Daily, PRN Zara nn suppository 00 Constipati on, 0 Refill(s) Docusate 2019-0 Yes 100 mg = 1 Mem oria Sodium 100 -27 cap, PO, l MG Oral 19:02: BID, PRN Mike n Capsule 00 as needed for constipati on, 0 Refill(s) Enoxaparin 2020-0 Yes 30 mg = Ravindra shankar -27 0.3 mL, l 19:02: SUB-Q, [place] 00 [id number], 0 Refill(s) Lidocaine 2020-0 Yes 1 patch, Ravindra shankar Hydrochlori 27 TOP, Q24H, l de 0.05 19:02: 0 [place] MG/MG 00 Refill(s) Transdermal Patch [Lidoderm] Enoxaparin 2019-0 No Notes: Memor ia 4-24 (Same as: l 07:00: Lovenox) [place] 00 remove 2019-0 No 1 patch, Memoria patch 24 Route: l 02:00: TOP, Talha 00 Daily, Drug form: ERFILM, Start date: 07/20/19 21:00:00 CDT, Stop date: 08/19/19 9:00:00 CDT, 0 Clindamycin 2019-0 No 900 mg, 50 Memoria 4-23 mL, Route: l 21:00: IVPB, Drug [place] form: INJ, ABXQ8H, Dosing Weight 54.545, kg, (for patients weighing 80kg or greater), Start date: 07/20/19 16:00:00 CDT, Duration: 3 doses or times, Stop date: 07/21/19 8:00:00 CDT, ABX Indication : Surgical Prophylaxi s, 0 Sodium 2019-0 No 500 mL, Memoria Chloride 07-19 1500 l 0.9% 18:46: ml/hr, [place] (Bolus) IV 00 Infuse Over: 20 minutes, Route: IV, 500, Drug form: INJ, ONCE, Dosing Weight 54.545 kg, Start date: 07/20/19 13:46:00 CDT, PRN Other -See Comment, 0 Hydralazine 2019-0 No 10 mg, Ravindra shankar - Route: l 18:46: IVP, [place] 00 Q20Min, Dosing Weight 54.545, kg, PRN [...] of times Fentanyl 2020-0 No 25 Memoria 07-19 microgram, l 18:46: Route: [place] 00 IVP, Q5Min, Dosing Weight 54.545, kg, PRN Pain Score 4-6, Priority: Routine, Start date: 07/20/19 13:46:00 CDT, Duration: 4 doses or times, Stop date: Limited # of times Hydromorpho 2020-0 No 0.5 mg, Mem oria ne 07-19 Route: l 18:46: IVP, [place] 00 Q5Min, Dosing Weight 54.545, kg, PRN Pain Score 7-10, Start date: 07/20/19 13:46:00 CDT, Duration: 4 doses or times, Stop date: Limited # of times Flumazenil 2020-0 No 0.2 mg, Ravindra shankar 07-19 Route: l 18:46: IVP, PRN, [place] 00 Dosing Weight 54.545, kg, PRN Benzodiaze pine Reversal, Initial dose, Start date: 07/20/19 13:46:00 CDT, Duration: 30 day, Stop date: 08/19/19 13:45:00 CDT Naloxone 2020-0 No 0.4 mg, Memori a 07-19 Route: l 18:46: IVP, [place] 00 Q2MIN, Dosing Weight 54.545, kg, PRN [...] MG/ML 07-19 Route: l Inhalant 18:46: NEB, Talha Solution 00 Q20Min, Dosing Weight 54.545, kg, PRN Wheezing, Priority: STAT, Start date: 07/20/19 13:46:00 CDT, Duration: 30 day, Stop date: 08/19/19 13:45:00 CDT Diphenhydra 2020-0 No 12.5 mg, Me moria mine 07-19 Route: l 18:46: IVP, Drug form: INJ, Q6H, Dosing Weight 54.545, kg, PRN Itching, Start date: 07/20/19 13:46:00 CDT, Duration: 30 day, Stop date: 08/19/19 13:45:00 CDT Ondansetron 2020-0 No 4 mg, Memor ia 07-19 Route: l 18:46: IVP, ONCE, Dosing Weight 54.545, kg, PRN Nausea & Vomiting, Start date: 07/20/19 13:46:00 CDT glycopyrrol 2019-0 No Route: IV, Memoria ate (ANES) 07-19 Drug form: l 18:26: INJ, ONCE, Stop date: 07/20/19 13:26:00 CDT neostigmine 2019-0 No Route: IV, Memoria (ANES) 07-19 Drug form: l 18:26: INJ, ONCE, Stop [...] Me moria (ANES) 4- Drug form: l 16:38: INJ, ONCE, Stop date: 07/20/19 11:38:00 CDT fentaNYL 2020-0 No Route: IV, Mem oria (ANES) 4- Drug form: l 16:38: INJ, ONCE, Stop date: 07/20/19 11:38:00 CDT propofol 2020-0 No Route: IV, Mem oria (ANES) 4- Drug form: l 16:38: INJ, ONCE, Stop date: 07/20/19 11:38:00 CDT rocuronium 2019-0 No Route: IV, M emoria (ANES) 4- Drug form: l 16:38: INJ, ONCE, Stop date: 07/20/19 11:38:00 CDT succinylcho 2019-0 No Route: IV, Memoria line (ANES) 4-23 Drug form: l 16:38: INJ, ONCE, [place] 00 Stop date: 07/20/19 11:38:00 CDT Calcium No 1,000 mL, Memor ia Chloride 07-19 Rate: 75 l 0.0014 15:55: ml/hr, Talha MEQ/ML / 00 Infuse Potassium over: 13.3 [...] 07-19 Route: l MG/ACTUAT / 14:00: INHALATION Talha formoterol , Drug fumarate Form: 0.0045 AERO/A, MG/ACTUAT Dosing Metered Weight Dose 54.545, Inhaler kg, BID, Start date: 07/20/19 9:00:00 CDT, Duration: 30 day, Stop date: 08/18/19 17:00:00 CDT celecoxib No Notes: Memori a - NSAID. l 14:00: Please [place] 00 check indication . Not for seizure. (Same As: CeleBREX) Pulmicort No Notes: Memori a Respules 07-19 (Same As: l 13:00: Pulmicort) albuterol No Notes: SEE Me moria -23 RT l 12:00: DOCUMENTAT ION (Same as: Proventil) Thyroxine No Notes: Memori a 4-23 Take 1 l 11:30: hour [place] 00 before or 2 hours after meal; Enteral feeds may interefere with the absorption of this medication .(Same as:Levothr oid, Synthroid) levothyroxi No 50 Memori a ne 50 mcg 4-23 microgram l (0.05 mg) 03:17: = 1 tab, Herm nancy oral tablet 00 PO, Daily, 0 Refill(s) Budesonide 2019-0 Yes 2 puff, Ravindra shankar 0.16 4-23 INHALATION l MG/ACTUAT / 03:17: , BID, # 6 Talha formoterol 00 gm, 0 fumarate Refill(s) 0.0045 MG/ACTUAT Metered Dose Inhaler gabapentin No Notes: Memor ia 4-23 (Same as: l 02:00: Neurontin) Albuterol No Notes: Memori a 0.833 MG/ML - (Same as: :52: Duoneb) Ipratropium 00 Esko 0.167 MG/ML Inhalant Solution Acetaminoph No Notes: Do M emoria en 07-19 not exceed l 01:46: 4 gm/day. [place] 00 (Same as: Tylenol) Tramadol No 50 mg, 1 Memor ia -23 tab, l 01:46: Route: PO, Drug form: TAB, Q6H, Dosing Weight 54.545, kg, PRN Pain Score 4-6, Start date: 07/19/19 20:46:00 CDT, Duration: 5 day, Stop date: 07/24/19 20:45:00 CDT, 0 Morphine No Notes: Memoria 4-23 (Same l 01:46: as:MORPhin e Sulfate) Docusate No Notes: Memoria 4-23 (Same as: l 01:46: Colace) (Do Not Crush) Bisacodyl No Notes: Memori a 4-23 (Same As: l 01:46: Dulcolax, Bisco-Lax) tizanidine No Notes: Memor ia 4-23 (Same As: l 01:46: Zanaflex) Ondansetron No Notes: Ravindra shankar -23 (Same as: l 01:46: Zofran) MEDICATION WASTE [...] tablet 00 PO, Daily, 0 Refill(s) celecoxib 0 Yes 200 mg = 1 Me moria 200 mg oral 1-10 cap, PO, l capsule 20:36: BID, 0 Talha 00 Refill(s) Symbicort 0 Yes 2 puff, Memor ia 160/4.5 1-10 INHALATION l inhalation 20:36: , BID, 0 Her ling aerosol 00 Refill(s) with adapter Celecoxib Celecoxib Yes [address] [facility] (Celebrex*) (Celebrex*) L ukes - 100 Mg 100 Mg Patient Capsule Capsule [facility] Hydrocodone Hydrocodone Yes [address] [facility] Bit/Acetami Bit/Acetami Day as [facility] - nophen nophen needed for Patie nt ([place] [facility] 7.5-325 7.5-325 Medical Tablet) 1 Tablet) 1 Cente r Each Tablet Each Tablet Levofloxaci Levofloxaci Yes [address] [facility] n n [facility] - (Levaquin) (Levaquin) Pat ient 500 Mg 500 Mg s Tablet Tablet Medical [facility] Levothyroxi Levothyroxi Yes [address] [facility] ne Sodium ne Sodium [facility] - 50 Mcg 50 Mcg Patient Tablet Tablet s [facility] Nicotine Nicotine Yes [address] [facility] [address] (Nicotine (Nicotine [facility] - Patch) 1 Patch) 1 Patient Each Each s Patch.dysq Patch.dysq [facility] Hydrocodone Hydrocodone 2015- No As Needed [facility] Bit/Acetami Bit/Acetami 09-26 [facility] - nophen nophen 00:00 Patient ([place] :00 s 5-325 5-325 Medical Tablet) 1 Tablet) 1 Cente r Each Each Tablet, Tablet, Tiotropium Tiotropium 2015- No Daily [facility] Esko Esko 09-26 [facility] - (Spiriva) (Spiriva) 00:00 Jolynn ent 18 Mcg 18 Mcg :00 s Cap.w.dev, Cap.w.dev, Med ica Inhalation Inhalation C enter Vytorin , Vytorin , 2015- No Daily [facility] Oral Oral 09-26 [facility] - 00:00 Patient :00 s [facility] Flonase , Flonase , 2015- No As Needed [facility] Nasal Nasal 09-26 [facility] - 00:00 Patient :00 [facility] Albuterol Albuterol 2014- No [facility] Sulfate Sulfate 07-18 [facility] - (Proair (Proair 00:00 Patient Hfa) 8.5 Gm Hfa) 8.5 Gm :00 s Hfa.aer.ad, Hfa.aer.ad, M [facility] Aspirin Aspirin 2015- No Daily [facility] (Aspirin (Aspirin 07-18 [facility] - Chew) 81 Mg Chew) 81 Mg 00:00 Patient Chew, Chew, :00 s [facility] Lorazepam Lorazepam 2014- No .[address] [facility] 0.5 Mg 0.5 Mg 07-18 [facility] - Tablet, 0.5 Tablet, 0.5 00:00 Patient Mg Oral Mg Oral :00 [facility] Omeprazole Omeprazole 2014- No [facility] (Prilosec) (Prilosec) 07-18 Asia kes - 40 Mg 40 Mg 00:00 Patient Capsule., Capsule., :00 [facility] Tramadol Tramadol 2014- No [facility] Hcl/Acetami Hcl/Acetami 07-18 [facility] - nophen nophen 00:00 Patient (Tramadol (Tramadol :00 s Hcl-Apap Hcl-Apap Medical 37.5-325 37.5-325 Center Tab) 1 Each Tab) 1 Each Tablet, Tablet, Hydrocodone Hydrocodone 2012- No [facility] Bit (Lorcet Bit (Lorcet 08-01 [facility] - 10) 1 Tab 10) 1 Tab 00:00 Jolynn ent Tab, Tab, :00 [facility] Vital Signs Vital Name Observation Time Observation Value Comments Source Systolic (mm Hg) 2020-02-07 17:33:00 Ravindra rial [place] Diastolic (mm Hg) 2020-02-07 17:33:00 Mem orial [place] Heart Rate 2020-02-07 17:33:00 [facility] [place] Respitory Rate 2020-02-07 17:33:00 Memori al [place] Weight 2020-02-07 17:33:00 [facility] [place] Systolic (mm Hg) 2019-08-30 16:42:00 Ravindra rial [place] Diastolic (mm Hg) 2019-08-30 16:42:00 Mem orial [place] Heart Rate 2019-08-30 16:42:00 [facility] [place] Respitory Rate 2019-08-30 16:42:00 Memori al [place] Weight 2019-08-30 16:42:00 [facility] [place] Temperature Oral (F) 2019-08-11 20:31:00 97.8 F [facility] [place] Heart Rate 2019-08-11 20:31:00 [facility] [place] Respitory Rate 2019-08-11 20:31:00 Memori al [place] Systolic (mm Hg) 2019-08-11 20:31:00 Ravindra rial [place] Diastolic (mm Hg) 2019-08-11 20:31:00 Mem orial [place] Temperature Oral (F) 2019-08-11 16:00:00 98 F [facility] [place] Heart Rate 2019-08-11 16:00:00 [facility] [place] Systolic (mm Hg) 2019-08-11 16:00:00 Ravindra rial [place] Diastolic (mm Hg) 2019-08-11 16:00:00 Mem orial [place] Temperature Oral (F) 2019-08-11 13:00:00 97.6 F [facility] [place] Heart Rate 2019-08-11 13:00:00 [facility] [place] Respitory Rate 2019-08-11 13:00:00 Memori al [place] Systolic (mm Hg) 2019-08-11 13:00:00 Ravindra rial [place] Diastolic (mm Hg) 2019-08-11 13:00:00 Mem orial [place] Respitory Rate 2019-08-11 11:39:00 Memori al [place] Height 2019-08-08 18:25:00 165.1 cm [facility] [place] BMI Calculated 2019-08-08 18:25:00 Memori al [place] Weight 2019-08-08 18:25:00 [facility] [place] Temperature Oral (F) 2019-07-24 16:30:00 97.9 F [facility] [place] Heart Rate 2019-07-24 16:30:00 [facility] [place] Respitory Rate 2019-07-24 16:30:00 Memori al [place] Systolic (mm Hg) 2019-07-24 16:30:00 Ravindra rial [place] Diastolic (mm Hg) 2019-07-24 16:30:00 Mem orial [place] Temperature Oral (F) 2019-07-24 13:00:00 98.2 F [facility] [place] Heart Rate 2019-07-24 13:00:00 [facility] [place] Respitory Rate 2019-07-24 13:00:00 Memori al [place] Systolic (mm Hg) 2019-07-24 13:00:00 Ravindra rial [place] Diastolic (mm Hg) 2019-07-24 13:00:00 Mem orial [place] Respitory Rate 2019-07-24 12:04:00 Memori al [place] Temperature Oral (F) 2019-07-24 09:14:00 97.6 F [facility] [place] Heart Rate 2019-07-24 09:14:00 [facility] [place] Systolic (mm Hg) 2019-07-24 09:14:00 Ravindra rial [place] Diastolic (mm Hg) 2019-07-24 09:14:00 Mem orial [place] Height 2019-07-19 22:14:00 167.64 cm [facility] [place] BMI Calculated 2019-07-19 22:14:00 [facility] [place] Weight 2019-07-19 22:14:00 [facility] [place] Systolic (mm Hg) 2019-04-07 19:30:00 Ravindra [facility] [place] Diastolic (mm Hg) 2019-04-07 19:30:00 [facility] [place] Heart Rate 2019-04-07 19:30:00 Elie [place] Respitory Rate 2019-04-07 19:30:00 Kenroy jensen [place] Height 2019-04-07 19:30:00 167.64 cm Elie [place] Weight 2019-04-07 19:30:00 [facility] [place] BMI Calculated 2019-04-07 19:30:00 [facility] [place] Procedures Procedure Date / Time Performed Performing Clinician [facility] e X-ray of chest, two 2017-06-03 00:00:00 RACHEL OLMOS [facility] Encounters Start End Encounter Admission Attending Care Care Encounter Source Date/Time Date/Time Type Type Clinicians Facility Department ID 2019-08-08 Inpatient E [id number] [facility] 15:[facility] [facility] 2020-02-07 2020-02-07 Outpatient Crescencio [facility]SE [facility] [id number] 10:00:00 23:59:00 Atul 16 [facility] 2020-02-07 2020-02-07 Outpatient MHSE [id number] MH 10:00:00 10:00:00 [facility] 2020-01-29 2020-01-29 Outpatient RHONA PratherSE MHSE [id number] 14:20:00 23:59:00 Atul 04 [facility] 2020-01-29 2020-01-29 Outpatient MHSE MHSE [id number] MH 14:20:00 14:20:00 [facility] 2019-10-10 2019-10-10 Emergency [facility] [id number] 15:26:14 20:35:00 Sonia Carty [id number] [place] [id number] [place] [id number] 2019-10-09 2019-10-09 Outpatient Nilesh MHSE MHSE [id number] 10:31:00 23:59:00 [place] 95 M 2019-10-09 2019-10-09 Outpatient MHSE MHSE 0195 MH 10:31:00 10:31:[address] [facility] 2019-08-30 2019-08-30 Outpatient Crescencio, MHSE MHSE [id number] 10:32:00 23:59:00 Atul 53 Rey 2019-08-30 2019-08-30 Outpatient MHSE MHSE [id number] MH 10:32:00 10:32:00 [facility] 2019-08-18 2019-08-18 Outpatient Crescencio, MHSE MHSE [id number] 13:58:00 23:59:00 Atul 01 Rey 2019-08-18 2019-08-18 Outpatient MHSE MHSE [id number] MH 13:58:00 13:58:00 [facility] 2019-08-08 2019-08-11 Outpatient Margarita, MHSE MHSE [id number] 13:22:37 17:52:00 Jose 02 Tarah 2019-07-19 2019-07-24 Outpatient Mary, MHSE MHSE [id number] 17:13:04 18:00:00 Kaylie 00 2019-07-19 2019-07-19 Inpatient E MHSE MED 7500 MH 20:33:00 17:13:00 [facility] 2019-04-12 2019-05-11 Outpatient Crescencio, MHSE MHSE [id number] 12:56:00 23:59:00 Atul 00 Lucas-Boris 2019-04-12 2019-04-12 Outpatient MHSE MHSE [id number] MH 12:56:00 12:56:00 Suhas [facility] 2019-04-07 2019-04-07 Outpatient Crescencio, MHSE MHSE [id number] 12:38:00 23:59:00 Atul 03 Rey 2019-04-07 2019-04-07 Outpatient MHSE MHSE 0003 MH 12:38:00 12:38:00 Suhas [facility] 2017-05-27 2017-06-06 Discharged [id number] 22:22:00 15:44:[address] [facility] Results Test Description Test Time Test Comments Results Result Sour e Comments - CT L-SPINE W/O 2020-04-29 CONTRAST 6 22:09:00 [facility]Name: BILL CHAMBERLAIN : 1940 Sex: F * Name: BILL CHAMBERLAIN [facility] : 1940 Age/S: 79 / F [address] [facility] Unit #: [id number] Loc: Alina Fuller [address] Phys: Jerman Kincaid MD Acct: [id number] Dis Date: Status: PRE ER PHONE #: [phone] Exam Date: 05/14/20202114 FAX #: [phone] Reason: Pain s/p Fall EXAMS: CPT CODE: [id number] CT L-SPINE W/O CONTRAST 87086 HISTORY: Pain s/p Fall TECHNIQUE: 2.[address] of the lumbar spine with coronal and sagittal reformatting. Automated exposure control for dose reduction. COMPARISON: MRI of the lumbar spine June 06, 2009. There is also a PET/CT February 13, 2019 FINDINGS: No acute fracture. No subluxation. Vertebral body alignment is satisfactory. There is greater than 50% height loss and sclerotic changes of the L1 vertebral body which was not seen on the prior exams. There is also height loss with a large central Schmorl's node involving the superior endplate of L2 which was seen in 2009. Intervertebral disc heights are preserved. Small right-sided pleural effusion. Mild subsegmental atelectasis in the lung bases. Extensive atherosclerotic calcifications are seen throughout the abdominal aorta and extend into the iliac arteries. Heavy colonic stool burden T12-L1: No disc bulge or protrusion. No cental canal or foraminal stenosis L1-L2: Moderate to severe left-sided foraminal narrowing and mild right-sided foraminal narrowing. L2-L3: Moderate bilateral foraminal narrowing secondary to disc bulging. L3-L4: Severe bilateral foraminal narrowing secondary to disc bulging. L4-L5: Moderate bilateral foraminal narrowing secondary disc bulging. L5-S1: No disc bulge or protrusion. No cental canal or foraminal stenosis IMPRESSION: Compression fracture of the L1 vertebral body. Onset is indeterminate and an MRI of the lumbar spine is recommended for further assessment. However there is no retropulsion of bone into the spinal canal. PAGE 1 Signed Report (CONTINUED) Name: BILL CHAMBERLAIN [facility] : 1940 Age/S: 79 / F [address] [facility] Unit #: [id number] Loc: [place] [address] Phys: Jerman Kincaid MD Acct: [id number] Dis Date: Status: PRE ER PHONE #: [phone] Exam Date: 05/14/20202114 FAX #: [phone] Reason: Pain s/p Fall EXAMS: CPT CODE: [id number] CT L-SPINE W/O CONTRAST 77613 <Continued> Disc bulging is seen in multiple levels of the lumbar spine resulting in foraminal narrowing as described above. Correlate clinically for radiculopathy. This can also be better assessed with MRI. Location: [facility] at 2209 Reported and signed by: Sg Klein MD CC: Jerman Kincaid MD; Lambert Canada MD Technologist:SHANON CARD(R),RDMS,CT CTDI: DLP: Trnscb Date/Time: 05/14/2020 (2208) t.SDR.RR31 Orig Print D/T: S: 05/14/2020 (3) PAGE 2 Signed Report CHEM PANEL 0.8 [place] [address] [place] 22:25:00 CHEM PANEL [address] [place] [address] [place] 22:25:00 CHEM PANEL 2019-07-29 0.6 [place] [address] [place] 18:39:00 CHEM PANEL 2019-07-29 87 [place] [address] [place] 18:39:00 HEMATOLOGY 2019-07-28 See Note (08/11/19 Memoria l 5 5:01 AM) [place] 10:01:00 HEMATOLOGY 2019-07-28 Normal (08/11/19 5:01 Ravindra rial 5 AM) [place] 10:01:00 HEMATOLOGY 2019-07-28 91.6 [facility] 5 [place] 10:01:00 HEMATOLOGY 2019-07-28 2.9 [facility] 5 [place] 10:01:00 HEMATOLOGY 2019-07-28 4.4 [facility] 5 [place] 10:01:00 HEMATOLOGY 2019-07-28 0.7 [facility] 5 [place] 10:01:00 HEMATOLOGY 2019-07-28 0.4 [facility] 5 [place] 10:01:00 HEMATOLOGY 2019-07-28 11.6 [facility] 5 [place] 10:01:00 HEMATOLOGY 2019-07-28 0.4 [facility] 5 [place] 10:01:00 HEMATOLOGY 2019-07-28 0.6 [facility] 5 [place] 10:01:00 HEMATOLOGY 2019-07-28 0.1 [facility] 5 [place] 10:01:00 HEMATOLOGY 2019-07-28 1+ *ABN*(08/11/19 Memorial 5 5:01 AM) [place] 10:01:00 HEMATOLOGY 2019-07-28 Moderate Memorial 5 *ABN*(08/11/19 5:01 Mike n 10:01:00 AM) HEMATOLOGY 2019-07-28 12.6 [facility] 5 [place] 10:01:00 HEMATOLOGY 2019-07-28 2.86 [facility] 5 [place] 10:01:00 HEMATOLOGY 2019-07-28 8.7 [facility] 5 [place] 10:01:00 HEMATOLOGY 2019-07-28 26.0 [facility] 5 [place] 10:01:00 HEMATOLOGY 2019-07-28 91.1 [facility] 5 [place] 10:01:00 HEMATOLOGY 2019-08-11 10:01:00 Test Item Value Reference Range Interpretation Comme nts MCH (test code = MCH) 30.4 pg 27.0-31.0 [facility] UnhkzhfELQJSXZPQN5443-76-26 10:01:0033.4[facility]ann[facility]OLOGY 2019-08-11 10:01:0015.6[facility] IiffecfXKMKSDVEWI4252-14-31 10:01:47819Pkftzlhx DrltyzcNBMWGOHPYF3598-16-52 10:01:008.1[facility] MtbjsvoDZGYGTUACM3158-97-55 00:09:007.9[facility] SdrywkyRYQLMXKMTC7736-13-53 00:09:00 Test Item Value Reference Range Interpretation Comments Leighton Craig TND (test code = Leighton Craig 1920 1 TND) [facility]annCHE[facility] DVZRT4070-68-29 11:06:46296Vvbwuahq HermannCHEM PANEL 2019-08-10 11:06:0029[facility]annCHEM DJHSF8695-94-89 11:06:000.59[facility]annCHEM YGAOF1934-78-75 11:06:90247Podjgojc HermannCHEM JFVGL1211-82-21 11:06:004.6[facility] HermannCHEM OVMPE7457-28-56 11:06:48829Unxxnogm HermannCHEM PMYDL2943-14-22 11:06:0027[facility] HermannCHEM HQBSM7637-84-80 11:06:009.0 [facility]annCHEM ZTJSA7959-70-91 11:06:009.6[facility] HermannCHEM PANEL 2019-08-10 11:06:0087[facility] TepradaPPROTLJGXI8777-64-86 11:06:00Normal (08/10/19 6:06 AM)[facility] MlquegjWSBEFWFQBY5759-27-19 11:06:00Normal (08/10/19 6:06 AM)[facility] XtxrtnmLRFSJEBUOB0881-54-22 11:06:0093.3[facility] [place] CPSAZRYORE7652-08-37 11:06:001.3[facility] RecwcwbMNPDZBJVYE6613-05-07 11:06:005.0 Memorial DzjbuseGVDISCQUBR4628-25-34 11:06:000.4[facility] HermannHEMATOLOGY 2019-08-10 11:06:0013.9[facility] ZptknzxOGIWVKLHYY6260-82-96 11:06:000.2[facility] IprhjfcWAAVZGFLAL1293-14-40 11:06:000.7[facility] XmfhryaWKINPYMHRY5274-71-05 11:06:000.1[facility] MjriuozDJVUBAUIST5553-76-77 11:06:0014.9[facility] [place] USLSZBBJTA7689-25-18 11:06:002.97[facility] XhfyowrTVZTWKXULR6391-67-95 11:06:00 8.6[facility] VchxuuxENZIWIQCXW2109-18-42 11:06:0026.8[facility]annHEMATOLOGY 2019-08-10 11:06:0090.0[facility] ErdyrbtLCWAXSKESX7818-65-99 11:06:00 Test Item Value Reference Range Interpretation Comments MCH (test code = MCH) 29.0 pg 27.0-31.0 [facility] CmfxwbdAYOOJBWLAG4963-83-41 11:06:0032.2[facility]annHEMATOLOGY 2019-08-10 11:06:0015.1[facility] NizptfgTRYLFQPWQO0259-87-66 11:06:20032Lzvukdci ZlphfrsCOXKVABNGI8517-26-43 11:06:008.6[facility] EzhyxouQTJCTAHBDN7686-32-98 15:39:009.1[facility] HermannCHEM WKTTU9755-68-03 10:42:98449Cvrobpvy HermannCHEM GEOPD7040-88-67 10:42:0031[facility] HermannCHEM BUXCN1751-85-69 10:42:000.71 [facility]annCHEM TUCZZ1852-24-29 10:42:67446Yxdaxxut HermannCHEM PANEL 2019-08-09 10:42:004.7[facility] HermannCHEM XOCUC7453-24-05 10:42:18758Afmytvzu HermannCHEM CRYTR5486-11-91 10:42:0026[facility] HermannCHEM VFUAA1099-38-75 10:42:0012.7[facility] HermannCHEM XRQTL4448-26-31 10:42:009.9[facility] HermannCHEM WYHSX4250-43-35 10:42:00 Test Item Value Reference Range Interpretation Comments B/C Ratio (test code = B/C Ratio) 44 1 6-25 [facility]annCHEM UMEOO5792-67-95 10:42:006.7[facility] HermannCHEM PANEL 2019-08-09 10:42:001.3[facility] HermannCHEM XGNOJ8814-42-88 10:42:005.4[facility] HermannCHEM MMUUZ2673-93-77 10:42:00 Test Item Value Reference Range Interpretation Comments A/G Ratio (test code = A/G Ratio) 0.2 1 0.7-1.6 [facility]annCHEM DWUYN9931-11-02 10:42:0062[facility] HermannCHEM PANEL 2019-08-09 10:42:63370Bstuyprz HermannCHEM LEEDJ7530-81-27 10:42:0094[facility] HermannCHEM CJIBM4153-42-10 10:42:000.5[facility] HermannCHEM XCKMB2570-35-56 10:42:0081[facility] NozcqfnOTSHMSVRJY2062-12-41 10:42:0080.0[facility] [place] VOUXQSCHKQ8375-12-82 10:42:008.0[facility] XmwplvpENZLDABSJF2025-23-56 10:42:003.0 [facility] XktxtvfQSGPBGHJVM5077-65-08 10:42:009.0[facility] HermannHEMATOLOGY 2019-08-09 10:42:0015.0[facility] TjzqgeeZTWGMZGQVE1124-09-34 10:42:000.5[facility] SghjgefJLASUECQTB5436-88-89 10:42:001.5[facility] ZdohvntPIHQIYQSUC0361-71-33 10:42:00 Test Item Value Reference Range Interpretation Comments Tot Cell Ct (test code = Tot Cell Ct) 100 1 [facility] WjpsvcqBKDWIFIRNS6630-79-68 10:42:00Moderate *ABN*(08/09/19 5:42 AM) [facility] SgraggoQAPFAAYNWP0892-12-29 10:42:0017.1[facility] HermannHEMATOLOGY 2019-08-09 10:42:003.63[facility] TgrqkrfIWIZDTHIXZ0298-73-52 10:42:0010.6[facility] JaazhkfTYHOEJTHWN6400-75-62 10:42:0033.2[facility] KijpsirKNJAZFDBGJ5893-88-16 10:42:0091.4[facility] XrkhelkIDRQTMNSMC5344-49-87 10:42:00 Test Item Value Reference Range Interpretation Comments MCH (test code = MCH) 29.2 pg 27.0-31.0 [facility] AwbhtqlFRBRKIHLWX3951-68-00 10:42:0031.9[facility] HermannHEMATOLOGY 2019-08-09 10:42:0015.1[facility] DafmygwKPUISSSWDB4613-07-83 10:42:63450Dqgcmkra OziqwkeOIAXNCHWFP9913-19-78 10:42:008.3[facility] HermannCHEM TGODX9204-50-43 02:14:001.3[facility] HermannBACTERIAL - KEGZHQUU9471-08-71 21:51:00Positive 1*ABN*(08/08/19 4:51 PM)[facility] MczrictWWSOQZEVPJ3768-09-67 21:51:00Not Detected (08/08/19 4:51 PM)[facility] HermannCARDIAC EJFHNCR8469-26-47 20:08:90953Xzccobdz HermannANEMIA FXMTR2353-79-99 19:27:956582Oxhcxhuf HermannCARDIAC ENZYMES 2019-08-08 19:27:0017[facility] HermannCARDIAC TAFRNLP1772-46-57 19:27:000.02 [facility]annCHEM LJMSY6671-55-12 19:27:001.69[facility] HermannCHEM PANEL 2019-08-08 19:27:0049[facility] HermannCHEM GKZIB1509-21-59 19:27:0013[facility] HermannCHEM JAAUH7318-16-26 19:27:00<0.15[facility] HermannCHEM APOAZ7978-71-59 19:27:86491Ehfnacdg HermannCHEM RLGWF2860-74-23 19:27:004.1[facility] HermannCHEM QJGNL5533-00-60 19:27:05367Ctrrmptb HermannCHEM PYSEV4639-92-70 19:27:0014 [facility] HermannCHEM LEAYJ9745-74-64 19:27:0020.1[facility] HermannCHEM PANEL 2019-08-08 19:27:006.8[facility] HermannCHEM AQSEK9973-55-16 19:27:002.5[facility] HermannCHEM FZNBB6988-15-23 19:27:000.8[facility] HermannCHEM JBLCZ3083-57-49 19:27:001.7[facility] HermannCHEM CPXLO4049-78-63 19:27:00 Test Item Value Reference Range Interpretation Comments A/G Ratio (test code = A/G Ratio) 0.5 1 0.7-1.6 [facility]annCHEM FTOKF4369-35-21 19:27:0011[facility] HermannCHEM PANEL 2019-08-08 19:27:0025[facility] HermannCHEM UEHXK2266-45-22 19:27:0029[facility] HermannCHEM ZBFFR7680-86-97 19:27:000.3[facility] HermannCHEM FFODV9687-25-58 19:27:87476Xetjdxji HermannCHEM AQSKD8654-42-90 19:27:001.2[facility] [place] WNKICMEWMM7255-80-39 19:27:00 Test Item Value Reference Range Interpretation Comments PT (test code = PT) 14.9 s 12.0-14.7 [facility] LjqhmglQMCHTURKMO9008-00-20 19:27:00 Test Item Value Reference Range Interpretation Comments INR (test code = INR) 1.16 1 0.85-1.17 [facility] CuucwwbIMWUBETUBS3721-36-66 19:27:00 Test Item Value Reference Range Interpretation Comments PTT (test code = PTT) 30.3 s 22.9-35.8 [facility] BqlexkhVCYNEQDCHX3388-80-24 19:27:00Normal (08/08/19 2:27 PM)[facility] PvelfkxFYYUBPSIBQ8999-60-34 19:27:00Normal (08/08/19 2:27 PM)[facility] [place] CJRQAKCXDL8568-74-30 19:27:000.3[facility] RxvbpvhVJYKEYROHE4493-86-51 19:27:000.1 [facility] HermannCHEM EWFCQ3710-54-29 14:38:0096[facility] HermannCHEM PANEL 2019-07-24 14:38:0016[facility] HermannCHEM YDGGV9187-72-18 14:38:000.54[facility] HermannCHEM NJVJP8491-62-23 14:38:06736Dvgpghdy HermannCHEM BIDYP1552-91-46 14:38:004.0[facility] HermannCHEM WFKLI5851-07-94 14:38:36959Zpqzwqdk HermannCHEM OLZKM0559-95-97 14:38:0035[facility] HermannCHEM PWLKV1049-27-54 14:38:008.8 [facility]annCHEM JDOPM5997-16-57 14:38:007.0[facility] HermannCHEM PANEL 2019-07-24 14:38:0090[facility] HermannCHEM EVGLJ0168-88-21 14:38:002.3[facility] DfbycigSSMIJFIMGB5135-26-79 14:38:004.6[facility] EdgefhgHXUCCOBUWS5826-87-14 14:38:003.25[facility] PfcllfuVTMBOMFYJJ8717-85-39 14:38:009.9[facility] [place] NLXHILJFAD2052-77-75 14:38:0030.1[facility] TftvrosNISKILVVEF9295-37-61 14:38:00 92.3[facility] UibbfomPJYEQHFFRK9323-30-90 14:38:00 Test Item Value Reference Range Interpretation Comments MCH (test code = MCH) 30.4 pg 27.0-31.0 [facility] IetaakxNAXBYDREXY9774-81-58 14:38:0033.0[facility] HermannHEMATOLOGY 2019-07-24 14:38:0014.4[facility] OvmmjqaCBCXJEYSWE5820-41-40 14:38:11668Dzkvlztl BfyygqpZOYQMKDCPF4236-78-73 14:38:008.3[facility] EvzusjjXYVZHFLOIG1737-90-65 16:43:0010.2[facility] PibxpeeRGSWRBDFGN7560-88-38 16:43:0030.8[facility] [place] SJRLDXIMRJ2498-26-97 19:43:009.7[facility] MoudcdpKESUKLNBKT2127-20-88 19:43:00 29.3[facility] DpjnkluSLICGNZIQL9297-91-41 09:48:009.6[facility] HermannHEMATOLOGY 2019-07-21 09:48:003.28[facility] ScwllwpMUYSTKUKOT2949-28-06 09:48:0092.3[facility] JjxafviDSYEKASQEE9488-83-79 09:48:00 Test Item Value Reference Range Interpretation Comments MCH (test code = MCH) 30.1 pg 27.0-31.0 [facility] ZoiqfjtDEIVNNSHUO6519-81-78 09:48:0032.7[facility] HermannHEMATOLOGY 2019-07-21 09:48:0014.6[facility] VjpwfyeDJKDDEEUOW5262-10-17 09:48:85264Fxwpmsmf PfvextmBNYSKJIYAE9460-46-96 09:48:008.3[facility] MibkmxgNQYJQQFGQO9118-22-81 09:48:0085.5[facility] AzufhdkVJOALFKOMO6491-91-31 09:48:005.2[facility] [place] OVTDPXTYVK0633-40-19 09:48:009.0[facility] UqqofztWQAVUXHSVL1187-99-77 09:48:000.2 [facility] RfepuciQPLLFGXZZB0721-73-56 09:48:000.1[facility] HermannHEMATOLOGY 2019-07-21 09:48:008.2[facility] VwrmpqpMOPYAOKYEZ9846-67-38 09:48:000.5[facility] XfezwlrWTOIEXMLPY4342-21-05 09:48:000.9[facility] KladeuaKHYWDNHJHI0136-13-98 02:04:00Not Detected (07/20/19 9:04 PM)[facility]annCHEM DRIZJ3065-76-34 09:22:0098[facility]annCHEM PCGUF4976-56-88 09:22:0013[facility] HermannCHEM LEUPV9592-97-89 09:22:000.63[facility] HermannCHEM NWVVL3462-32-11 09:22:81799 [facility]annCHEM EMNFF7736-08-01 09:22:004.6[facility] HermannCHEM PANEL 2019-07-20 09:22:95985Cekchplw HermannCHEM WBECO5383-24-68 09:22:0025[facility]annCHEM HFTNB2268-07-39 09:22:008.6[facility] HermannCHEM ABKEO8468-28-05 09:22:009.6[facility] HermannCHEM UYKWC3645-25-82 09:22:0086[facility] HermannCHEM IIAPF8685-35-16 09:22:002.4[facility] HermannCHEM QSTPB7082-47-62 09:22:003.8 [facility] EghomqkAWWMPSOMPP9003-55-49 09:22:008.7[facility] HermannHEMATOLOGY 2019-07-20 09:22:003.66[facility] LaqrkpyCHCBZQVXCK3278-01-23 09:22:0092.4[facility] KmdxtwoELNPEXCXGN3960-94-10 09:22:00 Test Item Value Reference Range Interpretation Comments MCH (test code = MCH) 29.7 pg 27.0-31.0 [facility] XtewrkxFBSIHUGCCP5957-58-95 09:22:0032.2[facility] HermannHEMATOLOGY 2019-07-20 09:22:0014.9[facility] CvexklyCLWPKUIUNC7613-83-13 09:22:09798Qpbjqdtu DpjveiaMIWIBQCQVU5309-39-76 09:22:007.9[facility] XlmfgjhDKLSVPJYTN6048-30-56 09:22:0077.8[facility] ImrgllrLNTEKPQYVK7098-38-76 09:22:009.6[facility] [place] LPGIKLCJRB2009-82-18 09:22:007.4[facility] EbnyvgqPPAWCLHNSP5388-72-09 09:22:004.8 [facility] MvadsssETUPSZEYSD3742-27-85 09:22:000.4[facility] HermannHEMATOLOGY 2019-07-20 09:22:006.8[facility] RlrjowiDHOERLFOCK6038-05-70 09:22:000.8[facility] PnageveWDLIASJTBH5131-68-23 09:22:000.6[facility] NtolwraVMABQFPVRI5150-22-37 09:22:000.4[facility] HermannBLOOD BANK VYQSUJK6702-88-47 23:52:00Negative (07/19/19 6:52 PM)[facility] HermannCARDIAC BONDSFA3788-18-28 23:52:00<0.02 [facility] HermannCHEM KILAI8675-10-27 23:52:02599Ztsgmrds HermannCHEM PANEL 2019-07-19 23:52:0017[facility] HermannCHEM CSUCX3674-02-38 23:52:000.64[facility] HermannCHEM QVCON3320-71-83 23:52:41154Mkpjjycb HermannCHEM WULVL5723-71-45 23:52:004.0[facility] HermannCHEM AUUJN8633-28-39 23:52:16132Zmvwheqx HermannCHEM PBRGJ6570-38-56 23:52:0026[facility] HermannCHEM WJOHQ0613-43-79 23:52:008.5 [facility]annCHEM ALSOH9116-80-70 23:52:008.0[facility] HermannCHEM PANEL 2019-07-19 23:52:0085[facility] UyubcurNFZUFEERFY4348-62-39 23:52:00 Test Item Value Reference Range Interpretation Comments PT (test code = PT) 12.5 s 12.0-14.7 [facility] QjtjwqtFAZLODLLWQ9562-22-82 23:52:00 Test Item Value Reference Range Interpretation Comments INR (test code = INR) 0.93 1 0.85-1.17 [facility] UncamazOOHVIDBBJZ1070-26-49 23:52:0086.0[facility] HermannHEMATOLOGY 2019-07-19 23:52:006.5[facility] WpslldgIFGUQNXRVM4240-85-87 23:52:006.2[facility] RjibjucFFMEXOVBST1179-29-82 23:52:001.0[facility] TcoernjSILYUYLLKH5072-08-62 23:52:000.3[facility] GaqtywmFOIZGVTMSN7002-85-66 23:52:0010.6[facility] [place] BVJEMPXSIK1263-03-05 23:52:000.8[facility] BxemoocOSCXYOKQZL4726-73-72 23:52:000.8 [facility] YifwwwmCLZXZFQNGV3106-31-60 23:52:000.1[facility] HermannURINE AND STOOL 2019-07-19 23:52:00Clear (07/19/19 6:52 PM)[facility] STOOL 2019-07-19 23:52:00 Test Item Value Reference Range Interpretation Comments UA Spec Grav (test code = UA Spec 1.012 1 Grav) [facility] FFSAN2457-56-48 23:52:00 Test Item Value Reference Range Interpretation Comments UA pH (test code = UA pH) 6.0 1 5.0-8.0 [facility] LTRJR8137-01-21 23:52:00Negative *NA*(07/19/19 6:52 PM) [facility] JSWFU3672-72-68 23:52:00Negative (07/19/19 6:52 PM) [facility] TXWMR8879-87-26 23:52:00Negative (07/19/19 6:52 PM) [facility] NXFXS7256-08-71 23:52:00Negative (07/19/19 6:52 PM) [facility] MJGOC5252-03-89 23:52:004[facility]annUR[facility] AND EKYED5057-27-71 23:52:001[facility] [place]-46 09:51:00 Name: BILL CHAMBERLAIN [facility] : 1940 Age/S: 78 / F [address] [facility] Unit #: [id number] Loc: [place] [address] Phys: João Zambrano MD Acct: [id number] Dis Date: 03/06/2019 Status: DIS IN PHONE #: [phone] Exam Date: 03/02/2019 1110 FAX #: [phone] Reason: BIOPDY EXAMS: CPTCODE: [id number] CT GUID [facility] [address] EXAM: CT-shabbir ded lung biopsy; INFORMATION: Patient [...] chest tube as reported separately. Location code: [facility] at 0951 Reported and signed by: João Zambrano M.D. PAGE 1 Signed Report (CONTINUED) Name: RHIANNON CHAMBERLAINROBERTO MASSEY [facility] : 1940 Age/S: 78 / F [address] [facility] Unit #: [id number] Loc: [place] [address] Phys: João Zambrano MD Acct: [id number] Dis Date: 03/06/2019 Status: DIS IN PHONE #: [phone] Exam Date: 03/02/2019 1110 FAX #: [phone] Reason: BIOPDY EXAMS: CPT CODE: [id number] CT GUID NDL [facility] [address] <Continued> CC: Lambert Canada MD; João Zambrano MD Technologist:Ayleen morrison,RT(R),CT CTDI: DLP: Trnscb Date/Time: 03/07/2019 (950) t.FAHEEM Orig Print D/T: S: 03/07/2019 (954) PAGE 2 Signed Report- SP DARION Hunt/[id number] 09:30:00 Name: REGINEGICHRISEderBILLROBERTO MASSEY [facility] : 1940 Age/S: 78 / F [address] [facility] Unit #: [id number] Loc: [place] [address] Phys: João Zambrano MD Acct: [id number] Dis Date: [id number] Status: DIS IN PHONE #: [phone] Exam Date: 03/02/2019 1150 FAX #: [phone] Reason: EXAMS: CPT CODE: [id number] SP PERC PLEUR DRN W/IMAG 80279 Fluoro Time: DAP (Gy m2): Air Kerma [...] monitored by a trained registered nurse. Physician mwrd-de-cyww sedation time was 8 minutes. Informed consent [...] fashion. Xylocaine was administered and an 8 Romansh pigtail catheter was inserted into the right pleural cavity. The pneumothorax was evacuated. The catheter was sutured to the skin and connected to Pleur-evac drainage. Post procedure scans showed almost complete ligation of the pneumothorax and a well-positioned smallbore chest tube. No complications. IMPRESSION: Successful insertion of a right chest tube for treatment of a symptomatic pneumothorax after CT-guided lung biopsy. Location code: [facility] at 0930 Reported and signed by: João Zambrano M.D. PAGE 1 Signed Report (CONTINUED) Name: BILL CHAMBERLAIN [facility] : 1940 Age/S: 78 / F [address] [facility] Unit #: [id number] Loc: [place] [address] Phys: João Zambrano MD Acct: [id number] Dis Date: [id number] Status: DIS IN PHONE #: [phone] Exam Date: 03/02/2019 1150 FAX #: [phone] Reason: EXAMS: CPTCODE: [id number] SP PERC PLEBRENNAN NOGUEIRA W/IMAG 43492 Fluoro Time: DAP (Gy m2): Air Kerma (mGy): <Continued> CC: Lambert Canada MD; João Zambrano MD Technologist: Luther Thompson RT(R) Trnscb Date/Time: 03/07/2019 (929) [email or web address].GRW Orig Print D/T:S: 03/07/2019 (0933) PAGE 2 Signed Report- CT GUID [facility] 2019-03-07 09:30:00 Name: IBLL CHAMBERLAIN [facility] : 1940 Age/S: 78 / F [address] [facility] Unit #: [id number] Loc: [place] [address] Phys: João Zambrano MD Acct: [id number] Dis Date: 03/06/2019 Status: DIS IN PHONE #: [phone] Exam Date: 03/02/2019 1147 FAX #: [phone] Reason: CHEST TUBE [facility] EXAMS: CPTCODE: [id number] CT GUID [facility] [address] EXAM: CT-guided insertion of a chest tube, [...] monitored by a trained registered nurse. Physician axpz-wn-abct sedation time was 8 minutes. Informed consent [...] fashion. Xylocaine was administered and an 8 Romansh pigtail catheter was inserted into the right [...] pneumothorax after CT-guided lung biopsy. Location code: [facility] Electronically Signedby Laurita Zambrano on 03/07/2019 at 0930 Reported and signed by: João Zambrano M.D. PAGE 1 Signed Report (CONTINUED) Name: BILL CHAMBERLAIN [facility] : 1940 Age/S: 78 / F [address] [facility] Unit #: [id number] Loc: [place] [address] Phys: João aZmbrano MD Acct: [id number] Dis Date: 03/06/2019 Status: DIS IN PHONE #: [phone] Exam Date: 03/02/2019 1147 FAX #: [phone] Reason: CHEST TUBE [facility] EXAMS: CPT CODE: [id number] CT GUID NDL [facility] [address] <Continued> CC: Lambert Canada MD; João Zambrano MD Technologist:Ayleen JamesRT(R),CT CTDI: DLP: Trnmaneb Date/Time: 03/07/2019 (929) Ganesh Orig Print D/T: S: 03/07/2019 (932) PAGE 2 Signed ReportLUNG,BIOPSY 2019-03-06 18:18:00 RUN DATE: 03/06/19 [facility] PAGE 1 RUN TIME: 1817 Specimen Inquiry RUN USER: INTERFACE PATIENT: BILL CHAMBERLAIN LOC: [facility] U #: [id number] AGE/SX: 78/F ROOM: [facility] RE03/04/19REG DR: Aaron Jeronimo MD : [birth year] BED: A DIS: 03/06/19 STATUS: DIS IN TLOC: SPEC #: [id number] RECD: 03/02/19 STATUS: YUDI RE #: [id number] MARLI: 03/02/19- [facility] DR: João Zambrano MD ENTERED: 03/02/19 SP TYPE: LUNG BX OTHR DR: Lambert Canada MD ORDERED: GROSS COPIES TO: Lambert Canada MD [address] [place], [place] [id number] João Zambrano MD [address] [place] [address] PROCEDURES: GROSS (03/06/19-1536) TISSUES: LUNG, NOS - BX, TOUCH PREP [...] adenocarcinoma. Paraffin embedded tissue was submitted to [facility] for confirmatory immunoperoxidase stains. The slides are reviewed at [facility]. The controls stain appropriately. The malignant cells are shown to be strongly and diffusely positive for CK7, Napsin A and TTF-1. This immunoperoxidase staining pattern supports the diagnosis of adenocarcinoma of pulmonary origin. Clinical correlation is necessary. CONTINUED ON NEXT PAGE ------ ------RUN DATE: 03/06/19 [place] [facility] PAGE 2 RUN TIME: 1817 Specimen Inquiry RUN USER: INTERFACE SPEC #: [id number] PATIENT: BILL CHAMBERLAIN #[id number] (Continued) FINAL DIAGNOSIS Lung, right lower lobe nodule, biopsy with touch prep: ADENOCARCINOMA COMPATIBLE WITH PULMONARY PRIMARY, see comment RRB/sm D 27332, 06880, 14934s5, 85093j3 MACROSCOPIC The specimen is received in formalin, labeled with the patient's name, and identified as "right lower lobe lung nodule". It consists of minute portions of tansoft tissue ranging from less than 0.1 to 0.3 cm. It is entirely submitted in a single cassette.A touchprep slide is also received for processing. GROSS PERFORMED AT [facility] [address] [place] [address] [phone] MICROSCOPIC All of the stains, including any controls performed, stain appropriately. MICROSCOPIC PERFORMED AT [facility] [address] [place] [address] [phone])[phone] PERFORMING SITE Diagnosis performed at: [facility], [place] [address] [place] [address] Signed SIGNATURE ON FILE Travon Hu MD 03/06/19 1818 END OF REPORT - XR CHEST 2 [id number] 15:06:00 FAX: Lambert Farrell MD [phone] [place]: St: [facility] FAX: Moises Jeronimo [phone] FAX: João Trinidad [phone] Name: BILL CHAMBERLAIN [facility] : 1940 Age/S: 78/F [address] [facility] Unit #: [id number] Loc: V.[address] [place] [address] Phys: Lambert Canada MD Acct: [id number] Dis Date: Status: ADM IN PHONE #: [phone] Exam Date: 03/05/2019 1445 FAX #: [phone] Reason: COPD prior pneumothorax EXAMS: CPT CODE: [id number] XR CHEST 2 V 97568 HISTORY: COPD. COMPARISON: Previous day. Location: TH. [...] lungs are clear. COPD and scarring. at 1504 Reported and signed by: Manuel Hu M.D. CC: Lambert Canada MD; Aaron Jeronimo MD; João Zambrano MD Technologist: ROSANNA CROW(R) Trnscrd Date/Time/By: 03/05/2019 (7667) : By: [email or web address] Orig Print D/T: S: 03/05/2019 (5910) PAGE 1 Signed ReportBASIC METABOLIC [id number] 04:57:00 Test Item Value Reference Range Interpretation [...] GFR) formula.Chronic kidney disease is defined as ei er kidney damageor GFR <60 mL/min/1.73 m2 for >3 months. CREATININE (test code 0.70 mg/dL 0.55-1.02 N Note change in = CREAT) reference range due to change in reagent. BUN/CREATININE RATIO 25.4 10-20 H (test code = BUN/CREA) CALCIUM (test code = 8.9 mg/dL 8.5-10.1 N CA) PT REFUSED NOTIFIED KARRI JOE ([id number]) V.LAB. BASIC METABOLIC [id number] 04:47:00 Test Item Value Reference Range Interpretation [...] mg/dL 8.5-10.1 PT REFUSED NOTIFIED KARRI JOE ([id number]) V.LAB. 125CBC W/AUTO DIFF 2019-03-05 04:44:00 Test Item Value [...] N NRBC#) PT REFUSED NOTIFIED KARRI JOE ([id number]) V.LAB. 03/05/436194AHE W/AUTO DIFF 2019-03-04 10:50:00 Test Item Value [...] 0.0-0.1 N NRBC#) - XR CHEST 1 [id number] 08:11:00 FAX: Lambert Farrell MD [phone] [place]: St: ADM FAX: Moises Jeronimo [phone] FAX: João Trinidad [phone] Name: BILL CHAMBERLAIN [facility] : 1940 Age/S: 78/F [address] [facility] [id number] Loc: V.[address] [place] [address] Phys: Aaron Jeronimo MD Acct: [id number] Dis Date: Status: ADM IN PHONE #: [phone] Exam Date: 03/04/2019 0730 FAX #: [phone] Reason: pneumothorax EXAMS: CPT CODE: [id number] XR CHEST 1 V 49890 REASON FOR EXAM: pneumothorax Exam Order Date: 03/04/2019 6:00 AM Ordering MJudie: Aaron Jeronimo MD PROCEDURE: - XR CHEST [...] size. Remaining findings are also unchanged. Location: [facility] at 0811 Reported and signed by: Sg Klein MD CC: Lambert Canada MD; Aaron Jeronimo MD; João Zambrano MD Technologist: ROSANNA HU RT(R) Trnscrd Date/Time/By: 03/04/2019 (810) : By: [email or web address] Orig Print D/T: S: 03/04/2019 (813) PAGE 1 Signed Report- XR CHEST 1 [id number] 17:58:00 [place]: St: ADM Name: BILL CHAMBERLAIN [facility] : 1940 Age/S: 78/F [address] [facility] Unit#: [id number] Loc: V.[address] [place] [address] Phys: João Zambrano MD Acct: [id number] Dis Date: Status: ADM IN PHONE #: [phone] Exam Date: 03/03/2019 6234 FAX #: [phone] Reason: POST TUBE CHEST REMOVAL EXAMS: CPT CODE: [id number] XR CHEST 1 V 49064 HISTORY: Chest tube removal. COMPARISON: Same day. Location: [facility]. No acute infiltrates, effusion or congestion is noted. Trace less than 2% apical pneumothorax on the right is unchanged. Lung scarring. Cardiomegaly. Kyphoplasty change in the mid dorsal spine. IMPRESSION: No acute infiltrates, effusion or congestion. Trace less than 2% right apical pneumothorax is unchanged from previous exam. at 1758 Reported and signed by: Manuel Hu M.D. CC: Technologist: NADEEN MONTANEZ)Trnscjolie Date/Time/By: 03/03/2019 (6687) : By: [email or web address] Orig Print D/T: S: 03/03/2019 (5696) PAGE 1 Signed Report- XR CHEST 1 [id number] 14:36:00 FAX: Lambert Farrell MD [phone] [place]: St: ADM FAX: Moises Jeronimo [phone] FAX: João Trinidad [phone] Name: BILL CHAMBERLAIN [facility] : 1940 Age/S: 78/F [address] [facility] Unit #: [id number] Loc: V.[address] [place] [address] Phys: João Zambrano MD Acct: [id number] Dis Date: Status: ADM IN PHONE #: [phone] Exam Date: 03/03/2019 1425 FAX #: [phone] Reason: POST CHEST TUBE EXAMS: CPT CODE: [id number] XR CHEST 1 V 93316 HISTORY: Post chest tube placement. COMPARISON: Same day. Location: [facility]. Right chest tube is no longer seen. Trace 2% apical pneumothorax is still visible. Lungs are clear. Lung nodule in the right lower lobe isnot clearly visible. Kyphoplasty change in the dorsal spine. Cardiac silhouette is mildly enlarged IMPRESSION: Right chest tube is no longer seen. Trace 2% left apical pneumothorax. at 1436 Reported and signed by: Manuel Hu M.D. CC: Lambert Canada MD; Aaron Jeronimo MD; João Zambrano MD Technologist: RT LISSETH(Kristina) TrnscrdDate/Time/By: 03/03/2019 (4421) : By: [email or web address] Orig Print D/T: S: 03/03/2019 (0532) PAGE 1 Signed Report- XR CHEST 1 [id number] 07:59:00 FAX: Lambert Farrell MD [phone] [place]: St: ADM FAX: Moises Jeronimo [phone] FAX: João Trinidad [phone] Name: BILL CHAMBERLAIN [facility] : 1940 Age/S: 78/F [address] [facility] Unit #: [id number] Loc: V.[address] [place] [address] Phys: Aaron Jeronimo MD Acct: [id number] Dis Date: Status: ADM IN PHONE #: [phone] Exam Date: 03/03/2019709 FAX #: [phone] Reason: pneumothorax EXAMS: CPT CODE: [id number] XR CHEST 1 V 19324 CLINICAL HISTORY: pneumothorax TECHNIQUE: AP chest x-ray [...] By: [email or web address] Orig Print D/T: S: 03/03/2019 (0895) PAGE 1 Signed ReportBASIC METABOLIC [id number] 03:01:00 Test Item Value Reference Range Interpretation [...] GFR) formula.Chronic kidney disease is defined as ei er kidney damageor GFR <60 mL/min/1.73 m2 for >3 months. CREATININE (test code 0.60 mg/dL 0.55-1.02 N Note change in = CREAT) reference range due to change in reagent. BUN/CREATININE RATIO 22.0 10-20 H (test code = BUN/CREA) CALCIUM (test code = 9.3 mg/dL 8.5-10.1 N CA) BASIC METABOLIC [id number] 02:57:00 Test Item Value Reference Range Interpretation [...] code = CA) mg/dL 8.5-10.1 CBC W/AUTO [id number] 02:38:00 Test Item Value Reference Range Interpretation [...] (test code NO = MDIFF) CBC W/AUTO [id number] 02:25:00 Test Item Value Reference Range Interpretation [...] BA#) K/mm3 0.0-0.2 - XR CHEST 1 [id number] 15:56:00 FAX: Lambert Farrell MD [phone] [place]: St: ADM FAX: João Triniadd [phone] Name: BILL CHAMBERLAIN [facility] : 1940 Age/S: 78/F [address] [facility] Unit #: [id number] Loc: V.[address] [place] [address] Phys: João Zambrano MD Acct: [id number] Dis Date: Status: ADM IN PHONE #: [phone] Exam Date: 03/02/2019 1527 FAX #: [phone] Reason: PTX post R lung bx; st.p. R chest tube; EXAMS: CPT CODE: [id number] XR CHEST 1 V 29275 HISTORY: Right biopsy and right chest tube. COMPARISON: March 02, 2019. Location: [facility]. Single view chest: Trace less than 5% right apical pneumothorax is noted again. Right chest tube noted again. Lung scarring with small left effusion. COPD. Fib rocalcific residuals in the upper lobes. Cardiomegaly. Kyphoplasty change in the mid dorsal spine. IMPRESSION: Trace less than 5% right apical pneumothorax despite presence of chest tube demonstrating no change. at 9301 Reported and signed by: Manuel Hu M.D. CC: Lambert Canada MD; João Zambrano MD Technologist: Spencer Castro RT(R) Trnnyrd Date/Time/By: 03/02/2019 (7363) : By: [email or web address] Orig Print D/T: S: 03/02/2019 (0216) PAGE 1 Signed Report- XR CHEST 1 V 2019-03-02 12:24:00 FAX: Lambert Farrell MD [phone] [place]: St: PRE FAX: João Trinidad [phone] Name: BILL CHAMBERLAIN [facility] : 1940 Age/S: 78/F [address] [facility] Unit #: [id number] Loc: [place] [address] Phys: João Zambrano MD Acct: [id number] Dis Date: Status: PRE SDC PHONE #: [phone] Exam Date: 03/02/2019 1203 FAX #: [phone] Reason: PNEUMOTHORAX/POST CHEST TUBE PLACEMENT EXAMS: CPT CODE: [id number] XR CHEST 1 V 23361 REASON FOR EXAM: PNEUMOTHORAX/POST CHEST TUBE PLACEMENT Exam Order Date: 03/02/2019 11:49 AM Ordering M.D.: João Zambrano MD PROCEDURE: - XR CHEST 1 V COMPARISON: CT chest and chest radiograph earlier today FINDINGS/ IMPRESSION: Interval placement of right pleural pigtail catheter with marked decrease in size of the right-sided pneumothorax. Remaining findings are unchanged. Location: [facility] at 1224 Reported and signed by: Sg Klein MD CC: Lambert Canada MD; João Zambrano MD Technologist: BRANNON FOX, RT(R) Trnscrd Date/Time/By: 03/02/2019 (9217) : By: [email or web address] Orig Print D/T: S: 03/02/2019 (0600) PAGE 1 Signed Report- XR CHEST 1 V 2019-03-02 12:03:00 FAX: Lambert Farrell MD [phone] [place]: St: PRE FAX: João Trinidad [phone] Name: BILL CHAMBERLAIN [facility] : 1940 Age/S: 78/F [address] Unit #: [id number] Loc: [place] [address] Phys: João Zambrano MD Acct: [id number] Dis Date: Status: PRE SDC PHONE #: [phone] Exam Date: 03/02/2019 1130 FAX #: [phone] Reason: POST THORA EXAMS: CPT CODE: [id number] XR CHEST 1 V 71560 REASON FOR EXAM: POST THORA Exam Order Date: 03/02/2019 11:24 AM Ordering M.D.: João Zambrano MD PROCEDURE: - XR CHEST [...] IMPRESSION: Moderate right-sided pneumothorax following thoracentesis. Location: [facility] at 1203 Reported and signed by: Sg Klein MD CC: Lambert Canada MD; João Zambrano MD Technologist: RT TIMOTEO(R) [facility] Date/Time/By: 03/02/2019 (4404) : By: [email or web address] Orig Print D/T: S: 03/02/2019 (4577) PAGE 1 Signed ReportPROTHROMBIN TIME 2019-03-01 15:04:00 [...] TOMORROW FOR RECOLLECT OFBLUE TOP TUBE. V.LAB. 02/28/191829THROMBOPLASTIN TIME [id number] 15:04:00 Test Item Value Reference Range Interpretation [...] (test code NO = MDIFF) CBC W/AUTO [id number] 17:01:00 Test Item Value Reference Range Interpretation [...] = BA#) K/mm3 0.0-0.2 - PET/CT TUMOR SK BS [id number] 14:59:00 FAX: Lambert Farrell MD [phone] [place]: St: DEP Name: BILL CHAMBERLAIN [facility] : 1940 Age/S: 78/F [address] [facility] Unit#: [id number] Loc: [place] [address] Phys: Lambert Canada MD Acct: [id number] Dis Date: Status: [facility] CLI PHONE #: [phone] Exam Date: 02/13/2019 1205 FAX #: [phone] Reason: RLL NODULE EXAMS: CPT CODE: [id number] PET/CT TUMOR [facility] [address] HISTORY: Right lower lobe lung nodule. COMPARISON: CT chest from May 15, 2010. Location: [facility]. PET/CT SCAN: 10.5 mCi of FDG [...] 5.1 suspicious for malignancy. No metastases. at 1459 Reported and signed by: Manuel Hu M.D. CC: Lambert Canada MD Technologist: Annel Cowart RT(N) Trnscrd Date/Time/By: 02/26/2019 (8940): By: [email or web address] Orig Print D/T: S: 02/26/2019 (0964) PAGE 1 Signed ReportCHEST 2 [id number] 11:42:00 [place] [address] Patient Name: BILL CHAMBERLAIN MR #: [id number] : 1940 Age/Sex: 78/F Req #: [id number] Adm Physician: Ordered by: RACHEL OLMOS MD Report #: [id number] Location: [facility] Room/Bed: Procedure: [id number] DX/CHEST 2 VIEWS Exam Date: 11/23/18 Exam [...] By: KERI on 11/23/18 1150 COPY TO: RAHCEL OLMOS MDTROPONIN-I 2018-11-22 04:20:00 Test Item Value Reference Range Interpretation Comments TROPONIN-I (test code = TROPI) <0.015 ng/mL 0-0.045 N COMMENTS TO WAREHOUSE MANAGER: COLLECT 3 HOURS AFTER PREVIOUS [id number] 22:26:00 Test Item Value Reference Range Interpretation Comments TROPONIN-I (test code = TROPI) <0.015 ng/mL 0-0.045 N COMMENTS TO WAREHOUSE MANAGER: COLLECT 3 HOURS AFTER PREVIOUS SAMPLEB-TYPE NATRIURETIC [id number] 13:40:00 Test Item Value Reference Range Interpretation Comments B-TYPE NATRIURETIC PEPTIDE 45.85 pgram/mL 0-100 N (test code = BNP) BASIC METABOLIC [id number] 13:23:00 Test Item Value Reference Range Interpretation [...] 9.5 mg/dL 8.5-10.1 N CA) HEPATIC FUNCTION [id number] 13:23:00 Test Item Value Reference Range Interpretation [...] range due ALKP) to change in reagent. [id number] 13:23:00 Test Item Value Reference Range Interpretation Comments LIPASE (test code = LIP) 358 U/L 73.0-393.0 N [id number] 13:23:00 Test Item Value Reference Range Interpretation Comments TROPONIN-I (test code = TROPI) <0.015 ng/mL 0-0.045 N - XR CHEST 1 [id number] 13:15:00 FAX: Orestes Washington [place]: B St: REG Name: BILL CHAMBERLAIN [facility] : 1940 Age/S: 78/F [address] [facility] Unit#: [id number] Loc: [place] [address] Phys: Orestes Washington MD Acct: [id number] Dis Date: Status: REG ER PHONE #: [phone] Exam Date: 11/21/2018 1235 FAX #: [phone] Reason: CHEST PAIN EXAMS: CPT CODE: [id number] XR CHEST 1 V 55905 REASON FOR EXAM: CHEST PAIN EXAM ORDER DATE: 11/21/2018 12:05 PM Ordering Laurita: Orestes Washington MD PROCEDURE:- XR CHEST 1 [...] M.D. CC: Orestes Fonseca MD Technologist: Roxanne Jane(R) Trnscrd Date/Time/By: 11/21/2018 (5880) : By: [email or web address] Orig Print D/T: S: 11/21/2018 (5447) PAGE 1 Signed ReportPROTHROMBIN [id number] 13:13:00 Test Item Value Reference Range Interpretation [...] (2.0-3.0)Venou s thrombosis treatmentVenous thrombosis prophylaxis (hi risk surgery)Prevent ion of systemic emboli sm from: A cute myocardial infa rction Valvula r heart disease Atrial fibrilla tion Mechanical pros thetic heart valves (2.5-3.5) IS PATIENT ON ANTICOAGULANTS? NTHROMBOPLASTIN TIME [id number] 13:13:00 Test Item Value Reference Range Interpretation Comments THROMBOPLASTIN TIME PARTIAL 29.2 seconds 25.0-36.5 N (test code = PTT) IS PATIENT ON ANTICOAGULANTS? NBASIC METABOLIC [id number] 13:12:00 Test Item Value Reference Range Interpretation [...] code = CA) mg/dL 8.5-10.1 HEPATIC FUNCTION [id number] 13:12:00 Test Item Value Reference Range Interpretation [...] TOTAL (test IUnit/L 45-117 code = ALKP) [id number] 13:12:00 Test Item Value Reference Range Interpretation Comments LIPASE (test code = LIP) U/L 73.0-393.0 [id number] 13:12:00 Test Item Value Reference Range Interpretation Comments TROPONIN-I (test code = TROPI) ng/mL 0-0.045 CBC W/O [id number] 12:57:00 Test Item Value Reference Range Interpretation [...] fL 6.7-11.0 N = MPV) CHEST 2 [id number] 15:36:00 [place] [address] Patient Name: BILL CHAMBERLAIN MR #: [id number] : 1940 Age/Sex: 77/F Req #: [id number] Adm Physician: Ordered by: RACHEL OLMOS MD Report #: [id number] Location: [facility] Room/Bed: Procedure: [id number] DX/CHEST 2 VIEWS Exam Date: 06/27/18 Exam [...] 3:40 PM Dictated By: SONAL HDEZ MD 1540 Transcribed By: KERI on 540 COPY TO: RACHEL OLMOS MD Differential Total Cells [id number] 08:59:00 Test Item Value Reference Range Interpretation Comments Differential Total Cells Counted (test 100 code = Differential Total Cells Counted) [facility]ual)2017-06-05 08:59:00 Test Item Value Reference Range Interpretation Comments Neutrophils % (Manual) (test code = 81 40-74 H 02172-2) [facility] HospitalBand Neutrophils %2017-06-05 08:59:00 Test Item Value Reference Range Interpretation Comments Band Neutrophils % (test code = 764-1) 2 [facility] HospitalLymphocytes % (Manual)2017-06-05 08:59:00 Test Item Value Reference Range Interpretation Comments Lymphocytes % (Manual) (test code = 9 19-48 L 737-7) [facility] HospitalMonocytes % (Manual)2017-06-05 08:59:00 Test Item Value Reference Range Interpretation Comments Monocytes % (Manual) (test code = 8 3.4-9.0 744-3) [facility] HospitalPlatelet [id number] 08:59:00 Test Item Value Reference Range Interpretation Comments Platelet Estimate (test code = ADEQUATE 72346-8) [facility] HospitalPlatelet Morphology [id number] 08:59:00 Test Item Value Reference Range Interpretation Comments Platelet Morphology Comment (test code NORMAL = 95360-7) [facility] HospitalRed Cell Morphology Iwnvqve9209-11-23 08:59:00 Test Item Value Reference Range Interpretation Comments Red Cell Morphology Comment (test code NORMAL = 6742-1) [facility] [id number] 07:32:00 Test Item Value Reference Range Interpretation Comments Sodium Level (test code = 2951-2) 139 136-145 [facility] HospitalPotassium [id number] 07:32:00 Test Item Value Reference Range Interpretation Comments Potassium Level (test code = 2823-3) 4.5 3.5-5.1 [facility] HospitalChloride [id number] 07:32:00 Test Item Value Reference Range Interpretation Comments Chloride Level (test code = 2075-0) 98 98-107 [facility] HospitalCarbon Dioxide [id number] 07:32:00 Test Item Value Reference Range Interpretation Comments Carbon Dioxide Level (test code = 37 22-29 H 2027-) [facility] HospitalAnion Yzf6094-02-01 07:32:00 Test Item Value Reference Range Interpretation Comments Anion Gap (test code = 26346-6) 8.5 8-16 [facility] HospitalBlood Urea [id number] 07:32:00 Test Item Value Reference Range Interpretation Comments Blood Urea Nitrogen (test code = 21 7-26 3094-0) [facility] HospitalCreatinine2018-03-10 07:32:00 Test Item Value Reference Range Interpretation Comments Creatinine (test code = 2160-0) 0.56 0.57-1.11 L [facility] HospitalBUN/Creatinine [id number] 07:32:00 Test Item Value Reference Range Interpretation Comments BUN/Creatinine Ratio (test code = 38 6-25 H 3097-3) [facility] HospitalEstimat Glomerular Filtration Rate 2017-06-05 07:32:00 Test Item Value Reference Range Interpretation Comments Estimat Glomerular Filtration Rate 60- >60 (test code = 96555-1) Ranges were taken from the National Kidney Disease Education Program and the National Kidney Foundation literature.Reference ranges:60 or greater: Twnfvh37- 59 (for 3 consecutive months): Chronic kidneydisease 15 or less: Kidney failure [facility] HospitalGlucose Ocydx8880-65-64 07:32:00 Test Item Value Reference Range Interpretation Comments Glucose Level (test code = RLE0909) 76 74-118 [facility] HospitalCalcium Avkvu9641-96-94 07:32:00 Test Item Value Reference Range Interpretation Comments Calcium Level (test code = 50994-5) 8.3 8.4-10.2 L [facility] HospitalWhite Blood Suomo0292-10-90 07:10:00 Test Item Value Reference Range Interpretation Comments White Blood Count (test code = 6690-2) 9.47 4.8-10.8 [facility] HospitalRed Blood [id number] 07:10:00 Test Item Value Reference Range Interpretation Comments Red Blood Count (test code = 789-8) 3.58 3.6-5.1 L [facility] HospitalHemoglobin2018-03-10 07:10:00 Test Item Value Reference Range Interpretation Comments Hemoglobin (test code = 15503-4) 10.9 12.0-16.0 L [facility] HospitalHematocrit2018-03-10 07:10:00 Test Item Value Reference Range Interpretation Comments Hematocrit (test code = 4544-3) 33.8 34.2-44.1 L [facility] HospitalMean Corpuscular Uwyhwk3425-29-68 07:10:00 Test Item Value Reference Range Interpretation Comments Mean Corpuscular Volume (test code = 94.4 81-99 787-2) [facility] HospitalMean Corpuscular Lknmphhcud6462-04-47 07:10:00 Test Item Value Reference Range Interpretation Comments Mean Corpuscular Hemoglobin (test code 30.4 28-32 = 785-6) [facility] HospitalMean Corpuscular Hemoglobin Concent 2017-06-05 07:10:00 Test Item Value Reference Range Interpretation Comments Mean Corpuscular Hemoglobin Concent 32.2 31-35 (test code = 786-4) [facility] HospitalRed Cell Distribution Zldye5563-80-28 07:10:00 Test Item Value Reference Range Interpretation Comments Red Cell Distribution Width (test code 14.6 11.7-14.4 H = 05456-6) [facility] HospitalPlatelet Dhnvz2679-58-10 07:10:00 Test Item Value Reference Range Interpretation Comments Platelet Count (test code = 777-3) 337 140-360 [facility] HospitalNeutrophils (%) (Auto)2017-06-05 07:10:00 Test Item Value Reference Range Interpretation Comments Neutrophils (%) (Auto) (test code = 70.6 38.7-80.0 57612-2) [facility] HospitalLymphocytes (%) (Auto)2017-06-05 07:10:00 Test Item Value Reference Range Interpretation Comments Lymphocytes (%) (Auto) (test code = 13.8 18.0-39.1 L 736-9) [facility] HospitalMonocytes (%) (Auto)2017-06-05 07:10:00 Test Item Value Reference Range Interpretation Comments Monocytes (%) (Auto) (test code = 7.2 4.4-11.3 5905-5) [facility] HospitalEosinophils (%) (Auto)2017-06-05 07:10:00 Test Item Value Reference Range Interpretation Comments Eosinophils (%) (Auto) (test code = 0.8 0.0-6.0 713-8) [facility] HospitalBasophils (%) (Auto)2017-06-05 07:10:00 Test Item Value Reference Range Interpretation Comments Basophils (%) (Auto) (test code = 0.6 0.0-1.0 706-2) [facility] HospitalIM GRANULOCYTES %2017-06-05 07:10:00 Test Item Value Reference Range Interpretation Comments IM GRANULOCYTES % (test code = IM 7.0 0.0-1.0 H GRANULOCYTES %) [facility] HospitalNeutrophils # (Auto)2017-06-05 07:10:00 Test Item Value Reference Range Interpretation Comments Neutrophils # (Auto) (test code = 6.7 2.1-6.9 751-8) [facility] HospitalLymphocytes # (Auto)2017-06-05 07:10:00 Test Item Value Reference Range Interpretation Comments Lymphocytes # (Auto) (test code = 1.3 1.0-3.2 38533-4) [facility] HospitalMonocytes # (Auto)2017-06-05 07:10:00 Test Item Value Reference Range Interpretation Comments Monocytes # (Auto) (test code = 742-7) 0.7 0.2-0.8 [facility] HospitalEosinophils # (Auto)2017-06-05 07:10:00 Test Item Value Reference Range Interpretation Comments Eosinophils # (Auto) (test code = 0.1 0.0-0.4 711-2) [facility])2017-06-05 07:10:00 Test Item Value Reference Range Interpretation Comments Basophils # (Auto) (test code = 704-7) 0.1 0.0-0.1 [facility]Absolute Immature Granulocyte (auto 2017-06-05 07:10:00 Test Item Value Reference Range Interpretation Comments Absolute Immature Granulocyte (auto 0.66 0-0.1 H (test code = Absolute Immature Granulocyte (auto) [facility] HospitalVancomycin Level [id number] 11:10:00 Test Item Value Reference Range Interpretation Comments Vancomycin Level Trough (test code = 10.5 5.0-10.0 4092-3) Results called to DANIEL POWERS at 1109 on 06/04/17 by Janny Durán. RB [place].[facility] HospitalMetamyelocytes %2017-06-03 08:24:00 Test Item Value Reference Range Interpretation Comments Metamyelocytes % (test code = 740-1) 2 0-0 H [facility]Myelocytes %2017-06-03 08:24:00 Test Item Value Reference Range Interpretation Comments Myelocytes % (test code = 749-2) 1 0-0 H [facility] HospitalReactive [id number] 08:24:00 Test Item Value Reference Range Interpretation Comments Reactive Lymphocytes (test code = 2 35093-3) [facility] HospitalBlast Cells %2017-06-03 08:24:00 Test Item Value Reference Range Interpretation Comments Blast Cells % (test code = 27122-3) 1 [facility] HospitalHypochromasia2018-03-08 08:24:00 Test Item Value Reference Range Interpretation Comments Hypochromasia (test code = 728-6) SLIGHT [facility] HospitalBlood [id number] 06:03:00 Test Item Value Reference Range Interpretation Comments Blood Culture (test NO GROWTH AFTER 5 code = 87340935) DAYS, FINAL REPORT [facility] HospitalAnisocytosis2018-03-07 08:52:00 Test Item Value Reference Range Interpretation Comments Anisocytosis (test code = 702-1) SLIGHT [facility] HospitalTotal [id number] 06:39:00 Test Item Value Reference Range Interpretation Comments Total Bilirubin (test code = 1975-2) 0.3 0.2-1.2 [facility] HospitalAspartate Amino Transf (AST/SGOT) 2017-06-01 06:39:00 Test Item Value Reference Range Interpretation Comments Aspartate Amino Transf (AST/SGOT) (test 8 5-34 code = Aspartate Amino Transf (AST/SGOT)) [facility] HospitalAlanine Aminotransferase (ALT/SGPT) 2017-06-01 06:39:00 Test Item Value Reference Range Interpretation Comments Alanine Aminotransferase (ALT/SGPT) 10 0-55 (test code = 1742-6) [facility] HospitalTotal [id number] 06:39:00 Test Item Value Reference Range Interpretation Comments Total Protein (test code = 2885-2) 5.3 6.5-8.1 L [facility] HospitalAlbumin2018-03-06 06:39:00 Test Item Value Reference Range Interpretation Comments Albumin (test code = 1751-7) 2.0 3.5-5.0 L [facility] HospitalGlobulin2018-03-06 06:39:00 Test Item Value Reference Range Interpretation Comments Globulin (test code = 85735-7) 3.3 2.3-3.5 [facility] HospitalAlbumin/Globulin Caune2250-13-13 06:39:00 Test Item Value Reference Range Interpretation Comments Albumin/Globulin Ratio (test code = 0.6 0.8-2.0 L 1759-0) [facility] HospitalAlkaline [id number] 06:39:00 Test Item Value Reference Range Interpretation Comments Alkaline Phosphatase (test code = 53 40-150 6768-6) [facility] HospitalPoikilocytosis2018-03-05 08:35:00 Test Item Value Reference Range Interpretation Comments Poikilocytosis (test code = 779-9) SLIGHT [facility] HospitalMacrocytosis2018-03-02 11:03:00 Test Item Value Reference Range Interpretation Comments Macrocytosis (test code = 738-5) SLIGHT [facility] HospitalLactic Acid [id number] 09:40:00 Test Item Value Reference Range Interpretation Comments Lactic Acid Level (test code = Lactic 14.2 4.5-19.8 Acid Level) [facility]CHE[facility] [address] [facility] [address] [place] [address] Patient Name: BILL CHAMBERLAIN MR #: [id number] : 1940 Age/Sex: 76/F Req #: [id number] Adm Physician: RACHEL OLMOS MD Ordered by: RACHEL OLMOS MD Report #:[id number] Location: MED/SURG Room/Bed: 114-1 Procedure: [id number] DX/CHEST 2 VIEWS Exam Date: Exam Time: REPORT STATUS: Signed PROCEDURE: CHEST 2 VIEWS TECHNIQUE: PA and lateral chest INDICATION: Pneumonia COMPARISON: [facility], DX, CHEST SINGLE (PORTABLE), 05/31/2017, 6:25. FINDINGS: [...] on 06/03/17 1311 COPY TO: RACHEL OLMOS [facility] SINGLE (PORTABLE) [place] [address] Patient Name: BILL CHAMBERLAIN MR #: [id number] : 1940 Age/Sex: 76/F Req #: [id number] Adm Physician: RACHEL OLMOS MD Ordered by: RACHEL OLMOS MD Report #:[id number] Location: [facility] Room/Bed: [facility] 188-1 Procedure: DX/CHEST SINGLE (PORTABLE) Exam Date: Exam Time: [...] 6:46 AM Dictated By: NANCY JACKSON MD Transcribed By: KERI on 05/31/17645 COPY TO: RACHEL OLMOS [facility] SINGLE (PORTABLE) [place] [address] Patient Name: BILL CHAMBERLAIN MR #: [id number] : 1940 Age/Sex: 76/F Req #: [id number] Adm Physician: RACHEL OLMOS MD Ordered by: RACHEL OLMOS MD Report #:[id number] Location: [facility] Room/Bed: [place] [address] Procedure: [id number] DX/CHEST SINGLE (PORTABLE) Exam Date: 05/29/17 Exam [...]
[2020-07-01] MEDS ORDERED: FENTANYL CITR 100 MCG/2 ML ONE (13:55)
[2020-07-01] MEDS ORDERED: ONDANSETRON 4 MG/2 ML VIAL ONE (13:56)
[2020-07-01] MEDS ORDERED: LIDOCAINE 4% PATCH ONE (14:33)
--- NOTE | 2020-07-01 14:48 | EDPHYS ---
Physician Documentation [facility] Name: Mary Morataya Age: 80 yrs Sex: Female : 1940 Arrival Date: 07/01/2020 Time: 13:02 Bed 6 Private MD: ED Physician Jared Augustin HPI: 07/01 13:26 This 80 yrs old Female presents to ER via EMS with complaints of Back Pain, pm1 old compression fx. 13:26 The patient presents with pain. The symptoms are located in the low back. Onset: The pm1 symptoms/episode began/occurred Chronic back pain that has gotten worse. she had a sneezing fit yesterday that made the back pain worse. No recent falls or trauma. The pain does not radiate. Associated signs and symptoms: Pertinent negatives: abdominal pain, dysuria, fever, incontinence, numbness, tingling, weakness. Modifying factors: The patient symptoms are alleviated by remaining still, the patient symptoms are aggravated by movement. Severity of symptoms: in the emergency department the symptoms are actually worse. The patient has experienced similar episodes in the past, chronically. Patient reports her tramadol at home is not helping. Historical: - Allergies: 13:06 PENICILLINS; tw2 13:06 Tetanus Vaccines \T\ Toxoid; tw2 - PMHx: 13:06 Pneumonia; COPD; tw2 - PSHx: 13:06 hip surgery; tw2 - Immunization history:: Adult Immunizations. - Social history:: Smoking status: . ROS: 13:26 Constitutional: Negative for fever, chills, and weight loss. pm1 13:26 Cardiovascular: Negative for chest pain, palpitations, and edema, Respiratory: Negative pm1 for shortness of breath, cough, wheezing, and pleuritic chest pain, Abdomen/GI: Negative for abdominal pain, nausea, vomiting, diarrhea, and constipation. 13:26 MS/Extremity: Negative for injury and deformity, Skin: Negative for injury, rash, and discoloration, Neuro: Negative for headache, weakness, numbness, tingling, and seizure. 13:26 Back: Positive for of the lumbar area, pain, Negative for injury or acute deformity, radiated pain. 13:26 : Negative for urinary symptoms, incontinence. Exam: 13:26 Constitutional: This is a well developed, well nourished patient who is awake, alert, pm1 and in no acute distress. Head/Face: Normocephalic, atraumatic. Neck: Trachea midline, no thyromegaly or masses palpated, and no cervical lymphadenopathy. Supple, full range of motion without nuchal rigidity, or vertebral point tenderness. No Meningismus. 13:26 MS/ Extremity: Pulses equal, no cyanosis. Neurovascular intact. Full, normal range of motion. 13:26 Cardiovascular: Rate: normal, Rhythm: regular, Pulses: no pulse deficits are appreciated. 13:26 Respiratory: Exam negative for acute changes, respiratory distress, shortness of breath, Breath sounds: are clear throughout. 13:26 Abdomen/GI: Inspection: abdomen appears normal, Palpation: abdomen is soft and non-tender, in all quadrants. 13:26 Back: vertebral tenderness, is appreciated at lumbar spine, muscle spasm, is appreciated in the left low back and right low back. 13:26 Neuro: Exam negative for acute changes, Orientation: is normal, Mentation: is normal, Motor: is normal, moves all fours, strength is 5/5 in all extremities, patient able to actively move legs FROM, Sensation: is normal, no obvious gross deficits. Vital Signs: 13:03 BP 176 / 67; Pulse 92; Resp 17; Temp 97.9(TE); Pulse Ox 95% on R/A; Weight 45.36 kg tw2 (R); Pain 10/10; 14:05 BP 176 / 91; Pulse 103; Resp 20; Pulse Ox 92% on 2 lpm NC; tw2 14:33 BP 154 / 77; Pulse 93; Resp 17; Pulse Ox 99% on 2 lpm NC; tw2 14:05 will continue to monitor tw2 MDM: 13:08 Patient medically screened. pm1 14:32 ED course: Patient reports significant improvement in pain to 6/10. Will give the pm1 patient additional pain medication. 14:46 Data reviewed: vital signs. Data interpreted: Pulse oximetry: on room air is 99 %. pm1 Interpretation: normal. Counseling: I had a detailed discussion with the patient and/or guardian regarding: the historical points, exam findings, and any diagnostic results supporting the discharge/admit diagnosis, the need for outpatient follow up, a neurosurgeon, a ski edge painter, to return to the emergency department if symptoms worsen or persist or if there are any questions or concerns that arise at home. 14:48 ED course: FIRESETTER aware reviewed. pm1 07/01 13:16 Order name: IV Saline Lock; Complete Time: 13:37 pm1 Administered Medications: 13:53 Not Given (Physician Discretion): fentaNYL (PF) 50 mcg IVP once; RASS on ADMIN: pm1 Combtv4, Very Agttd3, Agttd2, Rstlss1, AlertClm0, Drwsy-1, Lt Sdtn-2, Mod Sdtn-3, Dp Sdtn-4, UnArsble-5 13:53 Not Given (Physician Discretion): Zofran (Ondansetron) 4 mg IVP once; over 2 minutes pm1 13:55 CANCELLED (Physician Discretion): fentaNYL (PF) 25 mcg IM once; RASS on ADMIN: Combtv4, pm1 Very Agttd3, Agttd2, Rstlss1, AlertClm0, Drwsy-1, Lt Sdtn-2, Mod Sdtn-3, Dp Sdtn-4, UnArsble-5 13:56 Not Given (Physician Discretion): Ondansetron (Zofran) 4 mg PO once pm1 14:01 Drug: fentaNYL (PF) 50 mcg Route: IM; Site: right deltoid; hb 14:35 Follow up: Response: No adverse reaction hb 14:02 Drug: Zofran 4 mg Route: IM; Site: right ventrogluteal; hb 14:35 Follow up: Response: No adverse reaction hb 14:19 Drug: Lidoderm 5 % (700 mg/patch) 1 patches Route: Topical; Site: affected area; hb 14:50 Drug: HYDROcodone-acetaminophen 5 mg-325 mg 1 tabs Route: PO; tw2 15:46 Follow up: Response: No adverse reaction; Pain is decreased; RASS: Alert and Calm (0) tw2 Disposition: 15:52 Co-signature as Attending Physician, Jared Augustin MD. rn Disposition: 07/01/20 14:47 Discharged to Home. Impression: Low back pain. - Condition is Stable. - Discharge Instructions: Back Pain, Adult, Chronic Back Pain. - Prescriptions for Tylenol- Codeine #3 300-30 mg Oral Tablet - take 2 tablets by ORAL route every 4-6 hours As needed; 20 tablet. - Medication Reconciliation Form, Thank You Letter, Antibiotic Education, Prescription Opioid Use form. - Follow up: Emergency Department; When: As needed; Reason: Worsening of condition. Follow up: Private Physician; When: 2 - 3 days; Reason: Recheck today's complaints, Continuance of care, Re-evaluation by your physician. - Problem is new. - Symptoms have improved. Signatures: Jared Augustin MD MD rn Marinas, Patrick, SHIP PURSER SHIP PURSER pm1 Tegan Anguiano RN RN Natalie Root RN RN tw2 Corrections: (The following items were deleted from the chart) 13:55 13:54 fentaNYL (PF) 25 mcg IM once; RASS on ADMIN: Combtv4, Very Agttd3, Agttd2, pm1 Rstlss1, AlertClm0, Drwsy-1, Lt Sdtn-2, Mod Sdtn-3, Dp Sdtn-4, UnArsble-5 ordered. pm1 15:47 14:47 07/01/2020 14:47 Discharged to Home. Impression: Low back pain. Condition is tw2 Stable. Forms are Medication Reconciliation Form, Thank You Letter, Antibiotic Education, Prescription Opioid Use. Follow up: Emergency Department; When: As needed; Reason: Worsening of condition. Follow up: Private Physician; When: 2 - 3 days; Reason: Recheck today's complaints, Continuance of care, Re-evaluation by your physician. Problem is new. Symptoms have improved. pm1 18:22 13:26 Neuro: Exam negative for acute changes, Orientation: is normal, Mentation: is pm1 normal, Motor: is normal, moves all fours, Sensation: is normal, no obvious gross deficits, pm1
--- NOTE | 2020-07-01 14:48 | ER ---
Nurse's Notes [facility] Name: Mary Morataya Age: 80 yrs Sex: Female : 1940 Arrival Date: 07/01/2020 Time: 13:02 Bed 6 Private MD: Diagnosis: Low back pain Presentation: 07/01 13:03 Chief complaint: EMS states: pt from home, in March suffered a compression fx of tw2 L1-2, said the last couple of days pain has increased, was given tramadol, it is not helping at all, also stated had a sneezing episode yesterday and since then requires help standing, moving, etc because of the pain, vs stable, is hypertensive today, states normally is not its just because of pain. Coronavirus screen: At this time, the client does not indicate any symptoms associated with coronavirus-19. Ebola Screen: Patient denies travel to an Ebola-affected area in the 21 days before illness onset. Initial Sepsis Screen: Does the patient meet any 2 criteria? HR > 90 bpm. No. Patient's initial sepsis screen is negative. Does the patient have a suspected source of infection? No. Patient's initial sepsis screen is negative. Risk Assessment: Do you want to hurt yourself or someone else? Patient reports no desire to harm self or others. Onset of symptoms was July 01, 2020. 13:03 Method Of Arrival: EMS: [facility] tw2 13:03 Acuity: TIMOTHY 3 tw2 13:07 Note pt requesting "can you just please give me something for pain", provider notified. tw2 Triage Assessment: 13:06 General: Appears in no apparent distress. uncomfortable, slender, Behavior is calm, tw2 cooperative, appropriate for age. Pain: Complains of pain in lumbar area, left low back and right low back. EENT: No signs and/or symptoms were reported regarding the EENT system. Neuro: Level of Consciousness is awake, alert, obeys commands, Oriented to person, place, time, situation. Cardiovascular: Patient's skin is warm and dry. Respiratory: Airway is patent Respiratory effort is even, unlabored, Respiratory pattern is regular, symmetrical. GI: No signs and/or symptoms were reported involving the gastrointestinal system. Abdomen is flat. : No signs and/or symptoms were reported regarding the genitourinary system. Derm: No signs and/or symptoms reported regarding the dermatologic system. Musculoskeletal: Circulation, motion, and sensation intact. Reports pain in back since "past couple of days the pain has just gotten unbearable". Historical: - Allergies: 13:06 PENICILLINS; tw2 13:06 Tetanus Vaccines \\T\\ Toxoid; tw2 - PMHx: 13:06 Pneumonia; COPD; tw2 - PSHx: 13:06 hip surgery; tw2 - Immunization history:: Adult Immunizations. - Social history:: Smoking status: . Screenin:08 Abuse screen: Denies threats or abuse. Nutritional screening: No deficits noted. tw2 Tuberculosis screening: No symptoms or risk factors identified. Fall Risk Secondary diagnosis (15 points) impaired mobility. Assessment: 13:07 Reassessment: see triage assessment. tw2 14:45 Reassessment: Patient appears in no apparent distress at this time. No changes from tw2 previously documented assessment. Patient and/or family updated on plan of care and expected duration. Pain level reassessed. Patient is alert, oriented x 3, equal unlabored respirations, skin warm/dry/pink. 15:45 Reassessment: Patient appears in no apparent distress at this time. No changes from tw2 previously documented assessment. Patient and/or family updated on plan of care and expected duration. Pain level reassessed. Patient is alert, oriented x 3, equal unlabored respirations, skin warm/dry/pink. Vital Signs: 13:03 BP 176 / 67; Pulse 92; Resp 17; Temp 97.9(TE); Pulse Ox 95% on R/A; Weight 45.36 kg tw2 (R); Pain 10/10; 14:05 BP 176 / 91; Pulse 103; Resp 20; Pulse Ox 92% on 2 lpm NC; tw2 14:33 BP 154 / 77; Pulse 93; Resp 17; Pulse Ox 99% on 2 lpm NC; tw2 14:05 will continue to monitor tw2 ED Course: 13:00 Bed in low position. Call light in reach. cardiac monitor on. Pulse ox on. NIBP on. tw2 Warm blanket given. 13:02 Patient arrived in ED. tw2 13:05 Triage completed. tw2 13:06 Arm band placed on. tw2 13:08 [facility] pm1 13:08 Jared Augustin MD is Attending Physician. pm1 13:08 Natalie Root, KARRI is Primary Nurse. tw2 13:48 Missed attempt(s): 24 gauge in right hand. Bleeding controlled, band aid applied, hb catheter tip intact. 13:52 Missed attempt(s): 22 gauge in right antecubital area. Bleeding controlled, band aid hb applied, catheter tip intact. 15:10 Awaiting transportation, Awaiting: prior to discharge. tw2 15:44 No provider procedures requiring assistance completed. Patient did not have IV access tw2 during this emergency room visit. Administered Medications: 13:53 Not Given (Physician Discretion): fentaNYL (PF) 50 mcg IVP once; RASS on ADMIN: pm1 Combtv4, Very Agttd3, Agttd2, Rstlss1, AlertClm0, Drwsy-1, Lt Sdtn-2, Mod Sdtn-3, Dp Sdtn-4, UnArsble-5 13:53 Not Given (Physician Discretion): Zofran (Ondansetron) 4 mg IVP once; over 2 minutes pm1 13:55 CANCELLED (Physician Discretion): fentaNYL (PF) 25 mcg IM once; RASS on ADMIN: Combtv4, pm1 Very Agttd3, Agttd2, Rstlss1, AlertClm0, Drwsy-1, Lt Sdtn-2, Mod Sdtn-3, Dp Sdtn-4, UnArsble-5 13:56 Not Given (Physician Discretion): Ondansetron (Zofran) 4 mg PO once pm1 14:01 Drug: fentaNYL (PF) 50 mcg Route: IM; Site: right deltoid; hb 14:35 Follow up: Response: No adverse reaction hb 14:02 Drug: Zofran 4 mg Route: IM; Site: right ventrogluteal; hb 14:35 Follow up: Response: No adverse reaction hb 14:19 Drug: Lidoderm 5 % (700 mg/patch) 1 patches Route: Topical; Site: affected area; hb 14:50 Drug: HYDROcodone-acetaminophen 5 mg-325 mg 1 tabs Route: PO; tw2 15:46 Follow up: Response: No adverse reaction; Pain is decreased; RASS: Alert and Calm (0) tw2 Outcome: 14:47 Discharge ordered by MD. pm1 15:44 Discharged to home via wheelchair, with family. tw2 15:44 Condition: stable 15:44 Discharge instructions given to patient, family, Instructed on discharge instructions, follow up and referral plans. no drinking with medication, no driving heavy equipment, medication usage, Demonstrated understanding of instructions, follow-up care, medications, Prescriptions given X 1. 15:47 Patient left the ED. tw2 Signatures: Satish Magana NP HIGHBALLER pm1 Tegan Anguiano RN RN Natalie Root RN RN tw2 Corrections: (The following items were deleted from the chart) 14:34 14:33 BP 154 / 77; Pulse 93bpm; Resp 17bpm; Pulse Ox 99% RA; tw2 tw2
[2020-07-01] MEDS ORDERED: HYDROCODONE/APAP 5/325 MG TAB ONE (14:56)
[2020-07-01 16:19] VITALS: TEMP 97.9
[2020-07-01 16:22] VITALS: BP 154/77; O2SAT 99
== END 2020-07-01 15:47 | disposition home or self-care (01) ==
LOC: ER 12:32
DX: M54.5 Low back pain (principal); J44.9 Chronic obstructive pulmonary disease, unspecified
CPT/HCPCS: J3010; J2405; 96372; 99284

== ENCOUNTER 2020-09-24 13:30 | Emergency (ER) | payer OTHER ==
--- OUTSIDE RECORDS SUMMARY | 2020-09-24 13:34 | XMS REPORT | Continuity of Care Document ---
:1940 Author Organization [facility] t Address [address] [place] [address] Care Team Providers Name Role Phone AMARILIS IRENE Primary Care Physician Kristina Palma Attending Clinician AMARILIS Attending Clinician Unavailable AMARILIS Admitting Clinician Unavailable Payers Payer Name Policy Type Policy Number Effective Date Expiration Date S ource Medicare A & B [id number] 2005 [facility] 00:00:00 [facility] Problems Condition Condition Condition Status Onset Resolution Last Treating Co mments Source Name Details Category Date Date Treatment Clinician Date Pneumonia Pneumonia Problem Active [facility] - Patient s [facility] Allergies, Adverse Reactions, Alerts Allergy Allergy Status Severity Reaction(s) Onset Inactive Treating Comm ents Source Name Type Date Date Clinician deejay DA Active MO 2018-03 [facility] m 2-05 [place] 00[facility] e [facility] Procaine DA Active U 2019-0 [facility] HCl 8- [place] 00:[facility]: e [facility] Haloperi DA Active U 2019-0 [facility] dol 8-26 [place] Lactate 00:00: e 00 [facility] Penicill DA Active U 2019-0 [facility] ins 8-26 [place] 00:[facility]: e 00 [facility] Beef FA Active U 2019-0 [facility] Containi 8-26 [place] ng 00:00: e Products 00 [facility] Center codeine DA Active U 2019-0 [facility] 8-26 [place] 00:[facility]: e 00 [facility] mesalami DA Active U 2019-0 [facility] ne 8- [place] 00:[facility]: e 00 [facility] diethylt DA Active U 2019-0 [facility] oluamide 11-21 [place] 00:00: e 00 Medical [place] tetanus DA Active U 2019-0 [facility] immune 8- [place] globulin 00:00: e 00 [facility] [place] celery FA Active SV 2019-0 [facility] 8-26 [place] 00:00: e 00 [facility] Morphine Allergy Active 2017-[address] [facility] [facility] 3[facility]01 [facility]: Patient e 00 [facility] Procaine Allergy Active 2011-[address] [facility] HCl to 5-20 [facility]: Patient e 00 [facility] Penicill Allergy Active 2011-[address] [facility] [address] in to 5-20 [facility]: Patient e 00 [facility] Codeine Allergy Active 2011-[address] [facility] [address] to 5-20 [facility] 00:[facility]: Patient e 00 [facility] Procaine DA Active U 2010-0 [facility] HCl 2-18 [place] 00:00: e 00 [facility] [place] Haloperi DA Active U 2010-0 [facility] dol 2-18 [place] Lactate 00:00: e 00 [facility] [place] Penicill DA Active U 2010-0 [facility] ins 2-18 [place] 00:00: e 00 [facility] [place] Beef FA Active U 2010-0 [facility] Containi 2-18 [place] ng 00:00: e Products 00 [facility] Center codeine DA Active U 2010-0 [facility] 2-18 [place] 00:00: e 00 [facility] mesalami DA Active U 2010-0 [facility] ne 2-18 [place] 00:00: e 00 [facility] [place] diethylt DA Active U 2010-0 [facility] oluamide 2-18 [place] 00:00: e 00 [facility] tetanus DA Active U 2010-0 [facility] immune 2-18 [place] globulin 00:00: e 00 [facility] [place] celery FA Active SV 2010-0 [facility] 2-18 [facility] 00:00: e 00 [facility] BLACK DA Active U 2010- [facility] PEPPER 2-18 [facility] 00:00: e 00 [facility] PAINT DA Active U 2009- [facility] 3-30 [facility] 00:00: e 00 [facility] TREES DA Active U 2009- [facility] 3-30 [facility] 00:00: e 00 [facility] PEAS DA Active U 2008-0 [facility] 2-05 [facility] 00:00: e 00 [facility] Medications Ordered Filled Start Stop Current Ordering Indication Dosage Frequency Signature Comments Components Source Medication Medication Date Date Medication? Clinician (SIG) Name Name Celecoxib Celecoxib Yes [address] [facility] [facility] (Celebrex*) (Celebrex*) L ukes - 100 Mg 100 Mg Patient Capsule Capsule [facility] Hydrocodone Hydrocodone Yes [address] [facility] Bit/Acetami Bit/Acetami Day as [facility] - nophen nophen needed for Patie nt ([place] [facility] 7.5-325 7.5-325 Medical Tablet) 1 Tablet) 1 Cente r Each Tablet Each Tablet Levofloxaci Levofloxaci Yes [address] [facility] [address] n n [facility] - (Levaquin) (Levaquin) Pat ient 500 Mg 500 Mg s Tablet Tablet [facility] Levothyroxi Levothyroxi Yes [address] ne Sodium ne Sodium [facility] - 50 Mcg 50 Mcg Patient Tablet Tablet [facility] Nicotine Nicotine Yes [address] [facility] (Nicotine (Nicotine [facility] - Patch) 1 Patch) 1 Patient Each Each s Patch.dysq Patch.dysq [facility] Flonase , Flonase , 2015- No As Needed [facility] Nasal Nasal 09-26 [facility] - 00:00 Patient :00 [facility] Hydrocodone Hydrocodone 2014- No As Needed [facility] Bit/Acetami Bit/Acetami 09-26 [facility] - nophen nophen 00:00 Patient ([place] :00 s 5-325 5-325 Medical Tablet) 1 Tablet) 1 Cente r Each Each Tablet, Tablet, Tiotropium Tiotropium 2014- No Daily [facility] [place] Toivola 09-26 [facility] - (Spiriva) (Spiriva) 00:00 Jolynn ent 18 Mcg 18 Mcg :00 s Cap.w.dev, Cap.w.dev, Med ical Inhalation Inhalation C enter Vytorin , Vytorin , Daily [facility] Oral Oral 09-26 [facility] - 00:00 Patient :00 [facility] Albuterol Albuterol St. Sulfate Sulfate 07-18 [facility] - (Proair (Proair 00:00 Patient Hfa) 8.5 Gm Hfa) 8.5 Gm :00 s Hfa.aer.ad, Hfa.aer.ad, M [facility] Aspirin Aspirin Daily [facility] (Aspirin (Aspirin 07-18 [facility] - Chew) 81 Mg Chew) 81 Mg 00:00 Patient Chew, Chew, :00 [facility] Lorazepam Lorazepam .[address] [facility] 0.5 Mg 0.5 Mg 07-18kes - Tablet, 0.5 Tablet, 0.5 00:00 Patient Mg Oral Mg Oral :00 [facility] Omeprazole Omeprazole [facility] (Prilosec) (Prilosec) 07-18 Asia kes - 40 Mg 40 Mg 00:00 Patient Capsule.dr, Capsule., :00 [facility] Tramadol Tramadol [facility] Hcl/Acetami Hcl/Acetami 07-18 [facility] - nophen nophen 00:00 Patient (Tramadol (Tramadol :00 s Hcl-Apap Hcl-Apap [facility] 37.5-325 37.5-325 Center Tab) 1 Each Tab) 1 Each Tablet, Tablet, Hydrocodone Hydrocodone St. Bit (Lorcet Bit (Lorcet 08-01 - 10) 1 Tab 10) 1 Tab 00:00 Jolynn ent Tab, Tab, :00 [facility] Procedures Procedure Date / Time Performed Performing Clinician [facility] e X-ray of chest, two 2017-06-03 00:00:[address] [facility] Encounters Start End Encounter Admission Attending Care Care Encounter Source Date/Time Date/Time Type Type Clinicians Facility Department ID 2020-08-05 Outpatient MHSE MHSE [id number] 10:27:53 [facility] 2019-08-08 Inpatient E MHSE MED [id number] MH 15:09:00 [facility] 2020-07-25 2020-07-25 Outpatient MHSE MHSE [id number] 15:46[facility] 2020-07-09 2020-07-09 Outpatient MHBL MHBL 7506 MHBL 15:50:00 15:50:00 2020-07-05 2020-07-05 Outpatient MHSE MHSE [id number] MH 13:37:00 13:37:[address] [facility] 2020-02-07 2020-02-07 Outpatient MHSE MHSE [id number] MH 10:[facility] 2020-01-29 2020-01-29 Outpatient MHSE MHSE [id number] MH 14:20:00 14:20:00 [facility] 2019-10-10 2019-10-10 Emergency [facility] [id number] 15:26:14 20:35:00 Sonia Carty [id number] [place] [id number] [place] [id number] 2019-10-09 2019-10-09 Outpatient MHSE MHSE [id number] MH 10:31:00 10:31:[facility] 2019-08-30 2019-08-30 Outpatient MHSE MHSE [id number] MH 10:32:00 10:32:[facility] 2019-08-18 2019-08-18 Outpatient MHSE MHSE [id number] MH 13:58:00 13:58:[address] [facility] 2019-07-19 2019-07-19 Inpatient E MHSE MED 7500 MH 20:33:00 17:13:[facility] 2019-04-12 2019-04-12 Outpatient MHSE MHSE [id number] MH 12:56:00 12:56:[facility] 2019-04-07 2019-04-07 Outpatient MHSE MHSE 0003 MH 12:38:00 12:38:[address] [facility] 2017-05-27 2017-06-06 Discharged ER AMARILIS [facility] [id number] 22:22:00 15:44:[address] Results Test Description Test Time Test Comments Results Result Sour e Comments - CT L-SPINE W/O 2020-05-14 CONTRAST 22:09:00 [facility]Name: BILL CHAMBERLAIN : 1940 Sex: F Name: BILL CHAMBERLAIN [facility] : 1940 Age/S: 79 / F [address] [facility] Unit #: [id number] Loc: [place] [address] Phys: Jerman Kincaid MD Acct: [id number] Dis Date: Status: PRE ER PHONE #: [phone] Exam Date: 05/14/20202114 FAX #: [phone] Reason: Pain s/p Fall EXAMS: CPT CODE: [id number] CT L-SPINE W/O CONTRAST 96553 HISTORY: Pain s/p Fall TECHNIQUE: 2.5 mm [...] canal. PAGE 1 Signed Report (CONTINUED) Name: REGINETIOBILL Gaines MASSEY [facility] : 1940 Age/S: 79 / F [address] [facility] Unit #: [id number] Loc: [place] [address] Phys: Jerman Kincaid MD Acct: [id number] Dis Date: Status: PRE ER PHONE #: [phone] Exam Date: 05/14/20202114 FAX #: [phone] Reason: Pain s/p Fall EXAMS: CPT CODE: [id number] CT L-SPINE W/O CONTRAST 40715 <Continued> Disc bulging is seen in multiple levels of the lumbar spine resulting in foraminal narrowing as described above. Correlate clinically for radiculopathy. This can also be better assessed with MRI. Location: [facility] at 2209 Reported and signed by: Sg Klein MD CC: Jerman Kincaid MD; Lambert Canada MD Technologist:Kirsten CARD RT(R),RDMS,CT CTDI: DLP: Trnscb Date/Time: 05/14/2020 (2208) [email or web address] Orig Print D/T: S: 05/14/2020 (2212) PAGE 2 Signed Report - CT GUID VAL 2019-03-07 Name: KANDYEderBILL [facility] 09:51:00 MASSEY [facility] : 1940 Age/S: 78 / F [address] [facility] Unit #: [id number] Loc: [place] [address] Phys: João Zambrano MD Acct: [id number] Dis Date: 03/06/2019 Status: DIS IN PHONE #: [phone] Exam Date: 03/02/2019 1110 FAX #: [phone] Reason: BIOPDY EXAMS: CPT CODE: [id number] CT GUID NDL [facility] [address] EXAM: CT-guided lung biopsy; INFORMATION: Patient with COPD and past history of smoking. She presents with a noncalcified spiculated 12 mm nodule located in the posterior basilar portions of the right lower lobe. TECHNIQUE AND FINDINGS: CT dose reduction protocol; 2.5 mm axial scans. Informed consent was obtained and the patient was placed prone on the CT table. Localization scans were obtained, again demonstrating a small spiculated lower nodule in the right lower lobe, adjacent to small bullae. The patient's skin in the right inferior paraspinal chest region was prepped and draped in the usual sterile fashion. Xylocaine was administered and a short 16-gauge guiding cannula was then inserted into the soft tissues of the right back region. Additional localization scans were obtained. In coaxial fashion to passes were made with a 20-gauge core biopsy needle and a single pass was made with a 20-gauge Chiba needle. Tissue material was [...] as reported separately. Location code: [facility] at 0951 Reported and signed by: João Zambrano M.D. PAGE 1 Signed Report (CONTINUED) Name: BILL CHAMBERLAIN [facility] : 1940 Age/S: 78 / F [address] [facility] Unit #: [id number] Loc: [place] [address] Phys: João Zambrano MD Acct: [id number] Dis Date: 03/06/2019 Status: DIS IN PHONE #: [phone] Exam Date: 03/02/2019 1110 FAX #: [phone] Reason: BIOPDY EXAMS: CPT CODE: [id number] CT GUID NDL [facility] [address] <Continued> CC: Lambert Canada MD; João Zambrano MD Technologist:Ayleen James,RT(R),CT CTDI: DLP: Trnscb Date/Time: 03/07/2019 (0951) [email or web address] Orig Print D/T: S: 03/07/2019 (0955) PAGE 2 Signed Report - SP PERC PLEUR 2019-03-07 Name: BILL CHAMBERLAIN W/IMAG 09:30:00 [facility] : 1940 Age/S: 78 / F [address] [facility] Unit #: [id number] Loc: [place] [address] Phys: João Zambrano MD Acct: [id number] Dis Date: [id number] Status: DIS IN PHONE #: [phone] Exam Date: 03/02/2019 1150 FAX #: [phone] Reason: EXAMS: CPT CODE: [id number] SP PERC PLEUR MIRLANDE W/IMAG 09747 Fluoro Time: DAP (Gy m2): Air Kerma [...] monitored by a trained registered nurse. Physician kkus-iz-jhqo sedation time was 8 minutes. Informed consent [...] fashion. Xylocaine was administered and an 8 Niuean pigtail catheter was inserted into the right [...] CT-guided lung biopsy. Location code: [facility] at 0930 Reported and signed by: João Zambrano M.D. PAGE 1 Signed Report (CONTINUED) Name: BILL CHAMBERLAIN [facility] : 1940 Age/S: 78 / F [address] [facility] Unit #: [id number] Loc: [place] [address] Phys: João Zambrano MD Acct: [id number] Dis Date: [id number] Status: DIS IN PHONE #: [phone] Exam Date: 03/02/2019 1150 FAX #: [phone] Reason: EXAMS: CPT CODE: [id number] SP PERC PLEUR DRN W/IMAG 81177 Fluoro Time: DAP (Gy m2): Air Kerma (mGy): <Continued> CC: Lambert Canada MD; João Zambrano MD Technologist: Luther Thompson RT(R) Trncob Date/Time: 03/07/2019 (929) t.GRW Orig Print D/T: S: 03/07/2019 (932) PAGE 2 Signed Report - CT GUID NDL 2019-03-07 Name: BILL CHAMBERLAIN [facility] 09:30:00 [place] [facility] : 1940 Age/S: 78 / F [address] Unit #: [id number] Loc: [place] [address] Phys: João Zambrano MD Acct: [id number] Dis Date: 03/06/2019 Status: DIS IN PHONE #: [phone] Exam Date: 03/02/2019 1147 FAX #: [phone] Reason: CHEST TUBE [facility] EXAMS: CPT CODE: [id number] CT GUID NDL [facility] [address] EXAM: CT-guided insertion of a chest tube, [...] monitored by a trained registered nurse. Physician ncju-pl-ucqy sedation time was 8 minutes. Informed consent [...] fashion. Xylocaine was administered and an 8 Niuean pigtail catheter was inserted into the right [...] CT-guided lung biopsy. Location code: [facility] at 0930 Reported and signed by: João Zambrano M.D. PAGE 1 Signed Report (CONTINUED) Name: BILL CHAMBERLAIN [facility] : 1940 Age/S: 78 / F [address] Unit #: [id number] Loc: [place] [address] Phys: João Zambrano MD Acct: [id number] Dis Date: 03/06/2019 Status: DIS IN PHONE #: [phone] Exam Date: 03/02/2019 1147 FAX #: [phone] Reason: CHEST TUBE [facility] EXAMS: CPT CODE: [id number] CT GUID NDL [facility] [address] <Continued> CC: Lambert Canada MD; João Zambrano MD Technologist:Ayleen James,RT(R),CT CTDI: DLP: Trnscb Date/Time: 03/07/2019 (929) [email or web address] Orig Print D/T: S: 03/07/2019 (32) PAGE 2 Signed Report LUNG,BIOPSY 2019-03-06 18:18:00 ----RUN DATE: 03/06/19 [facility] PAGE 1 RUN TIME: 8 Specimen Inquiry RUN USER: INTERFACE ----PATIENT: BILL CHAMBERLAIN LOC: [facility] U #: [id number] AGE/SX: 78/F ROOM: [facility] RE03/04/19REG DR: Aaron Jeronimo MD : [birth year] BED: A DIS: 03/06/19 STATUS: DIS IN TLOC: ---- SPEC #: [id number] RECD: 03/02/19 STATUS: YUDI MEDINA #: [id number] MARLI: 03/02/19- SUBM DR: João Zambrano MD ENTERED: 03/02/19 SP TYPE: LUNG BX OTHR DR: Lambert Canada MD ORDERED: GROSS COPIES TO: Lambert Canada MD [address] [place], [place] [id number] João Zambrano MD [address] [place], [place] [id number] PROCEDURES: GROSS (03/06/19-1536) TISSUES: LUNG, NOS - [...] adenocarcinoma. Paraffin embedded tissue was submitted to [employer] for confirmatory immunoperoxidase stains. The slides are reviewed at [facility]. The controls stain appropriately. The malignant cells are shown to be strongly and diffusely positive for CK7, Napsin A and TTF-1. This immunoperoxidase staining pattern supports the diagnosis of adenocarcinoma of pulmonary origin. Clinical correlation is necessary. CONTINUED ON NEXT PAGE ----RUN DATE: 03/06/19 [place] [facility] PAGE 2 RUN TIME: 1817 Specimen Inquiry RUN USER: INTERFACE ----SPEC #: [id number] PATIENT: BILL CHAMBERLAIN #[id number] (Continued) FINAL DIAGNOSIS Lung, right lower lobe nodule, biopsy with touch prep: ADENOCARCINOMA COMPATIBLE WITH PULMONARY PRIMARY, see comment RRB/sm D 35005, 28356, 35773c2, 24301f4 MACROSCOPIC The specimen is received in formalin, labeled with the patient's name, and identified as "right lower lobe lung nodule". It consists of minute portions of dawson soft tissue ranging from less than 0.1 to 0.3 cm. It is entirely submitted in a single cassette. A touchprep slide is also received for processing. GROSS PERFORMED AT [facility] [address] [place] [address] [phone] MICROSCOPIC All of the stains, including any controls performed, stain appropriately. MICROSCOPIC PERFORMED AT [facility] [address] [place] [address] [phone])[phone] PERFORMING SITE Diagnosis performed at: [facility] [address] [place] [address] Signed SIGNATURE ON FILE Travon Hu MD 03/06/19 1818 ---- END OF REPORT - XR CHEST 2 V 2019-03-05 FAX: [place] 15:06:00 Lambert Canada MD [phone] [place]: St: [facility] FAX: Aaron Jeronimo [phone] FAX: João Trinidad [phone] Name: BILL CHAMBERLAIN [facility] : 1940 Age/S: 78/F [address] [facility] Unit #: [id number] Loc: V.[address] [place] [address] Phys: Lambert Canada MD Acct: [id number] Dis Date: Status: ADM IN PHONE #: [phone] Exam Date: 03/05/2019 1445 FAX #: [phone] Reason: COPD prior pneumothorax EXAMS: CPT CODE: [id number] XR CHEST 2 V 09845 HISTORY: COPD. COMPARISON: Previous day. Location: TH. AP and lateral view of the chest: No acute infiltrates, effusion or congestion. COPD with upper lobe predominance. Lung scarring. Previously noted right apical pneumothorax is no longer visible. Cardiomegaly. 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 IMPRESSION: Previously noted pneumothorax in the right apex is not clearly visible. The lungs are clear. COPD and scarring. at 1506 Reported and signed by: Manuel Hu M.D. CC: Lambert Canada MD; Aaron Jeronimo MD; João Zambrano MD Technologist: ROSANNA HU RT(R) Trnscrd Date/Time/By: 03/05/2019 (9041) : By: [email or web address] Orig Print D/T: S: 03/05/2019 (9684) PAGE 1 Signed Report BASIC METABOLIC PANEL 2019-03-05 04:57:00 Test Item Value Reference Range Interpretation Comme nts SODIUM (test code = NA) 138 mmol/L 136-145 N POTASSIUM (test code = K) 4.6 mmol/L 3.5-5.1 N CHLORIDE (test code = CL) 106.0 mmol/L 98-107 N CARBON DIOXIDE (test code = 27.0 mmol/L 21-32 N CO2) ANION GAP (test code = GAP) 9.6 10-20 L GLUCOSE (test code = GLU) 120 mg/dL 74-106 H BLOOD UREA NITROGEN (test code 17 mg/dL 7-18 N = BUN) GLOMERULAR FILTRATION RATE > 60 mL/min >=60 E stimated GFR by using (test code = GFR) Modified M DRD formula.Chronic kidney disease is defined as either kidney d amageor GFR <60 mL/min/1.73 m2 for >3 months. CREATININE (test code = CREAT) 0.70 mg/dL 0.55-1.02 N Note change in reference range due to ch nicole in reagent. BUN/CREATININE RATIO (test code 25.4 10-20 H = BUN/CREA) CALCIUM (test code = CA) 8.9 mg/dL 8.5-10.1 N PT REFUSED NOTIFIED KARRI JOE ([id number]) V.LAB. 303976UOXED METABOLIC [id number] 04:47:00 Test Item Value Reference Range Interpretation [...] mg/dL 8.5-10.1 PT REFUSED NOTIFIED KARRI JOE ([id number]) V.LAB. 03/05/405115MKJ W/AUTO DIFF 2019-03-05 04:44:00 Test Item Value [...] N NRBC#) PT REFUSED NOTIFIED KARRI JOE ([id number]) V.LAB.KP 03/05/560997ZFF W/AUTO DIFF 2019-03-04 10:50:00 Test Item Value [...] 0.0-0.1 N NRBC#) - XR CHEST 1 [id number] 08:11:00 FAX: Lambert Farrell MD [phone] [place]: B St: ADM FAX: Moises Jeronimo [phone] FAX: João Trinidad [phone] Name: BILL CHAMBERLAIN [facility] : 1940 Age/S: 78/F [address] Unit #: [id number] Loc: V.3026 [place] [address] Phys: Aaron Jeronimo MD Acct: [id number] Dis Date: Status: ADM IN PHONE #: [phone] Exam Date: 03/04/2019729 FAX #: [phone] Reason: pneumothorax EXAMS: CPT CODE: [id number] XR CHEST 1 V 78121 REASON FOR EXAM: pneumothorax Exam Order Date: 03/04/2019 6:00 AM Ordering M.D.: Aaron Jeronimo MD PROCEDURE:- XR CHEST 1 V COMPARISON: Frontal chest [...] findings are also unchanged. Location: [facility] at 0811 Reported and signed by: Sg Klein MD CC: Lambert Canada MD; Aaron Jeronimo MD; João Zambrano MD Technologist: ROSANNA HU RT(R) Trnscrd Date/Time/By: 03/04/2019 (810) : By: [email or web address] Orig Print D/T: S: 03/04/2019 (14) PAGE 1 Signed Report- XR CHEST 1 [id number] 17:58:00 [place]: B St: ADM Name: BILL CHAMBERLAIN [facility] : 1940 Age/S: 78/F [address] Unit#: [id number] Loc: V.3026 [place] [address] Phys: João Zambrano MD Acct: [id number] Dis Date: Status: ADM IN PHONE #: [phone] Exam Date: 03/03/2019 1633 FAX #: [phone] Reason: POST TUBE CHEST REMOVAL EXAMS: CPT CODE: [id number] XR CHEST 1 V 23496 HISTORY: Chest tube removal. COMPARISON: Same day. Location: [facility]. No acute infiltrates, effusion or congestion is noted. Trace less than 2% apical pneumothorax on the right is unchanged. Lung scarring. Cardiomegaly. Kyphoplasty change in the mid dorsal spine. IMPRESSION: No acute infiltrates, effusion or congestion. Trace less than 2% right apical pneumothorax is unchanged from previous exam. at 2160 Reported and signed by: Manuel Hu M.D. CC: Technologist: RT LISSETH(Kristina)Trnscrd Date/Time/By: 03/03/2019 (1757) : By: [email or web address] Orig Print D/T: S: 03/03/2019 (0252) PAGE 1 Signed Report- XR CHEST 1 [id number] 14:36:00 FAX: Lambert Farrell MD [phone] [place]: St: ADM FAX: Moises Jeronimo [phone] FAX: João Trinidad [phone] Name: BULMARORHIANNONBILLROBERTO MASSEY [facility] : 1940 Age/S: 78/F [address] Unit #: [id number] Loc: V.3026 [place] [address] Phys: João Zambrano MD Acct: [id number] Dis Date: Status: ADM IN PHONE #: [phone] Exam Date: 03/03/2019 1425 FAX #: [phone] Reason: POST CHEST TUBE EXAMS: CPT CODE: [id number] XR CHEST 1 V 93894 HISTORY: Post chest tube placement. COMPARISON: Same day. Location: [facility]. Right chest tube is no longer seen. Trace 2% apical pneumothorax is still visible. Lungs are clear. Lung nodule in the right lower lobe isnot clearly visible. Kyphoplasty change in the dorsal spine. Cardiac silhouette is mildly enlarged IMPRESSION: Right chest tube is no longer seen. Trace 2% left apical pneumothorax. at 1431 Reported and signed by: Manuel Hu M.D. CC: Lambert Canada MD; Aaron Jeronimo MD; João Zambrano MD Technologist: RT LISSETH(Kristina) TrnscrdDate/Time/By: 03/03/2019 (6162) : By: [email or web address] Orig Print D/T: S: 03/03/2019 (6389) PAGE 1 Signed Report- XR CHEST 1 [id number] 07:59:00 FAX: Lambert Farrell MD [phone] [place]: St: ADM FAX: Moises Jeronimo [phone] FAX: João Trinidad [phone] Name: ANEUDYCHRISE,BLIL MASSEY [facility] : 1940 Age/S: 78/F [address] Unit #: [id number] Loc: V.3026 [place] [address] Phys: Aaron Jeronimo MD Acct: [id number] Dis Date: Status: ADM IN PHONE #: [phone] Exam Date: 03/03/2019 07 FAX #: [phone] Reason: pneumothorax EXAMS: CPT CODE: [id number] XR CHEST 1 V 83204 CLINICAL HISTORY: pneumothorax TECHNIQUE: AP chest x-ray [...] 03/03/2019 (0802) PAGE 1 Signed ReportBASIC METABOLIC [id number] 03:01:00 Test Item Value Reference Range Interpretation [...] 9.3 mg/dL 8.5-10.1 N CA) BASIC METABOLIC [id number] 02:57:00 Test Item Value Reference Range Interpretation [...] code = CA) mg/dL 8.5-10.1 CBC W/AUTO [id number] 02:38:00 Test Item Value Reference Range Interpretation [...] (test code NO = MDIFF) CBC W/AUTO [id number] 02:25:00 Test Item Value Reference Range Interpretation [...] BA#) K/mm3 0.0-0.2 - XR CHEST 1 [id number] 15:56:00 FAX: Lambert Farrell MD [phone] [place]: St: ADM FAX: João Trinidad [phone] Name: BILL CHAMBERLAIN [facility] : 1940 Age/S: 78/F [address] Unit #: [id number] Loc: V.3026 [place] [address] Phys: João Zambrano MD Acct: [id number] Dis Date: Status: ADM IN PHONE #: [phone] Exam Date: 03/02/2019 1527 FAX #: [phone] Reason: PTX post R lung bx; st.p. R chest tube; EXAMS: CPT CODE: [id number] XR CHEST 1 V 79690 HISTORY: Right biopsy and right chest tube. COMPARISON: March 02, 2019. Location: [facility]. Single view chest: Trace less than 5% right apical pneumothorax is noted again. Right chest tube noted again. Lung scarring with small left effusion. COPD. Fibrocalcific residuals in the upper lobes. Cardiomegaly. Kyphoplasty change in the mid dorsal spine. IMPRESSION: Trace less than 5% right apical pneumothorax despite presence of chest tube demonstrating no change. at 8024 Reported and signed by: Manuel Hu M.D. CC: Lambert Canada MD; João Zambrano MD Technologist: Spencer Castro RT(R) Trnscrd Date/Time/By: 03/02/2019 (4366) : By: [email or web address] Orig Print D/T: S: 03/02/2019 (106) PAGE 1 Signed Report- XR CHEST 1 [id number] 12:24:00 FAX: Lambert Farrell MD [phone] [place]: St: PRE FAX: João Trinidad [phone] Name: BILL CHAMBERLAIN [facility] : 1940 Age/S: 78/F José Schulte[address] Garcia Unit #: [id number] Loc: [place] [address] Phys: João Zambrano MD Acct: Tigist [id number] Dis Date: Status: PRE [facility] PHONE #: [phone] Exam Date: 03/02/2019 1203 FAX #: [phone] Reason: PNEUMOTHORAX/POST CHEST TUBE PLACEMENT EXAMS: CPT CODE: [id number] XR CHEST 1 V 93115 REASON FOR EXAM: PNEUMOTHORAX/POST CHEST TUBE PLACEMENT Exam Order Date: 03/02/2019 11:49 AM Ordering Laurita: João Zambrano MD PROCEDURE: - XR CHEST 1 V COMPARISON: CT chest and chest radiograph earlier today FINDINGS/ IMPRESSION: Interval placement of right pleural pigtail catheter with marked decrease in size of the right-sided pneumothorax. Remaining findings are unchanged. Location: [facility] at 1224 Reported and signed by: Sg Klein MD CC: Lambert Canada MD; João Zambrano MD Technologist: BRANNON FOX RT(R) Trnscrd Date/Time/By: 03/02/2019 (5863) : By: [email or web address] Orig Print D/T: S: 03/02/2019 (1433) PAGE 1 Signed Report- XR CHEST 1 [id number] 12:03:00 FAX: Lambert Farrell MD [phone] [place]: St: PRE FAX: João Trinidad [phone] Name: BILL CHAMBERLAIN [facility] : 1940 Age/S: 78/F [address] Unit #: [id number] Loc: [place] [address] Phys: João Zambrano MD Acct: Tigist [id number] Dis Date: Status: PRE SDC PHONE #: [phone] Exam Date: 03/02/2019 1130 FAX #: [phone] Reason: POST THORA EXAMS: CPT CODE: [id number] XR CHEST 1 V 39170 REASON FOR EXAM: POST THORA Exam Order [...] right-sided pneumothorax following thoracentesis. Location: [facility] at 1203 Reported and signed by: Sg Klein MD CC: Lambert Canada MD; João Zambrano MD Technologist: RT TIMOTEO(R) Trnscrd Date/Time/By: 03/02/2019 (2595) : By: [email or web address] Orig Print D/T: S: 03/02/2019 (4851) PAGE 1 Signed ReportPROTHROMBIN TIME 2019-03-01 15:04:00 [...] OFBLUE TOP TUBE. V.LAB. 02/28/19 1830THROMBOPLASTIN TIME [id number] 15:04:00 Test Item Value Reference Range Interpretation [...] (test code NO = MDIFF) CBC W/AUTO [id number] 17:01:00 Test Item Value Reference Range Interpretation [...] = BA#) K/mm3 0.0-0.2 - PET/CT [facility]84 14:59:00 FAX: Lambert Farrlel MD [phone] [place]: St: DEP Name: BILL CHAMBERLAIN [facility] : 1940 Age/S: 78/F [address] [facility] Unit#: [id number] Loc: [place] [address] Phys: Lambert Canada MD Acct: [id number] Dis Date: Status: DEP CL I PHONE #: [phone] Exam Date: 02/13/2019 1205 FAX #: [phone] Reason: RLL NODULE EXAMS: CPT CODE: [id number] PET/CT TUMOR [facility] [address] HISTORY: Right lower lobe lung nodule. COMPARISON: CT chest from May 15, 2010. Location: [facility]. PET/CT SCAN: 10.5 mCi of FDG [...] 5.1 suspicious for malignancy. No metastases. at 6704 Reported and signed by: Manuel Hu M.D. CC: Lambert Canada MD Technologist: Annel Cowart RT(N) Trnscrd Date/Time/By: 02/26/2019 (1459): By: [email or web address] Orig Print D/T: S: 02/26/2019 (7641) PAGE 1 Signed Report CHEST 2 [id number] 11:42:00 [place] [address] Patient Name: BILL CHAMBERLAIN MR #: [id number] : 1940 Age/Sex: 78/F Req #: [id number] Adm Physician: Ordered by: RACHEL OLMOS MD Report #: [id number] Location: [facility] Room/Bed: Procedure: [id number] DX/CHEST 2 VIEWS Exam Date: 11/23/18 Exam [...] TROPI) <0.015 ng/mL 0-0.045 N COMMENTS TO RECORDAK OPERATOR: COLLECT 3 HOURS AFTER PREVIOUS [id number] 22:26:00 Test Item Value Reference Range Interpretation Comments TROPONIN-I (test code = TROPI) <0.015 ng/mL 0-0.045 N COMMENTS TO RECORDAK OPERATOR: COLLECT 3 HOURS AFTER PREVIOUS SAMPLEB-TYPE NATRIURETIC [id number] 13:40:00 Test Item Value Reference Range Interpretation Comments B-TYPE NATRIURETIC PEPTIDE 45.85 pgram/mL 0-100 N (test code = BNP) BASIC METABOLIC [id number] 13:23:00 Test Item Value Reference Range Interpretation [...] 9.5 mg/dL 8.5-10.1 N CA) HEPATIC FUNCTION [id number] 13:23:00 Test Item Value Reference Range Interpretation [...] range due ALKP) to change in reagent. [id number] 13:23:00 Test Item Value Reference Range Interpretation Comments LIPASE (test code = LIP) 358 U/L 73.0-393.0 N [id number] 13:23:00 Test Item Value Reference Range Interpretation Comments TROPONIN-I (test code = TROPI) <0.015 ng/mL 0-0.045 N - XR CHEST 1 [id number] 13:15:00 FAX: Orestes Washington [place]: St: REG Name: BILL CHAMBERLAIN [facility] : 1940 Age/S: 78/F [address] [facility] Unit#: [id number] Loc: [place] [address] Phys: Orestes Washington MD Acct: [id number] Dis Date: Status: REG ER PHONE #: [phone] Exam Date: 11/21/2018 1235 FAX #: [phone] Reason: CHEST PAIN EXAMS: CPT CODE: [id number] XR CHEST 1 V 31422 REASON FOR EXAM: CHEST PAIN EXAM ORDER DATE: 11/21/2018 12:05 PM Ordering M.D.: Orestes Washington MD PROCEDURE:- XR CHEST 1 [...] signed by: Robel Oliveros M.D. CC: Orestes Washington MD Technologist: Roxanne Jane(Kristina) Trnscrd Date/Time/By: 11/21/2018 (4964) : By: JovanaL Orig Print D/T: S: 11/21/2018 (8007) PAGE 1 Signed ReportPROTHROMBIN [id number] 13:13:00 Test Item Value Reference Range Interpretation [...] (2.5-3.5) IS PATIENT ON ANTICOAGULANTS? NTHROMBOPLASTIN TIME [id number] 13:13:00 Test Item Value Reference Range Interpretation Comments THROMBOPLASTIN TIME PARTIAL 29.2 seconds 25.0-36.5 N (test code = PTT) IS PATIENT ON ANTICOAGULANTS? NBASIC METABOLIC [id number] 13:12:00 Test Item Value Reference Range Interpretation [...] code = CA) mg/dL 8.5-10.1 HEPATIC FUNCTION [id number] 13:12:00 Test Item Value Reference Range Interpretation [...] TOTAL (test IUnit/L 45-117 code = ALKP) [id number] 13:12:00 Test Item Value Reference Range Interpretation Comments LIPASE (test code = LIP) U/L 73.0-393.0 [id number] 13:12:00 Test Item Value Reference Range Interpretation Comments TROPONIN-I (test code = TROPI) ng/mL 0-0.045 CBC W/O [id number] 12:57:00 Test Item Value Reference Range Interpretation [...] fL 6.7-11.0 N = MPV) CHEST 2 [id number] 15:36:00 [facility] [address] [address] Patient Name: BILL CHAMBERLAIN MR #: [id number] : 1940 Age/Sex: 77/F Req #: [id number] Adm Physician: Ordered by: RACHEL OLMOS MD Report #: [id number] Location: [facility] Room/Bed: Procedure: [id number] DX/CHEST 2 VIEWS Exam Date: 06/27/18 Exam [...] 3:40 PM Dictated By: SONAL HDEZ MD Transcribed By: KERI on COPY TO: RACHEL OLMOS MD Differential Total Cells [id number] 08:59:00 Test Item Value Reference Range Interpretation Comments Differential Total Cells Counted (test 100 code = Differential Total Cells Counted) [facility] % (Manual)2017-06-05 08:59:00 Test Item Value Reference Range Interpretation Comments Neutrophils % (Manual) (test code = 81 40-74 H 32296-6) [facility] CenterBand Neutrophils %2017-06-05 08:59:00 Test Item Value Reference Range Interpretation Comments Band Neutrophils % (test code = 764-1) 2 [facility] CenterLymphocytes % (Manual)2017-06-05 08:59:00 Test Item Value Reference Range Interpretation Comments Lymphocytes % (Manual) (test code = 9 19-48 L 737-7) [facility]Monocytes % (Manual)2017-06-05 08:59:00 Test Item Value Reference Range Interpretation Comments Monocytes % (Manual) (test code = 8 3.4-9.0 744-3) [facility] CenterPlatelet [id number] 08:59:00 Test Item Value Reference Range Interpretation Comments Platelet Estimate (test code = ADEQUATE 44820-7) [facility] CenterPlatelet Morphology [id number] 08:59:00 Test Item Value Reference Range Interpretation Comments Platelet Morphology Comment (test code NORMAL = 04001-4) [facility] CenterRed Cell Morphology Gekbqbf6040-00-67 08:59:00 Test Item Value Reference Range Interpretation Comments Red Cell Morphology Comment (test code NORMAL = 6742-1) [facility] Aadzg5626-23-72 07:32:00 Test Item Value Reference Range Interpretation Comments Sodium Level (test code = 2951-2) 139 136-145 [facility] CenterPotassium [id number] 07:32:00 Test Item Value Reference Range Interpretation Comments Potassium Level (test code = 2823-3) 4.5 3.5-5.1 [facility] CenterChloride [id number] 07:32:00 Test Item Value Reference Range Interpretation Comments Chloride Level (test code = 2075-0) 98 98-107 [facility] CenterCarbon Dioxide Ijlgh0698-72-63 07:32:00 Test Item Value Reference Range Interpretation Comments Carbon Dioxide Level (test code = 37 22-29 H 2027-9) [facility] CenterAnion [id number] 07:32:00 Test Item Value Reference Range Interpretation Comments Anion Gap (test code = 45649-7) 8.5 8-16 [facility] CenterBlood Urea Lvuvbzsm5140-33-47 07:32:00 Test Item Value Reference Range Interpretation Comments Blood Urea Nitrogen (test code = 21 7-26 3094-0) [facility] CenterCreatinine2018-03-10 07:32:00 Test Item Value Reference Range Interpretation Comments Creatinine (test code = 2160-0) 0.56 0.57-1.11 L [facility] CenterBUN/Creatinine Orclr3939-62-12 07:32:00 Test Item Value Reference Range Interpretation Comments BUN/Creatinine Ratio (test code = 38 6-25 H 3097-3) [facility] CenterEstimat Glomerular Filtration Rate 2017-06-05 07:32:00 Test Item Value Reference Range Interpretation Comments Estimat Glomerular Filtration Rate 60- >60 (test code = 92843-1) Ranges were taken from the National Kidney Disease Education Program and the National Kidney Foundation literature.Reference ranges:60 or greater: Uzfyil67- 59 (for 3 consecutive months): Chronic kidneydisease 15 or less: Kidney failure [facility] CenterGlucose Vxira1470-38-38 07:32:00 Test Item Value Reference Range Interpretation Comments Glucose Level (test code = CGV3722) 76 74-118 [facility] CenterCalcium Njvbs5498-52-88 07:32:00 Test Item Value Reference Range Interpretation Comments Calcium Level (test code = 66953-0) 8.3 8.4-10.2 L [facility] CenterWhite Blood Oeadl6982-48-59 07:10:00 Test Item Value Reference Range Interpretation Comments White Blood Count (test code = 6690-2) 9.47 4.8-10.8 [facility] CenterRed Blood Jikyt7925-48-45 07:10:00 Test Item Value Reference Range Interpretation Comments Red Blood Count (test code = 789-8) 3.58 3.6-5.1 L [facility] CenterHemoglobin2018-03-10 07:10:00 Test Item Value Reference Range Interpretation Comments Hemoglobin (test code = 86898-7) 10.9 12.0-16.0 L [facility] CenterHematocrit2018-03-10 07:10:00 Test Item Value Reference Range Interpretation Comments Hematocrit (test code = 4544-3) 33.8 34.2-44.1 L [facility] CenterMean Corpuscular Gvasid8273-34-70 07:10:00 Test Item Value Reference Range Interpretation Comments Mean Corpuscular Volume (test code = 94.4 81-99 787-2) [facility] CenterMean Corpuscular Duhhifjuqi4501-49-21 07:10:00 Test Item Value Reference Range Interpretation Comments Mean Corpuscular Hemoglobin (test code 30.4 28-32 = 785-6) [facility] Corpuscular Hemoglobin Concent 2017-06-05 07:10:00 Test Item Value Reference Range Interpretation Comments Mean Corpuscular Hemoglobin Concent 32.2 31-35 (test code = 786-4) [facility] CenterRed Cell Distribution Hfzxo3110-47-18 07:10:00 Test Item Value Reference Range Interpretation Comments Red Cell Distribution Width (test code 14.6 11.7-14.4 H = 95006-4) [facility] CenterPlatelet Eswat2583-55-92 07:10:00 Test Item Value Reference Range Interpretation Comments Platelet Count (test code = 777-3) 337 140-360 [facility] CenterNeutrophils (%) (Auto)2017-06-05 07:10:00 Test Item Value Reference Range Interpretation Comments Neutrophils (%) (Auto) (test code = 70.6 38.7-80.0 24771-6) [facility] CenterLymphocytes (%) (Auto)2017-06-05 07:10:00 Test Item Value Reference Range Interpretation Comments Lymphocytes (%) (Auto) (test code = 13.8 18.0-39.1 L 736-9) [facility] CenterMonocytes (%) (Auto)2017-06-05 07:10:00 Test Item Value Reference Range Interpretation Comments Monocytes (%) (Auto) (test code = 7.2 4.4-11.3 5905-5) [facility] CenterEosinophils (%) (Auto)2017-06-05 07:10:00 Test Item Value Reference Range Interpretation Comments Eosinophils (%) (Auto) (test code = 0.8 0.0-6.0 713-8) [facility] CenterBasophils (%) (Auto)2017-06-05 07:10:00 Test Item Value Reference Range Interpretation Comments Basophils (%) (Auto) (test code = 0.6 0.0-1.0 706-2) [facility] CenterIM GRANULOCYTES %2017-06-05 07:10:00 Test Item Value Reference Range Interpretation Comments IM GRANULOCYTES % (test code = IM 7.0 0.0-1.0 H GRANULOCYTES %) [facility] CenterNeutrophils # (Auto)2017-06-05 07:10:00 Test Item Value Reference Range Interpretation Comments Neutrophils # (Auto) (test code = 6.7 2.1-6.9 751-8) [facility] CenterLymphocytes # (Auto)2017-06-05 07:10:00 Test Item Value Reference Range Interpretation Comments Lymphocytes # (Auto) (test code = 1.3 1.0-3.2 74021-6) [facility] CenterMonocytes # (Auto)2017-06-05 07:10:00 Test Item Value Reference Range Interpretation Comments Monocytes # (Auto) (test code = 742-7) 0.7 0.2-0.8 [facility] CenterEosinophils # (Auto)2017-06-05 07:10:00 Test Item Value Reference Range Interpretation Comments Eosinophils # (Auto) (test code = 0.1 0.0-0.4 711-2) [facility] CenterBasophils # (Auto)2017-06-05 07:10:00 Test Item Value Reference Range Interpretation Comments Basophils # (Auto) (test code = 704-7) 0.1 0.0-0.1 [facility] CenterAbsolute Immature Granulocyte (auto 2017-06-05 07:10:00 Test Item Value Reference Range Interpretation Comments Absolute Immature Granulocyte (auto 0.66 0-0.1 H (test code = Absolute Immature Granulocyte (auto) [facility] CenterVancomycin Level Welxpd5785-05-78 11:10:00 Test Item Value Reference Range Interpretation Comments Vancomycin Level Trough (test code = 10.5 5.0-10.0 4092-3) Results called to DANIEL POWERS at 1109 on 06/04/17 by Janny Durán. RB [place].[facility] CenterMetamyelocytes %2017-06-03 08:24:00 Test Item Value Reference Range Interpretation Comments Metamyelocytes % (test code = 740-1) 2 0-0 H [facility] CenterMyelocytes %2017-06-03 08:24:00 Test Item Value Reference Range Interpretation Comments Myelocytes % (test code = 749-2) 1 0-0 H [facility] CenterReactive Sqqwsuaujbc9994-30-77 08:24:00 Test Item Value Reference Range Interpretation Comments Reactive Lymphocytes (test code = 2 70816-0) [facility] CenterBlast Cells %2017-06-03 08:24:00 Test Item Value Reference Range Interpretation Comments Blast Cells % (test code = 57805-0) 1 [facility] CenterHypochromasia2018-03-08 08:24:00 Test Item Value Reference Range Interpretation Comments Hypochromasia (test code = 728-6) SLIGHT [facility] CenterBlood Uzkklps9965-78-93 06:03:00 Test Item Value Reference Range Interpretation Comments Blood Culture (test NO GROWTH AFTER 5 code = 28070249) DAYS, FINAL REPORT [facility] CenterAnisocytosis2018-03-07 08:52:00 Test Item Value Reference Range Interpretation Comments Anisocytosis (test code = 702-1) SLIGHT [facility] CenterAlkaline Gcxsbjuzqzn2176-09-93 06:39:00 Test Item Value Reference Range Interpretation Comments Alkaline Phosphatase (test code = 53 40-150 6768-6) [facility] CenterTotal Kaitztzvt3667-14-63 06:39:00 Test Item Value Reference Range Interpretation Comments Total Bilirubin (test code = 1975-2) 0.3 0.2-1.2 [facility] CenterAspartate Amino Transf (AST/SGOT) 2017-06-01 06:39:00 Test Item Value Reference Range Interpretation Comments Aspartate Amino Transf (AST/SGOT) (test 8 5-34 code = Aspartate Amino Transf (AST/SGOT)) [facility] CenterAlanine Aminotransferase (ALT/SGPT) 2017-06-01 06:39:00 Test Item Value Reference Range Interpretation Comments Alanine Aminotransferase (ALT/SGPT) 10 0-55 (test code = 1742-6) [facility] Kcqpefi5523-20-61 06:39:00 Test Item Value Reference Range Interpretation Comments Total Protein (test code = 2885-2) 5.3 6.5-8.1 L [facility] CenterAlbumin2018-03-06 06:39:00 Test Item Value Reference Range Interpretation Comments Albumin (test code = 1751-7) 2.0 3.5-5.0 L [facility] CenterGlobulin2018-03-06 06:39:00 Test Item Value Reference Range Interpretation Comments Globulin (test code = 67531-0) 3.3 2.3-3.5 [facility] CenterAlbumin/Globulin Wsyuq4629-11-79 06:39:00 Test Item Value Reference Range Interpretation Comments Albumin/Globulin Ratio (test code = 0.6 0.8-2.0 L 1759-0) [facility] CenterPoikilocytosis2018-03-05 08:35:00 Test Item Value Reference Range Interpretation Comments Poikilocytosis (test code = 779-9) SLIGHT [facility] CenterMacrocytosis2018-03-02 11:03:00 Test Item Value Reference Range Interpretation Comments Macrocytosis (test code = 738-5) SLIGHT [facility] CenterLactic Acid Nkkhz1933-85-75 09:40:00 Test Item Value Reference Range Interpretation Comments Lactic Acid Level (test code = Lactic 14.2 4.5-19.8 Acid Level) [facility] CenterCHEST 2 VIEWS [facility] [address] [address] Patient Name: BILL CHAMBERLAIN MR #: [id number] : 1940 Age/Sex: 76/F Req #: [id number] Adm Physician: RACHEL OLMOS MD Ordered by: RACHEL OLMOS MD Report #:[id number] Location: MED/SURG Room/Bed: [facility] Procedure: [id number] DX/CHEST 2 VIEWS Exam Date: Exam Time: REPORT STATUS: Signed PROCEDURE: CHEST 2 VIEWS TECHNIQUE: PA and lateral chest INDICATION: Pneumonia COMPARISON: [facility], DX, CHEST SINGLE (PORTABLE), 05/31/2017, 6:25. [...] at 13:11 Dictated By: BECKY JARAMILLO MD 10 Transcribed By: SHELLIE on 06/03/17 131 COPY TO: RACHEL OLMOS [facility] SINGLE (PORTABLE) [place] [address] Patient Name: BILL CHAMBERLAIN MR #: [id number] : 1940 Age/Sex: 76/F Req #: [id number] Adm Physician: RACHEL OLMOS MD Ordered by: RACHEL OLMOS MD Report #:[id number] Location: [facility] Room/Bed: [place] [address] Procedure: [id number] DX/CHEST SINGLE (PORTABLE) Exam Date: Exam Time: [...] 6:46 AM Dictated By: NANCY JACKSON MD 5 Transcribed By: KERI on 05/31/17645 COPY TO: [facility] [place] [address] Patient Name: BILL CHAMBERLAIN MR #: [id number] : 1940 Age/Sex: 76/F Req #: [id number] Adm Physician: RACHEL OLMOS MD Ordered by: RACHEL OLMOS MD Report #:[id number] Location: [facility] Room/Bed: [place] [address] Procedure: [id number] DX/CHEST SINGLE (PORTABLE) Exam Date: 05/29/17 Exam [...]
[2020-09-24] MEDS ORDERED: ONDANSETRON 4 MG/2 ML VIAL ONE (14:18)
[2020-09-24] MEDS ORDERED: MEPERIDINE HCL 25 MG/ML SYR ONE ×2 (14:19→16:05)
--- NOTE | 2020-09-24 14:24 | RAD REPORT ---
EXAM DESCRIPTION: CTSpine Lumbar Wo Con09/24/2020 2:09 pm CLINICAL HISTORY: Back pain with vertebral body. Vertebral fracture COMPARISON: None TECHNIQUE: Computed axial tomography lumbar spine was obtained with coronal and sagittal reconstruct ion. All CT scans are performed using dose optimization technique as appropriate and may include automated exposure control or mA/KV adjustment according to patient size. FINDINGS: Marked compression fracture involves the L1 vertebral body. Retropulsion of bone results i n approximately 10% narrowing of the spinal canal. A moderate compression fractures involve the L2 and L3 vertebral bodies. Retropulsion bone L3 results in approximately 5% narrowing of the spinal canal. No dislocation No paraspinal hematoma seen. Marked atherosclerotic disease IMPRESSION: Compression fractures involving L1, L2 on L3. A fracture line is not visualized. Paraspi nal hematoma is not noted. These presumably are old. Patient continues to have symptoms to suggest an acute compression fracture then a nonemergent MRI would be recommended
--- NOTE | 2020-09-24 14:37 | RAD REPORT ---
EXAM DESCRIPTION: CTThoracic Spine W/o Cont09/24/2020 2:09 pm CLINICAL HISTORY: Back pain. Vertebral compression fracture. COMPARISON: None TECHNIQUE: Computed axial tomography of thoracic spine was obtained with coronal and sagittal recons truction. All CT scans are performed using dose optimization technique as appropriate and may include automated exposure control or mA/KV adjustment according to patient size. FINDINGS: Cement has been placed into compression fractures involving T7, T8, T11 and T12 vertebral bodies. The compression fractures are generally moderate in severity. No significant retropulsion bon e into the spinal canal. A moderate compression fracture involves the T9 vertebral body. It contains areas of sclerosis. It pr obably is subacute. Minimal compression involves the T6 and T10 vertebral bodies which appears chronic. Kyphosis is present. No dislocation Cortical regularity involves the sternum. IMPRESSION: Moderate compression fracture involves the T9 vertebral body estimated to be approximate ly 40%. It probably is subacute. Significant retropulsion of bone into the spinal canal is not noted. Further evaluation with nonemergent MRI may helpful if clinically indicated Cortical regularity involves the sternum probably secondary to patient motion artifact. Minimally dis placed fracture can also have this appearance and should be correlated clinically
[2020-09-24 14:52] LABS: Absolute Lymphocytes (CBC) 0.9 K/uL (0.7-4.9); Basophils % 0.5 % (0-1.3); Hematocrit 31.6 % (36.0-45.0); Lymphocytes % 12.5 % (15.3-44.8); MPV 8.2 fL (7.6-11.3); RBC Red Blood Cell Count 3.58 M/uL (3.86-4.86)
--- NOTE | 2020-09-24 15:19 | RAD REPORT ---
EXAM DESCRIPTION: Brittani Single View09/24/2020 2:17 pm CLINICAL HISTORY: Chest pain COMPARISON: none FINDINGS: The lungs appear clear of acute infiltrate. The heart is normal size IMPRESSION: No acute abnormalities displayed
--- NOTE | 2020-09-24 15:42 | ER ---
Nurse's Notes [facility] Name: Mary Morataya Age: 80 yrs Sex: Female : 1940 Arrival Date: 09/24/2020 Time: 13:44 Bed 2 Private MD: Diagnosis: Wedge compression fracture of unspecified thoracic vertebra-T9 Presentation: 09/24 13:44 Chief complaint: EMS states: Hx of compression fractures, reports sudden increase in hb back pain yesterday. Coronavirus screen: At this time, the client does not indicate any symptoms associated with coronavirus-19. Ebola Screen: No symptoms or risks identified at this time. Initial Sepsis Screen: Does the patient meet any 2 criteria? No. Patient's initial sepsis screen is negative. Does the patient have a suspected source of infection? No. Patient's initial sepsis screen is negative. Risk Assessment: Do you want to hurt yourself or someone else? Patient reports no desire to harm self or others. Onset of symptoms was September 23, 2020. 13:44 Method Of Arrival: EMS: [facility] 13:44 Acuity: TIMOTHY 3 hb Triage Assessment: 13:45 General: Appears in no apparent distress. uncomfortable, Behavior is calm, cooperative. hb Pain: Pain currently is 5 out of 10 on a pain scale. EENT: No signs and/or symptoms were reported regarding the EENT system. Neuro: Level of Consciousness is awake, alert, obeys commands, Oriented to person, place, time, situation. Cardiovascular: Patient's skin is warm and dry. Respiratory: Respiratory effort is even, mildly labored, at baseline per patient. GI: No signs and/or symptoms were reported involving the gastrointestinal system. : No signs and/or symptoms were reported regarding the genitourinary system. Derm: Skin is pink, warm \T\ dry. Musculoskeletal: Reports mid back pain. Historical: - Allergies: 13:45 PENICILLINS; hb 13:45 Tetanus Vaccines \T\ Toxoid; hb - Home Meds: 13:45 4L NC home O2 [Active]; hb - PMHx: 13:45 COPD; Pneumonia; hb - Immunization history:: Adult Immunizations up to date. - Social history:: Smoking status: Patient denies any tobacco usage or history of. - Family history:: not pertinent. - Hospitalizations: : No recent hospitalization is reported. Screenin:48 Abuse screen: Denies threats or abuse. Denies injuries from another. Nutritional hb screening: No deficits noted. Tuberculosis screening: No symptoms or risk factors identified. Fall Risk Total Armijo Fall Scale indicates High Risk Score (45 or more points). Fall prevention measures have been instituted. Side Rails Up X 2 Frequent Obs/Assessments Occuring As available patient and family educated on Fall Prevention Program and Strategies. Assessment: 13:47 General: see triage assessment . hb 15:00 Reassessment: Patient appears in no apparent distress at this time. Patient and/or hb family updated on plan of care and expected duration. Pain level reassessed. Patient is alert, oriented x 3, equal unlabored respirations, skin warm/dry/pink. Vital Signs: 13:44 BP 160 / 66; Pulse 67; Resp 16; Temp 97.9; Pulse Ox 100% on 4 lpm NC; Pain 5/10; hb 15:00 BP 138 / 85; Pulse 97; Resp 19; Pulse Ox 97% on R/A; hb ED Course: 13:44 Patient arrived in ED. hb 13:45 Triage completed. hb 13:45 Arm band placed on. hb 13:48 Tegan Anguiano, RN is Primary Nurse. hb 13:48 Patient has correct armband on for positive identification. Bed in low position. Call hb light in reach. 13:49 Jared Augustin MD is Attending Physician. rn 14:09 CT Lumbar Spine Wo Con In Process Unspecified. EDMS 14:09 CT Thoracic Spine Wo Cont In Process Unspecified. EDMS 14:16 XRAY Chest (1 view) In Process Unspecified. EDMS Administered Medications: 14:36 Drug: Demerol (meperidine) 12.5 mg Route: IVP; Site: right antecubital; hb 15:01 Follow up: Response: No adverse reaction hb 14:36 Drug: Zofran (Ondansetron) 4 mg Route: IVP; Site: right antecubital; hb 15:01 Follow up: Response: No adverse reaction hb 15:50 Drug: Demerol (meperidine) 12.5 mg Route: IVP; Site: right antecubital; hb 16:30 Follow up: Response: No adverse reaction hb Outcome: 15:41 Discharge ordered by . rn 16:38 Patient left the ED. aa5 Signatures: Dispatcher [employer] EDJared Ruiz MD MD rn Calderon, Audri, RN RN aa5 Tegan Anguiano RN RN
--- NOTE | 2020-09-24 15:43 | EDPHYS ---
Physician Documentation [facility] Name: Mary Morataya Age: 80 yrs Sex: Female : 1940 Arrival Date: 09/24/2020 Time: 13:44 Bed 2 Private MD: ED Physician Jared Augustin HPI: 09/24 14:00 This 80 yrs old Female presents to ER via EMS with complaints of Back Pain. rn 14:00 The patient presents with pain that is acute. The symptoms are located in the thoracic rn area and lumbar area. 14:00 Onset: The symptoms/episode began/occurred yesterday. The pain radiates to the chest. rn Associated signs and symptoms: Pertinent negatives: abdominal pain, fever, hematuria, incontinence, nausea, numbness, tingling, urinary retention, vomiting, weakness. Modifying factors: The patient symptoms are alleviated by remaining still, the patient symptoms are aggravated by any movement, coughing. Severity of symptoms: At their worst the symptoms were moderate, in the emergency department the symptoms are unchanged. The patient has experienced similar episodes in the past, chronically. The patient has not recently seen a physician. Reports yesterday was just walking, thinks took wrong step or was on a stepoff, sudden onset mid back pain, radiates along right ribs, no focal injury or fall. Hx of osteoporosis, and previous spinal fractures per patient. Also reports 2 days of cough, has COPD, hurts to cough.. Historical: - Allergies: 13:45 PENICILLINS; hb 13:45 Tetanus Vaccines \T\ Toxoid; hb - Home Meds: 13:45 4L NC home O2 [Active]; hb - PMHx: 13:45 COPD; Pneumonia; hb - Immunization history:: Adult Immunizations up to date. - Social history:: Smoking status: Patient denies any tobacco usage or history of. - Family history:: not pertinent. - Hospitalizations: : No recent hospitalization is reported. ROS: 14:00 Constitutional: Negative for fever, chills, and weight loss, Eyes: Negative for injury, rn pain, redness, and discharge, Neck: Negative for injury, pain, and swelling, Cardiovascular: Negative for palpitations, and edema, Respiratory: Negative for wheezing Abdomen/GI: Negative for abdominal pain, nausea, vomiting, diarrhea, and constipation, Back: + mid back pain, no direct trauma : Negative for injury, bleeding, discharge, and swelling, MS/Extremity: Negative for injury and deformity, Skin: Negative for injury, rash, and discoloration, Neuro: Negative for headache, weakness, numbness, tingling, and seizure. Exam: 14:00 Constitutional: This is a well developed, well nourished patient who is awake, alert, rn appears uncomfortable with movement and twisting back Head/Face: Normocephalic, atraumatic. Eyes: Periorbital areas with no swelling, redness, or edema. Neck: NO midline tenderness Chest/axilla: No focal rib tenderness or crepitus Cardiovascular: Regular rate and rhythm. No pulse deficits. Respiratory: No increased work of breathing, no retractions or nasal flaring. Abdomen/GI: soft, non-tender Skin: Warm, dry MS/ Extremity: Pulses equal, no cyanosis. Neuro: Awake and alert, GCS 15, oriented to person, place, time, and situation. Cranial nerves II-XII grossly intact. Motor strength 5/5 in all extremities. Sensory grossly intact. Vital Signs: 13:44 BP 160 / 66; Pulse 67; Resp 16; Temp 97.9; Pulse Ox 100% on 4 lpm NC; Pain 5/10; hb 15:00 BP 138 / 85; Pulse 97; Resp 19; Pulse Ox 97% on R/A; hb MDM: 13:49 Patient medically screened. rn 15:38 Differential diagnosis: arthritis, chronic back pain, Fatigue Fracture Osteoarthritis. rn Data reviewed: vital signs, nurses notes, lab test result(s), radiologic studies, CT scan, and as a result, I will discharge patient. Counseling: I had a detailed discussion with the patient and/or guardian regarding: the historical points, exam findings, and any diagnostic results supporting the discharge/admit diagnosis, lab results, radiology results, the need for outpatient follow up, to return to the emergency department if symptoms worsen or persist or if there are any questions or concerns that arise at home. Response to treatment: the patient's symptoms have markedly improved after treatment, and as a result, I will discharge patient. Special discussion: I discussed with the patient/guardian in detail that at this point there is no indication for admission to the hospital. It is understood, however, that if the symptoms persist or worsen the patient needs to return immediately for re-evaluation. Based on the history and exam findings, there is no indication for further emergent testing or inpatient evaluation. I discussed with the patient/guardian the need to see the back specialist for further evaluation of the symptoms. ED course: Pt improved, approx 40% compression fracture t9, subacute, matches her location of symptoms. Already sees pain management and has spinal doctor with appt set in 1 week. Will dc home with pain medication prn.. 15:44 ED course: Pmpaware checked, score 320/120/000, no active prescriptions and has spinal rn fracture. . 09/24 13:51 Order name: CBC with Diff; Complete Time: 15:37 rn 09/24 13:51 Order name: Basic Metabolic Panel; Complete Time: 15:21 rn 09/24 13:51 Order name: CT Thoracic Spine Wo Cont; Complete Time: 15:21 rn 09/24 13:51 Order name: CT Lumbar Spine Wo Con; Complete Time: 15:21 rn 09/24 13:51 Order name: XRAY Chest (1 view); Complete Time: 15:21 rn 09/24 13:51 Order name: IV Start; Complete Time: 14:36 rn 09/24 13:51 Order name: EKG; Complete Time: 13:52 rn 09/24 13:51 Order name: EKG - Nurse/Tech; Complete Time: 14:36 rn Administered Medications: 14:36 Drug: Demerol (meperidine) 12.5 mg Route: IVP; Site: right antecubital; hb 15:01 Follow up: Response: No adverse reaction hb 14:36 Drug: Zofran (Ondansetron) 4 mg Route: IVP; Site: right antecubital; hb 15:01 Follow up: Response: No adverse reaction hb 15:50 Drug: Demerol (meperidine) 12.5 mg Route: IVP; Site: right antecubital; hb 16:30 Follow up: Response: No adverse reaction hb Disposition Summary: 09/24/20 15:41 Discharge Ordered Location: Home rn Problem: new rn Symptoms: have improved rn Condition: Stable rn Diagnosis - Wedge compression fracture of unspecified thoracic vertebra - T9 rn Followup: rn - With: Private Physician - When: As needed - Reason: Recheck today's complaints, Re-evaluation by your physician Discharge Instructions: - Discharge Summary Sheet rn - Spinal Compression Fracture rn Forms: - Medication Reconciliation Form rn - Thank You Letter rn - Antibiotic rn geriatric - Prescription Opioid Use rn Prescriptions: - Tramadol 50 mg Oral Tablet - take 1 tablet by ORAL route every 8 hours as needed; 15 tablet; Refills: 0, rn Product Selection Permitted - Cyclobenzaprine 5 mg Oral Tablet - take 1 tablet by ORAL route 3 times per day As needed; 15 tablet; Refills: 0, rn Product Selection Permitted Signatures: Dispatcher [employer] EDMS Jared Augustin MD MD rn Baxter, Heather, RN RN Corrections: (The following items were deleted from the chart) 14:03 14:00 Constitutional: Negative for fever, chills, and weight loss, Eyes: Negative for rn injury, pain, redness, and discharge, Neck: Negative for injury, pain, and swelling, Cardiovascular: Negative for palpitations, and edema, Respiratory: Negative for wheezing Abdomen/GI: Negative for abdominal pain, nausea, vomiting, diarrhea, and constipation, Back: + mid back pain, no direct trauma : Negative for injury, bleeding, discharge, and swelling, MS/Extremity: Negative for injury and deformity, Skin: Negative for injury, rash, and discoloration, Neuro: Negative for headache, weakness, numbness, tingling, and seizure, rn 14:05 14:00 Constitutional: This is a well developed, well nourished patient who is awake, rn alert, and in no acute distress. rn
[2020-09-24 16:45] VITALS: TEMP 97.9
[2020-09-24 16:47] VITALS: BP 138/85; O2SAT 97
--- NOTE | 2020-09-25 16:35 | EKG ---
Test Date: 2020-09-24 Test Time: 14:33:17 Record Changer Tester: RASTA MEASUREMENT RESULTS: Intervals: Rate: 95 CA: 150 QRSD: 76 QT: 366 QTc: 459 Gravelly: P: 72 CA: 150 QRS: 46 T: 81 INTERPRETIVE STATEMENTS: Normal sinus rhythm Normal ECG No previous ECG available for comparison Electronically Signed On 09-25-20 16:33:09 CDT by Be Brooks
== END 2020-09-24 16:38 | disposition home or self-care (01) ==
LOC: ER 13:30
DX: S22.070A Wedge compression fracture of T9-T10 vertebra, initial encounter for closed fracture (principal); J44.9 Chronic obstructive pulmonary disease, unspecified; Z88.0 Allergy status to penicillin; Z88.7 Allergy status to serum and vaccine
CPT/HCPCS: 93005; 85025; 80048; 36415; 72131; 72128; 71045; J2175 ×2; J2405; 96374; 96375; 99283